=== PATIENT | female | born 1995 ===

== ENCOUNTER 2019-11-29 09:43 | Outpatient (REF) | payer MEDICAID, SELFPAY ==
--- NOTE | 2019-11-29 10:43 | XR_ITS ---
EXAMINATION: XR WRIST, RIGHT XR WRIST, LEFT CLINICAL INFORMATION: M05.9 - Rheumatoid arthritis with rheumatoid factor, unspecified COMPARISON: Bilateral hand wrist 07/16/2019 TECHNIQUE: Each wrist is imaged in 4 views. There are a total of 8 views. FINDINGS: Right wrist: There is subtle narrowing proximal radial carpal compartment and some mild narrowing between the triquetrum and hamate. There are no erosive changes. No visible chondrocalcinosis. There is no acute or healing fracture or dislocation. Mild negative ulnar variance present. Probable mild osteopenia. Left wrist: There is mild narrowing proximal radial carpal compartment. There is no erosive change or chondrocalcinosis. No visible acute or healing fracture or dislocation. Ulnar variance is neutral. Probable mild osteopenia. XR/XR wrist LT w scaphoid IMPRESSION: 1. Right: Mild narrowing proximal radial carpal compartment and mild narrowing between the triquetrum and hamate. No erosive change or chondrocalcinosis. Probable mild osteopenia. 2. Left: Mild narrowing proximal radial carpal compartment. No erosive change or chondrocalcinosis. Probable mild osteopenia.
--- NOTE | 2019-11-29 10:43 | XR_ITS ---
EXAMINATION: XR WRIST, RIGHT XR WRIST, LEFT CLINICAL INFORMATION: M05.9 - Rheumatoid arthritis with rheumatoid factor, unspecified COMPARISON: Bilateral hand wrist 07/16/2019 TECHNIQUE: Each wrist is imaged in 4 views. There are a total of 8 views. FINDINGS: Right wrist: There is subtle narrowing proximal radial carpal compartment and some mild narrowing between the triquetrum and hamate. There are no erosive changes. No visible chondrocalcinosis. There is no acute or healing fracture or dislocation. Mild negative ulnar variance present. Probable mild osteopenia. Left wrist: There is mild narrowing proximal radial carpal compartment. There is no erosive change or chondrocalcinosis. No visible acute or healing fracture or dislocation. Ulnar variance is neutral. Probable mild osteopenia. XR/XR wrist RT w scaphoid IMPRESSION: 1. Right: Mild narrowing proximal radial carpal compartment and mild narrowing between the triquetrum and hamate. No erosive change or chondrocalcinosis. Probable mild osteopenia. 2. Left: Mild narrowing proximal radial carpal compartment. No erosive change or chondrocalcinosis. Probable mild osteopenia.
[2019-11-29 10:56] LABS: MANUAL DIFF FLAG NO
[2019-11-29 11:00] LABS: Basophils Absolute Auto 0.1 X10*3/uL (0.0-0.2); Basophils Percent Auto 0.5 % (0-2); Eosinophils Absolute Auto 0.2 X10*3/uL (0.0-0.4); Eosinophils Percent Auto 1.5 % (0-4); Hematocrit 37.2 % (37-47); Hemoglobin 11.6 g/dl (12.0-16.0); Imm Gran Abs Auto 0.04 X10*3/uL (0.00-0.03); Imm Gran Pct Auto 0.4 % (0.0-0.4); Lymphocytes Absolute Auto 2.6 X10*3/uL (1.2-4.9); Lymphocytes Percent Auto 25.4 % (20-40); Mean Corpuscular HGB Conc 31.2 g/dl (31.0-35.0); Mean Corpuscular Volume 83.4 fL (80-98); Monocytes Absolute Auto 0.6 X10*3/uL (0.1-1.2); Monocytes Percent Auto 6.2 % (2-11); Neutrophils Absolute Auto 6.8 X10*3/uL (2.0-8.3); Platelet Count 504 X10*3/uL (160-400); Red Blood Count 4.46 X10*6/uL (4.20-5.50); Red Cell Distribution Width 14.9 % (11.0-16.0); White Blood Count 10.3 X10*3/uL (4.8-10.8)
[2019-11-29 12:09] LABS: Alanine Aminotransferase 13 U/L (0-31); Alkaline Phosphatase 77 U/L (39-117); Anion Gap 13 (12-20); Aspartate Amino Transferase 13 U/L (5-31); Bilirubin Total 0.4 mg/dL (0.0-1.0); Blood Urea Nitrogen 14 mg/dL (9-16); C Reactive Protein 4.52 mg/dL (< or = 0.50); Calcium 8.6 mg/dL (8.4-10.2); Carbon Dioxide 21 mmol/L (22-29); Chloride 106 mmol/L (96-108); Estimated Glomerular Filt Rate > 60; Glucose Random 84 mg/dL (60-115); Potassium 4.3 mmol/l (3.3-5.1); Sodium 136 mmol/L (135-145); Total Protein 7.6 g/dL (6.5-8.0)
[2019-11-29 13:02] LABS: Erythrocyte Sedimentation Rate 34 MM/HR (0-20)
== END 2019-11-29 09:44 | disposition home or self-care (01) ==
LOC: HO.XRAY 09:43
PROVIDERS: PCP Internal Medicine; Referring Provider Internal Medicine; Visit Provider Student in an Organized Health Care Education/Training Program
DX: M05.9 Rheumatoid arthritis with rheumatoid factor, unspecified (principal); E55.9 Vitamin D deficiency, unspecified
CPT/HCPCS: 36415; 73110; 80053; 85025; 85652; 86140; 99214

== ENCOUNTER → 2019-12-11 07:25 | Outpatient (BNVA) | payer MEDICAID, SELFPAY | PROVIDERS: PCP Internal Medicine; Referring Provider Internal Medicine; Visit Provider Student in an Organized Health Care Education/Training Program | DX: M06.9 Rheumatoid arthritis, unspecified (principal); Z71.89 Other specified counseling | CPT/HCPCS: 99211 ==

== ENCOUNTER 2020-03-11 14:16 | Outpatient (REF) | payer MEDICAID, SELFPAY ==
[2020-03-11 15:47] LABS: MANUAL DIFF FLAG NO
[2020-03-11 15:51] LABS: Basophils Absolute Auto 0.1 X10*3/uL (0.0-0.2); Basophils Percent Auto 0.6 % (0-2); Eosinophils Absolute Auto 0.2 X10*3/uL (0.0-0.4); Eosinophils Percent Auto 1.9 % (0-4); Hematocrit 40.9 % (37-47); Hemoglobin 12.7 g/dl (12.0-16.0); Imm Gran Abs Auto 0.02 X10*3/uL (0.00-0.03); Imm Gran Pct Auto 0.2 % (0.0-0.4); Lymphocytes Absolute Auto 3.3 X10*3/uL (1.2-4.9); Lymphocytes Percent Auto 35.5 % (20-40); Mean Corpuscular HGB Conc 31.1 g/dl (31.0-35.0); Mean Corpuscular Volume 83.8 fL (80-98); Mean Platelet Volume 9.5 fL (9.4-12.3); Monocytes Absolute Auto 0.6 X10*3/uL (0.1-1.2); Monocytes Percent Auto 6.5 % (2-11); Neutrophils Absolute Auto 5.1 X10*3/uL (2.0-8.3); Neutrophils Percent Auto 55.3 % (45-73); Platelet Count 469 X10*3/uL (160-400); Red Blood Count 4.88 X10*6/uL (4.20-5.50); Red Cell Distribution Width 14.6 % (11.0-16.0); White Blood Count 9.3 X10*3/uL (4.8-10.8)
[2020-03-11 16:17] LABS: Alanine Aminotransferase 13 U/L (0-31); Albumin Level 4.2 g/dL (3.5-5.0); Alkaline Phosphatase 82 U/L (39-117); Anion Gap 14 (12-20); Aspartate Amino Transferase 14 U/L (5-31); Bilirubin Total 0.4 mg/dL (0.0-1.0); Blood Urea Nitrogen 14 mg/dL (9-16); C Reactive Protein 3.27 mg/dL (< or = 0.50); Calcium 9.1 mg/dL (8.4-10.2); Carbon Dioxide 24 mmol/L (22-29); Chloride 104 mmol/L (96-108); Estimated Glomerular Filt Rate > 60; Glucose Random 88 mg/dL (60-115); Potassium 4.5 mmol/L (3.3-5.1); Sodium 137 mmol/L (135-145)
[2020-03-11 16:41] LABS: Erythrocyte Sedimentation Rate 28 MM/HR (0-20)
[2020-03-14 22:12] LABS: Vitamin D 25-OH, D2 5 ng/mL; Vitamin D 25-OH, D3 10 ng/mL; Vitamin D 25-OH, Total 15 ng/mL (30-100)
== END 2020-03-11 14:17 | disposition home or self-care (01) ==
LOC: HO.LAB 14:16
PROVIDERS: PCP Internal Medicine; Referring Provider Internal Medicine; Visit Provider Student in an Organized Health Care Education/Training Program
DX: M05.9 Rheumatoid arthritis with rheumatoid factor, unspecified (principal); E55.9 Vitamin D deficiency, unspecified
CPT/HCPCS: 36415; 80053; 82306; 85025; 85652; 86140; 99212

== ENCOUNTER 2020-11-09 17:06 | Outpatient (REF) | payer MEDICAID, SELFPAY ==
[2020-11-09 17:20] LABS: MANUAL DIFF FLAG NO
[2020-11-09 18:06] LABS: Basophils Absolute Auto 0.1 X10*3/uL (0.0-0.2); Basophils Percent Auto 0.7 % (0-2); Eosinophils Absolute Auto 0.2 X10*3/uL (0.0-0.4); Eosinophils Percent Auto 2.2 % (0-4); Hematocrit 38.8 % (37-47); Hemoglobin 12.6 g/dl (12.0-16.0); Imm Gran Abs Auto 0.02 X10*3/uL (0.00-0.03); Imm Gran Pct Auto 0.2 % (0.0-0.4); Lymphocytes Absolute Auto 3.8 X10*3/uL (1.2-4.9); Lymphocytes Percent Auto 42.1 % (20-40); Mean Corpuscular HGB Conc 32.5 g/dl (31.0-35.0); Mean Corpuscular Hemoglobin 27.3 pg (27.0-33.0); Mean Platelet Volume 9.4 fL (9.4-12.3); Monocytes Absolute Auto 0.6 X10*3/uL (0.1-1.2); Monocytes Percent Auto 6.3 % (2-11); Neutrophils Absolute Auto 4.4 X10*3/uL (2.0-8.3); Neutrophils Percent Auto 48.5 % (45-73); Platelet Count 459 X10*3/uL (160-400); Red Blood Count 4.62 X10*6/uL (4.20-5.50); Red Cell Distribution Width 14.3 % (11.0-16.0)
[2020-11-09 18:27] LABS: Alanine Aminotransferase 12 U/L (0-31); Albumin Level 4.3 g/dL (3.5-5.0); Alkaline Phosphatase 91 U/L (39-117); Anion Gap 12 (12-20); Aspartate Amino Transferase 14 U/L (5-31); Bilirubin Total 0.2 mg/dL (0.0-1.0); Blood Urea Nitrogen 13 mg/dL (9-16); C Reactive Protein 1.92 mg/dL (< or = 0.50); Calcium 9.3 mg/dL (8.4-10.2); Carbon Dioxide 24 mmol/L (22-29); Chloride 106 mmol/L (96-108); Estimated Glomerular Filt Rate > 60; Glucose Random 90 mg/dL (60-115); Potassium 4.2 mmol/L (3.3-5.1); Sodium 138 mmol/L (135-145); Total Protein 7.9 g/dL (6.5-8.0)
[2020-11-09 18:51] LABS: Erythrocyte Sedimentation Rate 18 MM/HR (0-20)
== END 2020-11-09 17:07 | disposition home or self-care (01) ==
LOC: HO.LAB 17:06
PROVIDERS: Student in an Organized Health Care Education/Training Program; PCP Internal Medicine; Visit Provider Nurse Practitioner Family
DX: M05.9 Rheumatoid arthritis with rheumatoid factor, unspecified (principal)
CPT/HCPCS: 36415; 80053; 85025; 85652; 86140

== ENCOUNTER → 2020-11-10 09:03 | Outpatient (BNVA) | payer MEDICAID, SELFPAY | PROVIDERS: PCP Internal Medicine; Visit Provider Nurse Practitioner Family | DX: M05.9 Rheumatoid arthritis with rheumatoid factor, unspecified (principal); E55.9 Vitamin D deficiency, unspecified | CPT/HCPCS: 99212 ==

== ENCOUNTER 2021-01-08 11:30 | Outpatient (REF) | payer MEDICAID, SELFPAY ==
[2021-01-08 12:16] LABS: MANUAL DIFF FLAG NO
[2021-01-08 12:49] LABS: Basophils Absolute Auto 0.1 X10*3/uL (0.0-0.2); Basophils Percent Auto 0.7 % (0-2); Eosinophils Absolute Auto 0.1 X10*3/uL (0.0-0.4); Eosinophils Percent Auto 1.5 % (0-4); Hematocrit 40.2 % (37.0-47.0); Hemoglobin 12.9 g/dl (12.0-16.0); Imm Gran Abs Auto 0.02 X10*3/uL (0.00-0.03); Imm Gran Pct Auto 0.2 % (0.0-0.4); Lymphocytes Absolute Auto 3.1 X10*3/uL (1.2-4.9); Lymphocytes Percent Auto 38.1 % (20-40); Mean Corpuscular HGB Conc 32.1 g/dl (31.0-35.0); Mean Corpuscular Hemoglobin 27.3 pg (27.0-33.0); Mean Corpuscular Volume 85.2 fL (80.0-98.0); Mean Platelet Volume 9.4 fL (9.4-12.3); Monocytes Absolute Auto 0.8 X10*3/uL (0.1-1.2); Monocytes Percent Auto 9.9 % (2-11); Neutrophils Absolute Auto 4.1 x10*3/uL (2.0-8.3); Neutrophils Percent Auto 49.6 % (45-73); Platelet Count 453 X10*3/uL (160-400); Red Blood Count 4.72 X10*6/uL (4.20-5.50); Red Cell Distribution Width 13.9 % (11.0-16.0); White Blood Count 8.2 X10*3/uL (4.8-10.8)
[2021-01-08 13:16] LABS: Alanine Aminotransferase 18 U/L (0-31); Albumin Level 4.4 g/dL (3.5-5.0); Alkaline Phosphatase 90 U/L (39-117); Anion Gap 13 (12-20); Aspartate Amino Transferase 16 U/L (5-31); Bilirubin Total 0.4 mg/dL (0.0-1.0); Blood Urea Nitrogen 9 mg/dL (9-16); C Reactive Protein 1.03 mg/dL (< or = 0.50); Calcium 9.7 mg/dL (8.4-10.2); Carbon Dioxide 24 mmol/L (22-29); Chloride 108 mmol/L (96-108); Estimated Glomerular Filt Rate > 60; Glucose Random 68 mg/dL (60-115); Potassium 4.2 mmol/L (3.3-5.1); Sodium 141 mmol/L (135-145)
[2021-01-08 13:38] LABS: Vitamin D 25-OH Total 13.6 ng/mL (>30)
[2021-01-08 13:40] LABS: Erythrocyte Sedimentation Rate 13 MM/HR (0-20)
== END 2021-01-08 11:31 | disposition home or self-care (01) ==
LOC: HO.LAB 11:30
PROVIDERS: PCP Internal Medicine; Visit Provider Nurse Practitioner Family
DX: M05.9 Rheumatoid arthritis with rheumatoid factor, unspecified (principal); E55.9 Vitamin D deficiency, unspecified; Z79.899 Other long term (current) drug therapy
CPT/HCPCS: 36415; 80053; 82306; 85025; 85652; 86140; 99212

== ENCOUNTER 2021-06-15 17:02 | Outpatient (REF) | payer MEDICAID, SELFPAY ==
[2021-06-15 17:12] LABS: MANUAL DIFF FLAG NO
[2021-06-15 17:52] LABS: Basophils Absolute Auto 0.1 X10*3/uL (0.0-0.2); Basophils Percent Auto 0.6 % (0-2); Eosinophils Absolute Auto 0.4 X10*3/uL (0.0-0.4); Eosinophils Percent Auto 4.4 % (0-4); Hemoglobin 12.1 g/dl (12.0-16.0); Imm Gran Abs Auto 0.03 X10*3/uL (0.00-0.03); Imm Gran Pct Auto 0.3 % (0.0-0.4); Lymphocytes Absolute Auto 3.5 X10*3/uL (1.2-4.9); Mean Corpuscular HGB Conc 31.8 g/dl (31.0-35.0); Mean Corpuscular Hemoglobin 26.5 pg (27.0-33.0); Mean Corpuscular Volume 83.3 fL (80.0-98.0); Mean Platelet Volume 9.1 fL (9.4-12.3); Monocytes Absolute Auto 0.6 X10*3/uL (0.1-1.2); Monocytes Percent Auto 6.8 % (2-11); Neutrophils Absolute Auto 4.8 x10*3/uL (2.0-8.3); Neutrophils Percent Auto 50.9 % (45-73); Platelet Count 460 X10*3/uL (160-400); Red Blood Count 4.56 X10*6/uL (4.20-5.50); Red Cell Distribution Width 14.7 % (11.0-16.0); White Blood Count 9.4 X10*3/uL (4.8-10.8)
[2021-06-15 18:17] LABS: Alanine Aminotransferase 9 U/L (0-31); Albumin Level 4.1 g/dL (3.5-5.0); Alkaline Phosphatase 84 U/L (39-117); Anion Gap 12 (12-20); Aspartate Amino Transferase 11 U/L (5-31); Bilirubin Total < 0.2 mg/dL (0.0-1.0); Blood Urea Nitrogen 14 mg/dL (9-16); C Reactive Protein 4.51 mg/dL (< or = 0.50); Calcium 9.7 mg/dL (8.4-10.2); Carbon Dioxide 23 mmol/L (22-29); Chloride 106 mmol/L (96-108); Estimated Glomerular Filt Rate > 60; Glucose Random 90 mg/dL (60-115); Potassium 4.2 mmol/L (3.3-5.1); Sodium 137 mmol/L (135-145); Total Protein 7.8 g/dL (6.5-8.0)
[2021-06-15 18:24] LABS: Erythrocyte Sedimentation Rate 27 MM/HR (0-20)
== END 2021-06-15 17:03 | disposition home or self-care (01) ==
LOC: HO.LAB 17:02
PROVIDERS: PCP Internal Medicine; Visit Provider Nurse Practitioner Family
DX: M05.9 Rheumatoid arthritis with rheumatoid factor, unspecified (principal)
CPT/HCPCS: 36415; 80053; 85025; 85652; 86140

== ENCOUNTER 2021-06-21 16:47 | Outpatient (REF) | payer MEDICAID, SELFPAY ==
[2021-06-21 16:55] LABS: MANUAL DIFF FLAG NO
[2021-06-21 18:25] LABS: Basophils Absolute Auto 0.1 X10*3/uL (0.0-0.2); Basophils Percent Auto 0.5 % (0-2); Eosinophils Absolute Auto 0.4 X10*3/uL (0.0-0.4); Eosinophils Percent Auto 3.6 % (0-4); Hematocrit 39.7 % (37.0-47.0); Hemoglobin 12.7 g/dl (12.0-16.0); Imm Gran Abs Auto 0.03 X10*3/uL (0.00-0.03); Imm Gran Pct Auto 0.3 % (0.0-0.4); Lymphocytes Percent Auto 36.1 % (20-40); Mean Corpuscular Hemoglobin 26.7 pg (27.0-33.0); Mean Corpuscular Volume 83.4 fL (80.0-98.0); Mean Platelet Volume 9.6 fL (9.4-12.3); Monocytes Absolute Auto 0.8 X10*3/uL (0.1-1.2); Monocytes Percent Auto 7.2 % (2-11); Neutrophils Absolute Auto 5.7 x10*3/uL (2.0-8.3); Neutrophils Percent Auto 52.3 % (45-73); Platelet Count 476 X10*3/uL (160-400); Red Blood Count 4.76 X10*6/uL (4.20-5.50); Red Cell Distribution Width 14.4 % (11.0-16.0); White Blood Count 10.9 X10*3/uL (4.8-10.8)
[2021-06-21 18:51] LABS: Alanine Aminotransferase 12 U/L (0-31); Albumin Level 4.1 g/dL (3.5-5.0); Alkaline Phosphatase 82 U/L (39-117); Anion Gap 13 (12-20); Aspartate Amino Transferase 13 U/L (5-31); Bilirubin Total 0.3 mg/dL (0.0-1.0); Blood Urea Nitrogen 13 mg/dL (9-16); C Reactive Protein 1.78 mg/dL (< or = 0.50); Calcium 9.7 mg/dL (8.4-10.2); Carbon Dioxide 25 mmol/L (22-29); Chloride 104 mmol/L (96-108); Estimated Glomerular Filt Rate > 60; Glucose Random 87 mg/dL (60-115); Potassium 4.5 mmol/L (3.3-5.1); Sodium 137 mmol/L (135-145)
[2021-06-21 19:18] LABS: Erythrocyte Sedimentation Rate 17 MM/HR (0-20)
== END 2021-06-21 16:48 | disposition home or self-care (01) ==
LOC: HO.LAB 16:47
PROVIDERS: PCP Internal Medicine; Visit Provider Nurse Practitioner Family
DX: M05.9 Rheumatoid arthritis with rheumatoid factor, unspecified (principal)
CPT/HCPCS: 36415; 80053; 85025; 85652; 86140

== ENCOUNTER → 2021-06-30 08:45 | Outpatient (BNVA) | payer MEDICAID, SELFPAY | PROVIDERS: PCP Internal Medicine; Visit Provider Nurse Practitioner Family | DX: M05.9 Rheumatoid arthritis with rheumatoid factor, unspecified (principal); E55.9 Vitamin D deficiency, unspecified; Z79.899 Other long term (current) drug therapy | CPT/HCPCS: 99212 ==

== ENCOUNTER 2021-07-01 16:59 | Outpatient (REF) | payer MEDICAID, SELFPAY ==
[2021-07-01 17:12] LABS: MANUAL DIFF FLAG NO
[2021-07-01 17:31] LABS: Basophils Absolute Auto 0.1 X10*3/uL (0.0-0.2); Basophils Percent Auto 0.8 % (0-2); Eosinophils Absolute Auto 0.2 X10*3/uL (0.0-0.4); Hematocrit 39.7 % (37.0-47.0); Hemoglobin 12.4 g/dl (12.0-16.0); Imm Gran Abs Auto 0.04 X10*3/uL (0.00-0.03); Imm Gran Pct Auto 0.4 % (0.0-0.4); Lymphocytes Absolute Auto 4.3 X10*3/uL (1.2-4.9); Lymphocytes Percent Auto 41.7 % (20-40); Mean Corpuscular HGB Conc 31.2 g/dl (31.0-35.0); Mean Corpuscular Hemoglobin 26.3 pg (27.0-33.0); Mean Corpuscular Volume 84.3 fL (80.0-98.0); Mean Platelet Volume 9.4 fL (9.4-12.3); Monocytes Absolute Auto 0.6 X10*3/uL (0.1-1.2); Monocytes Percent Auto 5.9 % (2-11); Neutrophils Percent Auto 49.2 % (45-73); Platelet Count 496 X10*3/uL (160-400); Red Blood Count 4.71 X10*6/uL (4.20-5.50); Red Cell Distribution Width 14.6 % (11.0-16.0); White Blood Count 10.2 X10*3/uL (4.8-10.8)
[2021-07-01 18:02] LABS: Erythrocyte Sedimentation Rate 14 MM/HR (0-20)
[2021-07-01 18:21] LABS: Alanine Aminotransferase 12 U/L (0-31); Albumin Level 4.2 g/dL (3.5-5.0); Alkaline Phosphatase 83 U/L (39-117); Anion Gap 13 (12-20); Aspartate Amino Transferase 12 U/L (5-31); Bilirubin Total < 0.2 mg/dL (0.0-1.0); Blood Urea Nitrogen 11 mg/dL (9-16); C Reactive Protein 1.39 mg/dL (< or = 0.50); Calcium 9.6 mg/dL (8.4-10.2); Carbon Dioxide 26 mmol/L (22-29); Chloride 105 mmol/L (96-108); Estimated Glomerular Filt Rate > 60; Glucose Random 98 mg/dL (60-115); Potassium 4.5 mmol/L (3.3-5.1); Sodium 139 mmol/L (135-145)
[2021-07-02 05:02] LABS: HBS Num1 0.89 mIU/mL (0-7.99); HBc Num1 0.05 S/CO (0.00-0.79); Hepatitis A Antibody IgM 0.25 Index (0-0.79); Hepatitis B Core Antibody Nonreactive (Nonreactive); Hepatitis B Surface Antigen Negative (Negative); ~HepC Num1 0.08 S/CO (0.00-0.79); ~Hepatitis A Antibody IgM Nonreactive (Nonreactive); ~Hepatitis B Surface Antibody NONREACTIVE (Nonreactive); ~Hepatitis C Antibody Nonreactive (Nonreactive)
[2021-07-05 12:55] LABS: Vitamin D 25-OH, D2 <4 ng/mL; Vitamin D 25-OH, D3 17 ng/mL; Vitamin D 25-OH, Total 17 ng/mL (30-100)
== END 2021-07-01 17:00 | disposition home or self-care (01) ==
LOC: HO.LAB 16:59
PROVIDERS: PCP Internal Medicine; Visit Provider Nurse Practitioner Family
DX: M05.9 Rheumatoid arthritis with rheumatoid factor, unspecified (principal); R79.89 Other specified abnormal findings of blood chemistry
CPT/HCPCS: 36415; 80053; 82306; 85025; 85652; 86140; 86704; 86706; 86709; 86803; 87340

== ENCOUNTER 2021-07-02 16:46 | Outpatient (REF) | payer MEDICAID, SELFPAY ==
[2021-07-06 05:52] LABS: TS Negative Control Passed; TS Panel A 0; TS Panel B 0; TS Positive Control Passed; TSpotTB Negative (Negative)
== END 2021-07-02 16:47 | disposition home or self-care (01) ==
LOC: HO.LAB 16:46
PROVIDERS: PCP Internal Medicine; Visit Provider Nurse Practitioner Family
DX: M05.9 Rheumatoid arthritis with rheumatoid factor, unspecified (principal); Z11.1 Encounter for screening for respiratory tuberculosis
CPT/HCPCS: 36415; 86481

== ENCOUNTER → 2021-08-05 09:28 | Outpatient (BNVA) | payer MEDICAID, SELFPAY | PROVIDERS: PCP Internal Medicine; Visit Provider Nurse Practitioner Family | DX: M05.9 Rheumatoid arthritis with rheumatoid factor, unspecified (principal); D75.839 Thrombocytosis, unspecified; E55.9 Vitamin D deficiency, unspecified | CPT/HCPCS: 99212 ==

== ENCOUNTER 2021-08-06 16:54 | Outpatient (REF) | payer MEDICAID, SELFPAY ==
[2021-08-06 17:09] LABS: Basophils Absolute Auto 0.1 X10*3/uL (0.0-0.2); Basophils Percent Auto 0.5 % (0-2); Eosinophils Absolute Auto 0.2 X10*3/uL (0.0-0.4); Eosinophils Percent Auto 1.4 % (0-4); Hematocrit 40.6 % (37.0-47.0); Imm Gran Abs Auto 0.03 X10*3/uL (0.00-0.03); Imm Gran Pct Auto 0.3 % (0.0-0.4); Lymphocytes Absolute Auto 5.3 X10*3/uL (1.2-4.9); Lymphocytes Percent Auto 45.9 % (20-40); MANUAL DIFF FLAG SCAN; Mean Corpuscular Hemoglobin 27.1 pg (27.0-33.0); Mean Corpuscular Volume 84.6 fL (80.0-98.0); Mean Platelet Volume 9.1 fL (9.4-12.3); Monocytes Absolute Auto 0.6 X10*3/uL (0.1-1.2); Neutrophils Absolute Auto 5.5 x10*3/uL (2.0-8.3); Neutrophils Percent Auto 46.9 % (45-73); Platelet Count 458 X10*3/uL (160-400); Red Cell Distribution Width 14.7 % (11.0-16.0); SCAN SMEAR FLAG 1; White Blood Count 11.6 X10*3/uL (4.8-10.8)
[2021-08-06 17:32] LABS: SLIDE REVIEW VERIFIED
[2021-08-06 17:34] LABS: Alanine Aminotransferase 12 U/L (0-31); Albumin Level 4.3 g/dL (3.5-5.0); Alkaline Phosphatase 92 U/L (39-117); Anion Gap 13 (12-20); Aspartate Amino Transferase 13 U/L (5-31); Bilirubin Total 0.3 mg/dL (0.0-1.0); Blood Urea Nitrogen 10 mg/dL (9-16); C Reactive Protein 0.73 mg/dL (< or = 0.50); Calcium 9.7 mg/dL (8.4-10.2); Carbon Dioxide 26 mmol/L (22-29); Chloride 104 mmol/L (96-108); Cholesterol 168 mg/dL; Estimated Glomerular Filt Rate > 60; Glucose Random 81 mg/dL (60-115); HDL Cholesterol 36 mg/dL; LDL Cholesterol Calculated 108 mg/dl; Potassium 4.3 mmol/L (3.3-5.1); Sodium 139 mmol/L (135-145); Total Protein 7.7 g/dL (6.5-8.0); Triglycerides 124 mg/dL
[2021-08-06 17:53] LABS: Vitamin D 25-OH Total 20.5 ng/mL (>30)
[2021-08-06 18:01] LABS: Erythrocyte Sedimentation Rate 9 MM/HR (0-20)
== END 2021-08-06 16:55 | disposition home or self-care (01) ==
LOC: HO.XRAY 16:54
PROVIDERS: PCP Internal Medicine; Visit Provider Nurse Practitioner Family
DX: M05.9 Rheumatoid arthritis with rheumatoid factor, unspecified (principal); E55.9 Vitamin D deficiency, unspecified
CPT/HCPCS: 36415; 80053; 80061; 82306; 85025; 85652; 86140

== ENCOUNTER 2021-08-17 16:51 | Outpatient (REF) | payer MEDICAID, SELFPAY ==
--- NOTE | ~2021-08-17 | XR_ITS ---
EXAMINATION: XR WRIST, RIGHT CLINICAL INFORMATION: Pain COMPARISON: Right wrist radiograph from 11/28/2021 TECHNIQUE: 5 views of the right wrist. FINDINGS: No acute visible fracture or dislocation. Interval progression of the radiocarpal joint space narrowing with subchondral cystic changes, sclerosis, and periarticular osteophyte formation. Joint spaces and alignment are otherwise maintained. Soft tissues are unremarkable. XR/XR wrist RT 2V IMPRESSION: 1. No acute visible fracture or dislocation. 2. Interval progression of the radiocarpal joint space narrowing.
== END 2021-08-17 16:52 | disposition home or self-care (01) ==
LOC: HO.XRAY 16:51
PROVIDERS: PCP Internal Medicine; Visit Provider Nurse Practitioner Family
DX: M25.531 Pain in right wrist (principal)
CPT/HCPCS: 73100

== ENCOUNTER 2021-09-28 11:00 | Outpatient (REF) | payer MEDICAID, SELFPAY ==
--- NOTE | ~2021-09-28 | XR_ITS ---
EXAMINATION: XR ANKLE, LEFT CLINICAL INFORMATION: Left ankle pain COMPARISON: Left ankle radiographs 07/16/2019 TECHNIQUE: AP, lateral, and mortise views of the left ankle. FINDINGS: No fracture or dislocation. No ankle joint effusion. Ankle mortise is congruent and intact. Ankle and subtalar joint spaces are maintained. Small calcification/ossicle of the distal Achilles tendon at the calcaneal insertion. Small Elma exostosis noted. No appreciable thickening of the Achilles tendon. XR/XR ankle LT min 3V IMPRESSION: No acute osseous injury or osteoarthritic change.
== END 2021-09-28 11:01 | disposition home or self-care (01) ==
LOC: HO.XRAY 11:00
PROVIDERS: PCP Internal Medicine; Visit Provider Emergency Medicine
DX: M25.572 Pain in left ankle and joints of left foot (principal)
CPT/HCPCS: 73610

== ENCOUNTER → 2021-11-05 07:53 | Outpatient (BNVA) | payer MEDICAID, SELFPAY | PROVIDERS: PCP Internal Medicine; Visit Provider Nurse Practitioner Family | DX: M05.9 Rheumatoid arthritis with rheumatoid factor, unspecified (principal); E55.9 Vitamin D deficiency, unspecified; D75.839 Thrombocytosis, unspecified | CPT/HCPCS: 99212 ==

== ENCOUNTER 2021-11-10 12:19 | Outpatient (REF) | payer MEDICAID, SELFPAY ==
[2021-11-10 12:38] LABS: MANUAL DIFF FLAG NO
[2021-11-10 13:17] LABS: Basophils Absolute Auto 0.1 X10*3/uL (0.0-0.2); Basophils Percent Auto 0.4 % (0-2); Eosinophils Absolute Auto 0.1 X10*3/uL (0.0-0.4); Eosinophils Percent Auto 0.6 % (0-4); Hemoglobin 12.3 g/dl (12.0-16.0); Imm Gran Abs Auto 0.06 X10*3/uL (0.00-0.03); Imm Gran Pct Auto 0.5 % (0.0-0.4); Lymphocytes Absolute Auto 4.2 X10*3/uL (1.2-4.9); Lymphocytes Percent Auto 33.2 % (20-40); Mean Corpuscular HGB Conc 31.5 g/dl (31.0-35.0); Mean Corpuscular Volume 85.5 fL (80.0-98.0); Mean Platelet Volume 9.2 fL (9.4-12.3); Monocytes Absolute Auto 0.7 X10*3/uL (0.1-1.2); Monocytes Percent Auto 5.3 % (2-11); Neutrophils Absolute Auto 7.6 x10*3/uL (2.0-8.3); Platelet Count 576 X10*3/uL (160-400); Red Blood Count 4.56 X10*6/uL (4.20-5.50); Red Cell Distribution Width 13.9 % (11.0-16.0); White Blood Count 12.7 X10*3/uL (4.8-10.8)
[2021-11-10 13:56] LABS: Alanine Aminotransferase 10 U/L (0-31); Albumin Level 4.3 g/dL (3.5-5.0); Alkaline Phosphatase 79 U/L (39-117); Anion Gap 15 (12-20); Aspartate Amino Transferase 12 U/L (5-31); Bilirubin Total 0.3 mg/dL (0.0-1.0); Blood Urea Nitrogen 13 mg/dL (9-16); C Reactive Protein 1.92 mg/dL (< or = 0.50); Calcium 9.8 mg/dL (8.4-10.2); Carbon Dioxide 27 mmol/L (22-29); Chloride 105 mmol/L (96-108); Erythrocyte Sedimentation Rate 25 MM/HR (0-20); Estimated Glomerular Filt Rate > 60; Glucose Random 83 mg/dL (60-115); Sodium 143 mmol/L (135-145); Total Protein 7.8 g/dL (6.5-8.0)
[2021-11-10 14:19] LABS: Vitamin D 25-OH Total 27.2 ng/mL (>30)
== END 2021-11-10 12:20 | disposition home or self-care (01) ==
LOC: HO.LAB 12:19
PROVIDERS: Internal Medicine Medical Oncology; PCP Internal Medicine; Visit Provider Nurse Practitioner Family
DX: D75.839 Thrombocytosis, unspecified (principal); M05.9 Rheumatoid arthritis with rheumatoid factor, unspecified; E55.9 Vitamin D deficiency, unspecified
CPT/HCPCS: 36415; 80053; 82306; 85025; 85652; 86140

== ENCOUNTER 2022-02-08 10:23 | Outpatient (REF) | payer MEDICAID, SELFPAY ==
[2022-02-08 13:45] LABS: MANUAL DIFF FLAG NO
[2022-02-08 13:53] LABS: Basophils Percent Auto 0.4 % (0-2); Eosinophils Absolute Auto 0.1 X10*3/uL (0.0-0.4); Eosinophils Percent Auto 1.1 % (0-4); Hemoglobin 11.7 g/dl (12.0-16.0); Imm Gran Abs Auto 0.05 X10*3/uL (0.00-0.03); Imm Gran Pct Auto 0.5 % (0.0-0.4); Lymphocytes Absolute Auto 1.9 X10*3/uL (1.2-4.9); Lymphocytes Percent Auto 17.9 % (20-40); Mean Corpuscular HGB Conc 30.8 g/dl (31.0-35.0); Mean Corpuscular Hemoglobin 25.5 pg (27.0-33.0); Mean Platelet Volume 9.6 fL (9.4-12.3); Monocytes Absolute Auto 0.6 X10*3/uL (0.1-1.2); Monocytes Percent Auto 5.4 % (2-11); Neutrophils Absolute Auto 8.1 x10*3/uL (2.0-8.3); Neutrophils Percent Auto 74.7 % (45-73); Platelet Count 494 X10*3/uL (160-400); Red Blood Count 4.58 X10*6/uL (4.20-5.50); Red Cell Distribution Width 14.8 % (11.0-16.0); White Blood Count 10.8 X10*3/uL (4.8-10.8)
[2022-02-08 14:05] LABS: Alanine Aminotransferase 11 U/L (0-31); Aspartate Amino Transferase 13 U/L (5-31); C Reactive Protein 2.25 mg/dL (< or = 0.50); Cholesterol 161 mg/dL; Estimated Glomerular Filt Rate > 60; HDL Cholesterol 35 mg/dL; LDL Cholesterol Calculated 109 mg/dl; Triglycerides 85 mg/dL
[2022-02-08 14:45] LABS: Erythrocyte Sedimentation Rate 31 MM/HR (0-20)
[2022-02-08 15:01] LABS: Reflex LDLD? No
== END 2022-02-08 10:24 | disposition home or self-care (01) ==
LOC: HO.10HDL 10:23
PROVIDERS: Visit Provider Nurse Practitioner Family
DX: M05.9 Rheumatoid arthritis with rheumatoid factor, unspecified (principal); Z79.899 Other long term (current) drug therapy
CPT/HCPCS: 36415; 80061; 82565; 84450; 84460; 85025; 85652; 86140

== ENCOUNTER → 2022-03-04 10:19 | Outpatient (BNVA) | payer MEDICAID, SELFPAY | PROVIDERS: PCP Internal Medicine; Visit Provider Nurse Practitioner Family | DX: M05.9 Rheumatoid arthritis with rheumatoid factor, unspecified (principal); M25.522 Pain in left elbow; E55.9 Vitamin D deficiency, unspecified; D75.839 Thrombocytosis, unspecified; Z79.899 Other long term (current) drug therapy; Z97.5 Presence of (intrauterine) contraceptive device | CPT/HCPCS: 99212 ==

== ENCOUNTER 2022-03-08 08:36 | Outpatient (REF) | payer MEDICAID, SELFPAY ==
[2022-03-08 10:37] LABS: MANUAL DIFF FLAG NO
[2022-03-08 10:44] LABS: Baso%MD 0.9 %; Basophils Absolute Auto 0.1 X10*3/uL (0.0-0.2); Basophils Percent Auto 0.9 % (0-2); Eos%MD 1.4 %; Eosinophils Absolute Auto 0.1 X10*3/uL (0.0-0.4); Eosinophils Percent Auto 1.4 % (0-4); Hematocrit 41.1 % (37.0-47.0); Hemoglobin 12.8 g/dl (12.0-16.0); IG%MD 0.2 %; Imm Gran Abs Auto 0.01 X10*3/uL (0.00-0.03); Imm Gran Pct Auto 0.2 % (0.0-0.4); Lymphocytes Absolute Auto 1.8 X10*3/uL (1.2-4.9); Mean Corpuscular HGB Conc 31.1 g/dl (31.0-35.0); Mean Corpuscular Hemoglobin 26.1 pg (27.0-33.0); Mean Corpuscular Volume 83.7 fL (80.0-98.0); Mean Platelet Volume 9.3 fL (9.4-12.3); Mono%MD 4.3 %; Monocytes Absolute Auto 0.3 X10*3/uL (0.1-1.2); Monocytes Percent Auto 4.3 % (2-11); Neut%MD 62.2 %; Neutrophils Absolute Auto 3.6 x10*3/uL (2.0-8.3); Neutrophils Percent Auto 62.2 % (45-73); Platelet Count 449 X10*3/uL (160-400); Red Blood Count 4.91 X10*6/uL (4.20-5.50); Red Cell Distribution Width 15.4 % (11.0-16.0); White Blood Count 5.8 X10*3/uL (4.8-10.8)
[2022-03-08 12:03] LABS: Ferritin 42 ng/mL (10-122)
[2022-03-08 12:05] LABS: Alanine Aminotransferase 13 U/L (0-31); Albumin Level 4.1 g/dL (3.5-5.0); Alkaline Phosphatase 85 U/L (39-117); Anion Gap 12 (12-20); Aspartate Amino Transferase 14 U/L (5-31); Bilirubin Total 0.5 mg/dL (0.0-1.0); Blood Urea Nitrogen 8 mg/dL (9-16); C Reactive Protein 1.54 mg/dL (< or = 0.50); Calcium 9.3 mg/dL (8.4-10.2); Carbon Dioxide 24 mmol/L (22-29); Chloride 107 mmol/L (96-108); Estimated Glomerular Filt Rate > 60; Glucose Random 112 mg/dL (60-115); Iron 117 mcg/dL (30-160); Lactate Dehydrogenase 184 U/L (122-220); Percent Iron Saturation 40 % (15-50); Potassium 4.2 mmol/L (3.3-5.1); Sodium 139 mmol/L (135-145); Total Iron Binding Capacity 295 mcg/dL (228-428); Total Protein 7.4 g/dL (6.5-8.0); Unsaturated Iron Binding 178 ug/dL
[2022-03-08 12:43] LABS: Band Neutrophils Percent 0 % (3-5); Basophils Abs Manual 0.1 X10*3/uL (0.0-0.2); Basophils Percent Manual 1 % (0-2); Eosinophils Absolute Manual 0.1 X10*3/uL (0.0-0.4); Eosinophils Percent Manual 2 % (0-4); Lymphocytes Absolute Manual 1.9 X10*3/uL (1.2-4.9); Lymphocytes Percent Manual 33 % (20-40); Monocytes Absolute Manual 0.1 X10*3/uL (0.1-1.2); Monocytes Percent Manual 2 % (2-11); Neutrophils Absolute Manual 3.6 X10*3/uL (2.0-8.3); Neutrophils Percent Manual 62 % (45-73)
[2022-03-08 12:45] LABS: Burr Cells 2+ (3-5) /OIF; Platelet Estimate NORMAL (NORMAL); Platelet Morphology Comment NORMAL; RBC Morphology NOTED
[2022-03-08 13:20] LABS: Erythrocyte Sedimentation Rate 12 MM/HR (0-20)
== END 2022-03-08 08:37 | disposition home or self-care (01) ==
LOC: HO.10HDL 08:36
PROVIDERS: Absent Provider Nurse Practitioner Family; Visit Provider Internal Medicine Medical Oncology
DX: D75.839 Thrombocytosis, unspecified (principal); R31.9 Hematuria, unspecified; M05.9 Rheumatoid arthritis with rheumatoid factor, unspecified; Z79.899 Other long term (current) drug therapy
CPT/HCPCS: 36415; 80053; 81219; 81270; 81279; 81339; 82728; 83540; 83615; 85007; 85025; 85027; 85652; 86140

== ENCOUNTER → 2022-03-31 12:58 | Outpatient (BNVA) | payer MEDICAID, SELFPAY | PROVIDERS: PCP Family Medicine; Visit Provider Nurse Practitioner Family | DX: M05.9 Rheumatoid arthritis with rheumatoid factor, unspecified (principal); M25.531 Pain in right wrist; D75.839 Thrombocytosis, unspecified; E55.9 Vitamin D deficiency, unspecified; Z79.899 Other long term (current) drug therapy | CPT/HCPCS: 99212 ==

== ENCOUNTER 2022-04-27 08:12 | Outpatient (REF) | payer MEDICAID, SELFPAY ==
[2022-04-27 10:51] LABS: MANUAL DIFF FLAG NO
[2022-04-27 11:08] LABS: Basophils Percent Auto 0.4 % (0-2); Eosinophils Percent Auto 0.1 % (0-4); Hematocrit 41.6 % (37.0-47.0); Hemoglobin 13.4 g/dl (12.0-16.0); Imm Gran Abs Auto 0.05 X10*3/uL (0.00-0.03); Imm Gran Pct Auto 0.5 % (0.0-0.4); Lymphocytes Absolute Auto 2.3 X10*3/uL (1.2-4.9); Lymphocytes Percent Auto 22.1 % (20-40); Mean Corpuscular HGB Conc 32.2 g/dl (31.0-35.0); Mean Corpuscular Hemoglobin 28.3 pg (27.0-33.0); Mean Corpuscular Volume 87.9 fL (80.0-98.0); Monocytes Absolute Auto 0.5 X10*3/uL (0.1-1.2); Monocytes Percent Auto 4.8 % (2-11); Neutrophils Absolute Auto 7.4 x10*3/uL (2.0-8.3); Neutrophils Percent Auto 72.1 % (45-73); Platelet Count 471 X10*3/uL (160-400); Red Blood Count 4.73 X10*6/uL (4.20-5.50); Red Cell Distribution Width 17.3 % (11.0-16.0); White Blood Count 10.3 X10*3/uL (4.8-10.8)
[2022-04-27 11:56] LABS: Alanine Aminotransferase 16 U/L (0-31); Albumin Level 4.1 g/dL (3.5-5.0); Alkaline Phosphatase 70 U/L (39-117); Anion Gap 12 (12-20); Aspartate Amino Transferase 12 U/L (5-31); Bilirubin Total 0.5 mg/dL (0.0-1.0); Blood Urea Nitrogen 10 mg/dL (9-16); C Reactive Protein 0.28 mg/dL (< or = 0.50); Carbon Dioxide 23 mmol/L (22-29); Chloride 109 mmol/L (96-108); Estimated Glomerular Filt Rate > 60; Glucose Random 88 mg/dL (60-115); Potassium 4.4 mmol/L (3.3-5.1); Sodium 140 mmol/L (135-145); Total Protein 6.7 g/dL (6.5-8.0)
[2022-04-27 11:59] LABS: Erythrocyte Sedimentation Rate 5 MM/HR (0-20)
== END 2022-04-27 08:13 | disposition home or self-care (01) ==
LOC: HO.10HDL 08:12
PROVIDERS: Visit Provider Nurse Practitioner Family
DX: M05.9 Rheumatoid arthritis with rheumatoid factor, unspecified (principal)
CPT/HCPCS: 36415; 80053; 85025; 85652; 86140

== ENCOUNTER → 2022-04-29 10:31 | Outpatient (BNVA) | payer MEDICAID, SELFPAY | PROVIDERS: PCP Family Medicine; Visit Provider Nurse Practitioner Family | DX: M05.9 Rheumatoid arthritis with rheumatoid factor, unspecified (principal); D75.839 Thrombocytosis, unspecified; E55.9 Vitamin D deficiency, unspecified | CPT/HCPCS: 99212 ==

== ENCOUNTER 2022-06-16 17:00 | Outpatient (RCR) | payer MEDICAID, SELFPAY | END 2022-07-08 14:51 | disposition home or self-care (01) | LOC: HO.PT 17:00 | PROVIDERS: PCP Family Medicine; Visit Provider Family Medicine | DX: M54.6 Pain in thoracic spine (principal); M54.2 Cervicalgia | CPT/HCPCS: 97110; 97161 ==

== ENCOUNTER → 2022-06-30 13:19 | Outpatient (BNVA) | payer MEDICAID, SELFPAY | PROVIDERS: PCP Family Medicine; Visit Provider Nurse Practitioner Family | DX: M05.9 Rheumatoid arthritis with rheumatoid factor, unspecified (principal) | CPT/HCPCS: 99212 ==

== ENCOUNTER 2022-08-24 08:10 | Outpatient (REF) | payer MEDICAID, SELFPAY ==
[2022-08-24 09:37] LABS: MANUAL DIFF FLAG NO
[2022-08-24 09:46] LABS: Basophils Percent Auto 0.5 % (0-2); Eosinophils Absolute Auto 0.1 X10*3/uL (0.0-0.4); Eosinophils Percent Auto 0.9 % (0-4); Hematocrit 40.9 % (37.0-47.0); Hemoglobin 12.9 g/dl (12.0-16.0); Imm Gran Abs Auto 0.01 X10*3/uL (0.00-0.03); Imm Gran Pct Auto 0.2 % (0.0-0.4); Lymphocytes Absolute Auto 3.1 X10*3/uL (1.2-4.9); Lymphocytes Percent Auto 53.9 % (20-40); Mean Corpuscular HGB Conc 31.5 g/dl (31.0-35.0); Mean Corpuscular Hemoglobin 27.4 pg (27.0-33.0); Mean Platelet Volume 9.9 fL (9.4-12.3); Monocytes Absolute Auto 0.3 X10*3/uL (0.1-1.2); Neutrophils Absolute Auto 2.3 x10*3/uL (2.0-8.3); Neutrophils Percent Auto 39.5 % (45-73); Platelet Count 403 X10*3/uL (160-400); Red Cell Distribution Width 13.6 % (11.0-16.0); White Blood Count 5.8 X10*3/uL (4.8-10.8)
[2022-08-24 09:56] LABS: Alanine Aminotransferase 12 U/L (0-31); Albumin Level 4.1 g/dL (3.5-5.0); Alkaline Phosphatase 70 U/L (39-117); Anion Gap 10 (12-20); Aspartate Amino Transferase 14 U/L (5-31); Bilirubin Total 0.4 mg/dL (0.0-1.0); Blood Urea Nitrogen 6 mg/dL (9-16); C Reactive Protein 0.25 mg/dL (< or = 0.50); Calcium 9.1 mg/dL (8.4-10.2); Carbon Dioxide 23 mmol/L (22-29); Chloride 109 mmol/L (96-108); Estimated Glomerular Filt Rate > 60; Glucose Random 96 mg/dL (60-115); Potassium 3.9 mmol/L (3.3-5.1); Sodium 138 mmol/L (135-145); Total Protein 6.9 g/dL (6.5-8.0)
[2022-08-24 10:31] LABS: Erythrocyte Sedimentation Rate 3 MM/HR (0-20)
== END 2022-08-24 08:11 | disposition home or self-care (01) ==
LOC: HO.10HDL 08:10
PROVIDERS: Visit Provider Nurse Practitioner Family
DX: M06.9 Rheumatoid arthritis, unspecified (principal); M25.531 Pain in right wrist; Z79.899 Other long term (current) drug therapy
CPT/HCPCS: 20605; 36415; 80053; 85025; 85652; 86140; 99212

== ENCOUNTER 2022-08-24 10:16 | Outpatient (AMB) | payer MEDICAID, SELFPAY ==
--- NOTE | 2022-08-24 10:22 | A.OFFVIS_ITS ---
Intake Vital Signs 08/24/22 10:22 08/24/22 10:27 Height 5 ft 5 ft 1 in Weight 173 lb 1.006 oz BMI 32.7 BP 122/72 Blood Pressure Location Lt brachial Position Sitting Respiration 16 Pulse 85 Pulse Source Pulse Oximeter Temp 98.4 F Temp Source Skin Pulse Oximetry (%) 98 Oxygen Delivery Method Room Air Intake Visit Reasons: rheumatoid arthritis Internet Programmer Required: No Accompanied by: Self / Same As Patient Allergies etanercept [From Enbrel] Allergy (Intermediate, Verified 08/24/22 10:32) rash Medication List - Last Reconciled 08/24/22 by Quintin Thomas MD ibuprofen 800 mg PO Q8H PRN upadacitinib ER (Rinvoq) 15 mg PO DAILY HPI HPI Comments History of Present Illness Details 26yoF presents for follow-up of seropositive rheumatoid arthritis (RF++ CCP+++). Last seen by Tata collins 06/2022. Patient has started Rinvoq 15 mg once daily about a month ago. She feels improvement in her overall joint pain. Continues however to have right wrist pain and limited range of motion. She admits to chronic pain in the right wrist, no other joint pain or swelling. [facility] Medical History Denial Seropositive rheumatoid arthritis Surgical History No history of previous surgery Family History Paternal Grandmother Skin cancer of nose Paternal Aunt Skin cancer of nose Breast CA Paternal Aunt Rheumatoid arthritis Social History Household Members: Children Household Members Other:: son Housing: Apartment Are you a primary caregivers non medical to a significant other at home: No Do you presently have visiting nurse or other home services: No Alcohol intake: current Patient Tobacco Use Status: Never used Tobacco e-Cigarette/Vaping Use: Currently Using service: No Current occupational status: employed Review of Systems [facility] [place] Reports arthralgias, Reports limited range of motion and Reports stiffness Physical Exam Vital Signs: Last Vital Signs Temp 98.4 F 08/24/22 10:27 Pulse 85 08/24/22 10:27 Resp 16 08/24/22 10:27 BP 122/72 08/24/22 10:27 Pulse Ox 98 08/24/22 10:27 Oxygen Delivery Method Room Air 08/24/22 10:27 BMI result Body Mass Index 32.7 Const General: cooperative, healthy appearing and comfortable Nutritional Appearance: obese Orientation/consciousness: patient oriented x3 Limitations: no limitations HEENT Head: Yes normocephalic and Yes atraumatic Mouth: moist mucous membranes Resp Effort & Inspection: normal respiratory effort and able to speak in complete sentences Auscultation: clear to auscultation bilaterally Cardio Rate: regular rate Rhythm: regular rhythm GI Inspection: No distended Palpation (GI): Soft to palpation and nontender Neuro General: patient oriented x3 Extrem Other: Right wrist tenderness and significantly limited flexion. No significant swelling. No active synovitis otherwise Office Procedures Joint Injection/Drain Joint Injection/Drain Details: Right wrist Prep: site was prepped using sterile technique and ethochloride spray was applied Injected: 20 mg of, Kenalog and other (0.2 mL of 1% lidocaine) Procedure: The patient tolerated the procedure well Coding Details: With the patient's consent the dorsum of right wrist was prepped with ChloraPrep and alcohol. Ethyl chloride spray was applied. The wrist joint space was injected with 20 mg of triamcinolone mixed with 0.2 mL of 1% lidocaine The patient tolerated the procedure with no immediate adverse effects. - Medium joint Procedure code (CPT) selection complete Assessment & Plan Assessment & Plan (1) Seropositive rheumatoid arthritis: Comment: ++RF+++CCP dx 02/2018 Cimzia: July 2019-November 2019- Ineffective Enbrel:December 2019- March 2020-injection site reaction small areas of erythema at the injection site (mild per patient report) Humira: April 2020- November 2020-ineffective active disease on exam. Orenica: November 2020- June 2021 -active disease on exam. Xeljanz: June 2021- November 2021- ineffective/active disease on exam. Methotrexate: 01/2022- self-stopped by patient June 2022 due to hair loss Rinvoq started 07/29 effective Code(s): M05.9 - Rheumatoid arthritis with rheumatoid factor, unspecified Plan: Seropositive rheumatoid arthritis (RF++ CCP+++). . Ultrasound of patient's right wrist from March 2020 showed synovitis, no bone erosion or tenosynovitis. Right wrist x-ray from 2019 showed some narrowing of the joint spaces. Repeat right wrist x-ray showed interval progression of the radiocarpal joint space narrowing. Left ankle x-ray from September 2021 was essentially unremarkable. Rinvoq started about a month ago and is effective. Patient however continues to have right wrist tenderness and limited range of motion. With patient's consent the right wrist was injected. I explained that the damage to the wrist is likely irreversible, and would likely be a long-term issue. Continue Rinvoq 15 mg daily Labs before next visit in 3 minutes Orders: Orders Comprehensive Met. Panel 3 Months M05.9 - Rheumatoid arthritis with rheumatoid factor, unspecified C Reactive Protein 3 Months M05.9 - Rheumatoid arthritis with rheumatoid factor, unspecified Complete Blood Count Auto Diff 3 Months M05.9 - Rheumatoid arthritis with rheumatoid factor, unspecified Erythrocyte Sedimentation Rate 3 Months M05.9 - Rheumatoid arthritis with rheumatoid factor, unspecified AMB Joint Injection/Aspiration Today M05.9 - Rheumatoid arthritis with rheumatoid factor, unspecified Coding Level of Care Code Est Pt Level 3 (54298) Diagnoses Seropositive rheumatoid arthritis M05.9 CPT Codes Coding - 10845 Medium joint: 69621 - Medium joint ([id number])
[2022-08-24 10:27] VITALS: BP 122/72; PULSE 85; RESP 16; TEMP 36.9; O2SAT 98; BMI 32.7
== END 2022-08-24 11:09 | disposition home or self-care (01) ==
PROVIDERS: PCP Family Medicine; Visit Provider Student in an Organized Health Care Education/Training Program
DX: M05.79 Rheumatoid arthritis with rheumatoid factor of multiple sites without organ or systems involvement (principal); M25.531 Pain in right wrist
CPT/HCPCS: 20605; 99213

== ENCOUNTER 2022-10-04 14:54 | Outpatient (REF) | payer MEDICAID, SELFPAY ==
[2022-10-07 21:59] LABS: HPV mRNA E6/E7 Not Detected (Not Detected)
== END 2022-10-04 14:55 | disposition home or self-care (01) ==
LOC: HO.HHCLNP 14:54
PROVIDERS: Visit Provider Advanced Practice Midwife
DX: Z01.419 Encounter for gynecological examination (general) (routine) without abnormal findings (principal)
CPT/HCPCS: 87624; 88142

== ENCOUNTER 2022-11-23 08:08 | Outpatient (REF) | payer MEDICAID, SELFPAY ==
[2022-11-23 10:50] LABS: MANUAL DIFF FLAG NO
[2022-11-23 10:57] LABS: Basophils Absolute Auto 0.1 X10*3/uL (0.0-0.2); Basophils Percent Auto 0.6 % (0-2); Eosinophils Absolute Auto 0.1 X10*3/uL (0.0-0.4); Eosinophils Percent Auto 1.4 % (0-4); Hematocrit 42.1 % (37.0-47.0); Imm Gran Abs Auto 0.02 X10*3/uL (0.00-0.03); Imm Gran Pct Auto 0.2 % (0.0-0.4); Lymphocytes Absolute Auto 2.6 X10*3/uL (1.2-4.9); Lymphocytes Percent Auto 32.2 % (20-40); Mean Corpuscular HGB Conc 33.3 g/dl (31.0-35.0); Mean Corpuscular Hemoglobin 28.3 pg (27.0-33.0); Mean Corpuscular Volume 85.1 fL (80.0-98.0); Mean Platelet Volume 9.3 fL (9.4-12.3); Monocytes Absolute Auto 0.5 X10*3/uL (0.1-1.2); Monocytes Percent Auto 6.5 % (2-11); Neutrophils Absolute Auto 4.7 x10*3/uL (2.0-8.3); Neutrophils Percent Auto 59.1 % (45-73); Platelet Count 395 X10*3/uL (160-400); Red Blood Count 4.95 X10*6/uL (4.20-5.50); Red Cell Distribution Width 12.9 % (11.0-16.0)
[2022-11-23 11:06] LABS: Alanine Aminotransferase 15 U/L (0-31); Alkaline Phosphatase 77 U/L (39-117); Anion Gap 13 (12-20); Aspartate Amino Transferase 14 U/L (5-31); Bilirubin Total 0.4 mg/dL (0.0-1.0); Blood Urea Nitrogen 11 mg/dL (9-16); C Reactive Protein 0.39 mg/dL (< or = 0.50); Calcium 9.5 mg/dL (8.4-10.2); Carbon Dioxide 23 mmol/L (22-29); Chloride 106 mmol/L (96-108); Estimated Glomerular Filt Rate > 60; Glucose Random 95 mg/dL (60-115); Potassium 3.7 mmol/L (3.3-5.1); Sodium 138 mmol/L (135-145); Total Protein 7.3 g/dL (6.5-8.0)
[2022-11-23 11:52] LABS: Erythrocyte Sedimentation Rate 7 MM/HR (0-20)
== END 2022-11-23 08:09 | disposition home or self-care (01) ==
LOC: HO.10HDL 08:08
PROVIDERS: Visit Provider Student in an Organized Health Care Education/Training Program
DX: M05.9 Rheumatoid arthritis with rheumatoid factor, unspecified (principal); Z71.85 Encounter for immunization safety counseling; Z79.899 Other long term (current) drug therapy
CPT/HCPCS: 36415; 80053; 85025; 85652; 86140; 99212

== ENCOUNTER 2022-11-23 09:55 | Outpatient (AMB) | payer MEDICAID, SELFPAY ==
[2022-11-23 10:04] VITALS: BP 116/72; PULSE 76; TEMP 36.5; O2SAT 96; BMI 32.4
--- NOTE | 2022-11-23 10:04 | A.OFFVIS_ITS ---
Intake Vital Signs 11/23/22 10:04 Height 5 ft 1 in Weight 171 lb 8.314 oz BMI 32.4 BP 116/72 Blood Pressure Location Rt brachial Position Sitting Pulse 76 Pulse Source Pulse Oximeter Temp 97.7 F Temp Source Skin Pulse Oximetry (%) 96 Intake Visit Reasons: RA Intake Note: Patient presents today to follow up on RA. 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 Doing well overall on Rinvoq 15 mg daily. States that right wrist injection the last visit provided some relief. She has no complaints today PFSH Medical History Denial Seropositive rheumatoid arthritis Surgical History No history of previous surgery Family History Paternal Grandmother Skin cancer of nose Paternal Aunt Skin cancer of nose Breast CA Paternal Aunt Rheumatoid arthritis Social History Household Members: Children Household Members Other:: son Housing: Apartment Are you a primary campground caretaker to a significant other at home: No Do you presently have visiting nurse or other home services: No Alcohol intake: current Patient Tobacco Use Status: Never used Tobacco e-Cigarette/Vaping Use: Currently Using service: No Current occupational status: employed Review of Systems [facility] [place] Denies arthralgias and Reports limited range of motion Physical Exam Vital Signs: Last Vital Signs Temp 97.7 F 11/23/22 10:04 Pulse 76 11/23/22 10:04 BP 116/72 11/23/22 10:04 Pulse Ox 96 11/23/22 10:04 BMI result Body Mass Index 32.4 Const General: cooperative, healthy appearing and comfortable Nutritional Appearance: obese Orientation/consciousness: patient oriented x3 Limitations: no limitations HEENT Head: Yes normocephalic and Yes atraumatic Mouth: moist mucous membranes Resp Effort & Inspection: normal respiratory effort and able to speak in complete sentences Auscultation: clear to auscultation bilaterally Cardio Rate: regular rate Rhythm: regular rhythm GI Inspection: No distended Palpation (GI): Soft to palpation and nontender Neuro General: patient oriented x3 Extrem Other: No right wrist tenderness or swelling today. Significantly limited right wrist flexion, and some pain with flexion and extension No active synovitis otherwise Assessment & Plan Assessment & Plan (1) Seropositive rheumatoid arthritis: Comment: ++RF+++CCP dx 02/2018 Cimzia: July 2019-November 2019- Ineffective Enbrel:December 2019- March 2020-injection site reaction small areas of erythema at the injection site (mild per patient report) Humira: April 2020- November 2020-ineffective active disease on exam. Orenica: November 2020- June 2021 -active disease on exam. Xeljanz: June 2021- November 2021- ineffective/active disease on exam. Methotrexate: 01/2022- self-stopped by patient June 2022 due to hair loss Rinvoq started 07/29 effective Code(s): M05.9 - Rheumatoid arthritis with rheumatoid factor, unspecified Plan: Seropositive rheumatoid arthritis (RF++ CCP+++). . Ultrasound of patient's right wrist from March 2020 showed synovitis, no bone erosion or tenosynovitis. Right wrist x-ray from 2019 showed some narrowing of the joint spaces. Repeat right wrist x-ray showed interval progression of the radiocarpal joint space narrowing. Left ankle x-ray from September 2021 was essentially unremarkable. Patient is in remission on Rinvoq 15 mg daily. Right wrist injection done 3 months ago was helpful Labs before next visit in 4 months (2) Immunization counseling: Code(s): Z71.85 - Encounter for immunization safety counseling Plan: Discussed ACR vaccination guidelines for adults with autoimmune rheumatic disease on immune suppression. Advised patient to get flu vaccine for this season and new COVID booster. I also explained that since she is on Rinvoq, she should get the Shingrix vaccines. Patient stated that she will think about it Plan I spent 26 minutes reviewing patient's chart, evaluating patient, ordering diagnostic workup, counseling patient and documenting in the chart Coding Level of Care Code Est Pt Level 4 (78973) Diagnoses Seropositive rheumatoid arthritis M05.9 Immunization counseling Z71.85
== END 2022-11-23 10:30 | disposition home or self-care (01) ==
PROVIDERS: PCP Family Medicine; Visit Provider Student in an Organized Health Care Education/Training Program
DX: M05.79 Rheumatoid arthritis with rheumatoid factor of multiple sites without organ or systems involvement (principal); Z71.85 Encounter for immunization safety counseling
CPT/HCPCS: 99213

== ENCOUNTER 2023-01-13 14:15 | Outpatient (AMB) | payer MEDICAID, SELFPAY ==
[2023-01-13 14:14] VITALS: BP 118/68; PULSE 88; RESP 15; TEMP 36.8; O2SAT 99; BMI 32.7
--- NOTE | 2023-01-13 14:14 | MHC.OFFVIS ---
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 Presents for evaluation of a cough. About a week ago 1 of her coworkers had COVID, she developed an upper respiratory tract illness with nasal congestion and cough for 3-4 days, no fever. Since then patient has had a dry cough that is occasionally productive of clear sputum, wheezing when she breathes in and intermittent shortness of breath. She has no known close family history of asthma. She does not recall ever having a similar episode Her RA symptoms are stable on Rinvoq PFS Medical History Denial Seropositive rheumatoid arthritis Surgical History No history of previous surgery Family History Paternal Grandmother Skin cancer of nose Paternal Aunt Skin cancer of nose Breast CA Paternal Aunt Rheumatoid arthritis Social History Household Members: Children Household Members Other:: son Housing: Apartment Are you a primary transitional care nurse to a significant other at home: No Do you presently have visiting nurse or other home services: No Alcohol intake: current Patient Tobacco Use Status: Never used Tobacco e-Cigarette/Vaping Use: Currently Using service: No Current occupational status: employed Review of Systems Const Denies fever(s) Card Reports dyspnea Resp Reports cough, Reports dyspnea and Reports wheezing Musc Denies arthralgias Aller/Immun Reports wheezing Physical Exam Vital Signs: Last Vital Signs Temp 98.2 F 01/13/23 14:14 Pulse 88 01/13/23 14:14 Resp 15 01/13/23 14:14 BP 118/68 01/13/23 14:14 Pulse Ox 99 01/13/23 14:14 Oxygen Delivery Method Room Air 01/13/23 14:14 BMI result Body Mass Index 32.7 Const General: cooperative, healthy appearing and comfortable Nutritional Appearance: obese Orientation/consciousness: patient oriented x3 Limitations: no limitations HEENT Head: Yes normocephalic and Yes atraumatic Mouth: moist mucous membranes Resp Effort & Inspection: normal respiratory effort and able to speak in complete sentences Auscultation: wheezes inspiratory wheezes and right upper Cardio Rate: regular rate Rhythm: regular rhythm Neuro General: patient oriented x3 Extrem Other: No right wrist tenderness or swelling today. Significantly limited right wrist flexion. No pain with flexion and extension today No active synovitis otherwise Assessment & Plan Assessment & Plan (1) Cough: Code(s): R05.9 - Cough, unspecified Qualifiers: Cough type: subacute Qualified Code(s): R05.2 - Subacute cough Plan: 27-year-old female with seropositive RA well controlled on Rinvoq presents for evaluation of a month long cough that developed after 1 of her coworkers had COVID infection. She had 3 days of nasal congestion, with no fever. Patient is wheezing on exam. Given her immunosuppressed state, I will like to check a chest x-ray to evaluate for pneumonia. Hold removed for 1 week, Start prednisone 40 mg daily and a Z-Gibran. If there is evidence of pneumonia on chest x-ray, will add cefpodoxime (2) Seropositive rheumatoid arthritis: Comment: ++RF+++CCP dx 02/2018 Cimzia: July 2019-November 2019- Ineffective Enbrel:December 2019- March 2020-injection site reaction small areas of erythema at the injection site (mild per patient report) Humira: April 2020- November 2020-ineffective active disease on exam. Orenica: November 2020- June 2021 -active disease on exam. Xeljanz: June 2021- November 2021- ineffective/active disease on exam. Methotrexate: 01/2022- self-stopped by patient June 2022 due to hair loss Rinvoq started 07/29 effective Code(s): M05.9 - Rheumatoid arthritis with rheumatoid factor, unspecified Plan: Seropositive rheumatoid arthritis (RF++ CCP+++). . Ultrasound of patient's right wrist from March 2020 showed synovitis, no bone erosion or tenosynovitis. Right wrist x-ray from 2019 showed some narrowing of the joint spaces. Repeat right wrist x-ray showed interval progression of the radiocarpal joint space narrowing. Left ankle x-ray from September 2021 was essentially unremarkable. Patient is in remission on Rinvoq 15 mg daily. As mentioned above. Rinvoq will be held for 1 week Plan I spent 26 minutes reviewing patient's chart, evaluating patient, ordering diagnostic workup, counseling patient and documenting in the chart Orders: Orders XR chest 2V Today R05.9 - Cough, unspecified Medications: New azithromycin For 250 mg dose pack: take 500 mg today (day 1), then 250 mg for 4 days (days 2-5) PO 6 tabs 0RF prednisone 20 mg PO BID 10 tabs 0RF Coding Level of Care Code Est Pt Level 4 (42145) Diagnoses Subacute cough R05.2 Cough type: subacute Seropositive rheumatoid arthritis M05.9
== END 2023-01-13 15:54 | disposition home or self-care (01) ==
PROVIDERS: PCP Family Medicine; Visit Provider Student in an Organized Health Care Education/Training Program
DX: M05.79 Rheumatoid arthritis with rheumatoid factor of multiple sites without organ or systems involvement (principal); R05.2 Subacute cough
CPT/HCPCS: 99214

== ENCOUNTER 2023-01-13 14:15 | Outpatient (REF) | payer MEDICAID, SELFPAY ==
--- NOTE | ~2023-01-13 | XR_ITS ---
EXAMINATION: XR CHEST CLINICAL INFORMATION: Cough. COMPARISON: None available. TECHNIQUE: 2 views of the chest were obtained. FINDINGS: No significant abnormality is noted involving the heart, lungs, mediastinum, bony thorax or soft tissues. XR/XR chest 2V IMPRESSION: Unremarkable chest examination.
== END 2023-01-13 14:16 | disposition home or self-care (01) ==
LOC: HO.XRAY 14:15
PROVIDERS: PCP Family Medicine; Visit Provider Student in an Organized Health Care Education/Training Program
DX: R05.2 Subacute cough (principal); M05.9 Rheumatoid arthritis with rheumatoid factor, unspecified
CPT/HCPCS: 71046; 99212

== ENCOUNTER 2023-03-07 09:12 | Outpatient (REF) | payer MEDICAID, SELFPAY ==
--- NOTE | ~2023-03-07 | FL_ITS ---
EXAMINATION: FL BARIUM SWALLOW CLINICAL INFORMATION: Globus sensation COMPARISON: None TECHNIQUE: Fluoroscopic air contrast upper GI examination was performed utilizing standard techniques with thin and thick barium and effervescent granules. Numerous spot images were obtained. FINDINGS: Lateral cine images of the oropharynx and hypopharynx demonstrate normal swallow mechanism with normal epiglottic inversion and soft palate elevation. No tracheal penetration, glottic or subglottic aspiration identified. No nasopharyngeal reflux present. Hypopharyngeal structures appear normal without evidence of mass or diverticulum. There was no significant cricopharyngeal achalasia. Dual and single contrast images of the esophagus demonstrate normal caliber, contour, and mucosal pattern. No evidence of stricture, mass, or ulcerations identified. Esophageal peristalsis was normal. Normal appearing GE junction. No evidence of hiatus hernia identified. No significant gastroesophageal reflux was seen during the course of the examination and on reflux views. FLUOROSCOPY TIME: 2 minutes 36 seconds Number of Spot Images: 4 Number of Cine: 6 DOSE AREA PRODUCT: 1453 uGy-m2 (microgray-meter squared) FL/FL barium swallow IMPRESSION: 1. Normal examination. This procedure was performed by Daryl Acosta PA-C, and supervised by Dr. Saunders
== END 2023-03-07 09:13 | disposition home or self-care (01) ==
LOC: HO.XRAY 09:12
PROVIDERS: PCP Family Medicine; Visit Provider Nurse Practitioner Primary Care
DX: R09.A2 Foreign body sensation, throat (principal)
CPT/HCPCS: 74220

== ENCOUNTER → 2023-03-07 09:37 | Outpatient (BNV) | payer MEDICAID, SELFPAY | PROVIDERS: PCP Family Medicine; Visit Provider Radiology Diagnostic Radiology | DX: R09.A2 Foreign body sensation, throat (principal) | CPT/HCPCS: 74221 ==

== ENCOUNTER 2023-03-29 13:40 | Outpatient (AMB) | payer MEDICAID, SELFPAY ==
[2023-03-29 13:57] VITALS: BP 108/70; TEMP 36.3; BMI 32.6
--- NOTE | 2023-03-29 13:57 | MHC.OFFVIS ---
Intake Vital Signs 03/29/23 13:57 Height 5 ft 1 in Weight 172 lb 6.424 oz BMI 32.6 BP 108/70 Blood Pressure Location Lt brachial Position Sitting Temp 97.3 F Temp Source Skin Intake Visit Reasons: RA Intake Note: Patient last seen 01/13/23 presents today for follow up and test results. C/o left elbow pain, that has gotten worse. 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 Her asthma episode 2 months ago self-resolved with prednisone and azithromycin. Patient stated that she has been holding the Rinvoq since last visit, worried about side effects. She stated that 4 weeks ago she started having left elbow pain. The pain became more severe over the last week. She called the rheumatology office and was prescribed prednisone taper by Elizabeth Yun. She also restarted the Rinvoq. He stated that the left elbow pain is persistent. She denies any other joint pain or swelling. [facility] Medical History Denial Seropositive rheumatoid arthritis Surgical History No history of previous surgery Family History Paternal Grandmother Skin cancer of nose Paternal Aunt Skin cancer of nose Breast CA Paternal Aunt Rheumatoid arthritis Mother No problems noted. Father No problems noted. Social History Household Members: Children Household Members Other:: son Housing: Apartment Are you a primary patient care to a significant other at home: No Do you presently have visiting nurse or other home services: No Alcohol intake: current Patient Tobacco Use Status: Current someday Tobacco user e-Cigarette/Vaping Use: Currently Using service: No Current occupational status: employed Review of Systems Card Denies dyspnea Resp Denies cough, Denies dyspnea and Denies wheezing Musc Reports arthralgias, Reports joint swelling and Reports stiffness Aller/Immun Denies wheezing Physical Exam Vital Signs: Last Vital Signs Temp 97.3 F 03/29/23 13:57 BP 108/70 03/29/23 13:57 BMI result Body Mass Index 32.6 Const General: cooperative, healthy appearing and comfortable Nutritional Appearance: obese Orientation/consciousness: patient oriented x3 Limitations: no limitations HEENT Head: Yes normocephalic and Yes atraumatic Mouth: moist mucous membranes Resp Effort & Inspection: normal respiratory effort and able to speak in complete sentences Cardio Rate: regular rate Rhythm: regular rhythm Neuro General: patient oriented x3 Extrem Other: No right wrist tenderness or swelling today. Significantly limited right wrist flexion. Right wrist pain with flexion Left elbow held in semi-flexed position Left elbow swelling, tenderness and warmth No active synovitis otherwise Office Procedures Joint Injection/Drain Joint Injection/Drain Details: Left elbow Prep: site was prepped using sterile technique and ethochloride spray was applied Injected: 40 mg of, Kenalog and other (0.5 mL of 1% lidocaine) Approach Used: other Procedure: The patient tolerated the procedure well Coding Details: With patient's consent, The area over the lateral aspect of left elbow was prepped with ChloraPrep. The skin was anesthetized with 2 cc of 1% lidocaine then 40 mg mixed with 0.5 cc of 1% lidocaine was injected into the elbow joint space. the patient tolerated the procedure well with no acute adverse events - Medium joint Procedure code (CPT) selection complete Assessment & Plan Assessment & Plan (1) Seropositive rheumatoid arthritis: Comment: ++RF+++CCP dx 02/2018 Cimzia: July 2019-November 2019- Ineffective Enbrel:December 2019- March 2020-injection site reaction small areas of erythema at the injection site (mild per patient report) Humira: April 2020- November 2020-ineffective active disease on exam. Orenica: November 2020- June 2021 -active disease on exam. Xeljanz: June 2021- November 2021- ineffective/active disease on exam. Methotrexate: 01/2022- self-stopped by patient June 2022 due to hair loss Rinvoq started 07/29 effective, self DC 01/28-04/01 due worry about side effects flare 04/01 restarted Code(s): M05.9 - Rheumatoid arthritis with rheumatoid factor, unspecified Plan: Seropositive rheumatoid arthritis (RF++ CCP+++). . Ultrasound of patient's right wrist from March 2020 showed synovitis, no bone erosion or tenosynovitis. Right wrist x-ray from 2019 showed some narrowing of the joint spaces. Repeat right wrist x-ray showed interval progression of the radiocarpal joint space narrowing. Left ankle x-ray from September 2021 was essentially unremarkable. Patient has self discontinued Rinvoq for the last 2 months worrying about side effects, now she has having a flare up mostly affecting the left elbow. With patient's consent, left elbow was injected with Kenalog today. Today we had a long discussion about patient's rheumatoid arthritis, the nature of the disease, its complications including musculoskeletal pain, stiffness, deformities, tendon ruptures, progressive arthritis in addition to other side effects such as increased cardiovascular risk. Restart Rinvoq 15 mg daily. Continue prednisone taper as prescribed by Elizabeth Follow-up in 1 week Plan I spent 26 minutes reviewing patient's chart, evaluating patient, counseling patient and documenting in the chart Orders: Orders AMB Joint Injection/Aspiration Today M05.9 - Rheumatoid arthritis with rheumatoid factor, unspecified Coding Level of Care Code Est Pt Level 4 (76013) Diagnoses Seropositive rheumatoid arthritis M05.9 CPT Codes Coding - 95237 Medium joint: 72674 - Medium joint ([id number])
== END 2023-03-29 14:56 | disposition home or self-care (01) ==
PROVIDERS: PCP Family Medicine; Visit Provider Student in an Organized Health Care Education/Training Program
DX: M05.79 Rheumatoid arthritis with rheumatoid factor of multiple sites without organ or systems involvement (principal); M25.522 Pain in left elbow
CPT/HCPCS: 20605; 99214

== ENCOUNTER → 2023-03-29 13:40 | Outpatient (BNVA) | payer MEDICAID, SELFPAY | PROVIDERS: PCP Family Medicine; Visit Provider Student in an Organized Health Care Education/Training Program | DX: M05.9 Rheumatoid arthritis with rheumatoid factor, unspecified (principal) | CPT/HCPCS: 20605; 99212 ==

== ENCOUNTER 2023-05-04 11:50 | Outpatient (AMB) | payer MEDICAID, SELFPAY ==
[2023-05-04 11:51] VITALS: BP 126/62; PULSE 109; O2SAT 96; BMI 31.5
--- NOTE | 2023-05-04 11:51 | MHC.OFFVIS ---
Intake Vital Signs 05/04/23 11:51 Height 5 ft 1 in Weight 166 lb 14.239 oz BMI 31.5 BP 126/62 Blood Pressure Location Rt brachial Position Sitting Pulse 109 H Pulse Source Pulse Oximeter Pulse Oximetry (%) 96 Oxygen Delivery Method Room Air Intake Visit Reasons: RA/LVM Intake Note: Patient last seen 03/29/23 presents today for follow up. Allergies etanercept [From Enbrel] Allergy (Intermediate, Verified 03/29/23 13:59) rash Medication List - Last Reconciled 05/04/23 by Quintin Thomas MD ibuprofen 800 mg PO Q8H PRN methylprednisolone (Medrol) 3 tabs daily for 1 week, 2 tabs daily for 2 weeks, 1 tab daily for 2 weeks Rinvoq ER (upadacitinib) 15 mg PO DAILY NS HPI HPI Comments History of Present Illness Details 27yoF with seropositive rheumatoid arthritis (RF++ CCP+++) returns for follow-up. She is s/p bilateral breast reduction procedure 2 weeks ago. She is happy with the result. She states that she ran out of her Rinvoq 2 weeks ago but never reached out to our office. Last visit she was having an RA flare and Medrol pack was prescribed which helped. Today she is having recurrent left elbow pain and swelling. Difficulty moving it. No other joint pain or swelling. No recent infections [facility] Medical History Denial Seropositive rheumatoid arthritis Surgical History No history of previous surgery Family History Paternal Grandmother Skin cancer of nose Paternal Aunt Skin cancer of nose Breast CA Paternal Aunt Rheumatoid arthritis Mother No problems noted. Father No problems noted. Social History Household Members: Children Household Members Other:: son Housing: Apartment Are you a primary home care associate to a significant other at home: No Do you presently have visiting nurse or other home services: No Alcohol intake: current Patient Tobacco Use Status: Current someday Tobacco user e-Cigarette/Vaping Use: Currently Using service: No Current occupational status: employed Review of Systems Card Denies dyspnea Resp Denies cough, Denies dyspnea and Denies wheezing Musc Reports arthralgias, Reports joint swelling, Reports limited range of motion and Reports stiffness Aller/Immun Denies wheezing Physical Exam Vital Signs: Last Vital Signs Pulse 109 H 05/04/23 11:51 BP 126/62 05/04/23 11:51 Pulse Ox 96 05/04/23 11:51 Oxygen Delivery Method Room Air 05/04/23 11:51 BMI result Body Mass Index 31.5 Const General: cooperative, healthy appearing and comfortable Nutritional Appearance: obese Orientation/consciousness: patient oriented x3 Limitations: no limitations HEENT Head: Yes normocephalic and Yes atraumatic Mouth: moist mucous membranes Resp Effort & Inspection: normal respiratory effort and able to speak in complete sentences Cardio Rate: regular rate Rhythm: regular rhythm Skin Other: Breast inspection was performed with ONDINA Fair present in the room Wound seems to be healing well with no signs of infection Neuro General: patient oriented x3 Extrem Other: No right wrist tenderness or swelling today. Significantly limited right wrist flexion. Right wrist pain with flexion Left elbow held in semi-flexed position Left elbow swelling, tenderness and warmth No active synovitis otherwise Assessment & Plan Assessment & Plan (1) Seropositive rheumatoid arthritis: Comment: ++RF+++CCP dx 02/2018 Cimzia: July 2019-November 2019- Ineffective Enbrel:December 2019- March 2020-injection site reaction small areas of erythema at the injection site (mild per patient report) Humira: April 2020- November 2020-ineffective active disease on exam. Orenica: November 2020- June 2021 -active disease on exam. Xeljanz: June 2021- November 2021- ineffective/active disease on exam. Methotrexate: 01/2022- self-stopped by patient June 2022 due to hair loss Rinvoq started 07/29 effective, self DC 01/28-04/01 due worry about side effects flare 04/01 restarted Code(s): M05.9 - Rheumatoid arthritis with rheumatoid factor, unspecified Plan: Seropositive rheumatoid arthritis (RF++ CCP+++). . Ultrasound of patient's right wrist from March 2020 showed synovitis, no bone erosion or tenosynovitis. Right wrist x-ray from 2019 showed some narrowing of the joint spaces. Repeat right wrist x-ray showed interval progression of the radiocarpal joint space narrowing. Left ankle x-ray from September 2021 was essentially unremarkable. Patient ran out of her Rinvoq 2 weeks ago and never reach out to our clinic for a refill. She continues to have synovitis affecting that left elbow. Again we had a long conversation rheumatoid arthritis and the importance of disease control and medication compliance. Advised patient to restart Rinvoq. Prescribed. Will prescribe Medrol taper. Labs before next visit in 2 months Plan I spent 26 minutes reviewing patient's chart, evaluating patient, counseling patient and documenting in the chart Orders: Orders C Reactive Protein 2 Months M05.9 - Rheumatoid arthritis with rheumatoid factor, unspecified Complete Blood Count Auto Diff 2 Months M05.9 - Rheumatoid arthritis with rheumatoid factor, unspecified Comprehensive Met. Panel 2 Months M05.9 - Rheumatoid arthritis with rheumatoid factor, unspecified Erythrocyte Sedimentation Rate 2 Months M05.9 - Rheumatoid arthritis with rheumatoid factor, unspecified Medications: New methylprednisolone (Medrol) 3 tabs daily for 1 week, 2 tabs daily for 2 weeks, 1 tab daily for 2 weeks 63 tabs 0RF Refilled Rinvoq ER (upadacitinib) 15 mg PO DAILY 30 tabs 3RF NS M05.9 - Rheumatoid arthritis with rheumatoid factor, unspecified Discontinued methylprednisolone (Medrol (Gibran)) Discontinued Reason: Doctor's Order PO PER PKG DIR for 6 days 21 ea 0RF Coding Level of Care Code Est Pt Level 4 (79324) Diagnoses Seropositive rheumatoid arthritis M05.9
== END 2023-05-04 12:09 | disposition home or self-care (01) ==
PROVIDERS: PCP Family Medicine; Referring Provider Family Medicine; Visit Provider Student in an Organized Health Care Education/Training Program
DX: M05.79 Rheumatoid arthritis with rheumatoid factor of multiple sites without organ or systems involvement (principal)
CPT/HCPCS: 99214

== ENCOUNTER → 2023-05-04 11:50 | Outpatient (BNVA) | payer MEDICAID, SELFPAY | PROVIDERS: PCP Family Medicine; Visit Provider Student in an Organized Health Care Education/Training Program | DX: M05.9 Rheumatoid arthritis with rheumatoid factor, unspecified (principal) | CPT/HCPCS: 99212 ==

== ENCOUNTER 2023-06-27 09:57 | Outpatient (AMB) | payer MEDICAID, SELFPAY ==
--- NOTE | 2023-06-27 10:03 | MHC.OFFVIS ---
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 Patient reports having ongoing pain for about a month. No history of injury. She expresses that she has a history of rheumatoid arthritis. She had a cortisone injection in her elbow in rheumatology and it didn't give her relief. No hx of O.T/PT. 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 Patient was last seen by Rheumatology on 05/04/2023 with a complaint of recurrent left elbow pain and edema. While in the office today the patient reports she has had ongoing pain for about a month, since 05/2023. She denies any known injury. She denies any treatment with occupational therapy. Patient had a cortisone injection in the left elbow on 03/29/2023. She reports this did not give her relief. Patient is currently followed by Rheumatology and is currently being treated for seropositive rheumatoid arthritis. [facility] Medical History Denial Seropositive rheumatoid arthritis Surgical History No history of previous surgery Family History Paternal Grandmother Skin cancer of nose Paternal Aunt Skin cancer of nose Breast CA Paternal Aunt Rheumatoid arthritis Mother No problems noted. Father No problems noted. Social History Household Members: Children Household Members Other:: son Housing: Apartment Are you a primary pet care technician to a significant other at home: No Do you presently have visiting nurse or other home services: No Alcohol intake: current Patient Tobacco Use Status: Current someday Tobacco user e-Cigarette/Vaping Use: Currently Using service: No Current occupational status: employed Review of Systems Const All systems reviewed & are unremarkable except as noted in HPI and below Physical Exam Vital Signs: BMI result Body Mass Index 31.4 Const General: cooperative and no acute distress Orientation/consciousness: patient oriented x3 Resp Effort & Inspection: normal respiratory effort and able to speak in complete sentences Cardio Peripheral pulses: Peripheral pulses 2+ throughout Skin General skin exam: no rashes or lesions noted Neuro General: patient oriented x3 Extrem Other: Left elbow: Normal to inspection. No ecchymosis, erythema, or edema. Slight limitation in ROM due to pain with flexion and extension. Able to pronate and supinate to end range with pain. No varus or valgus laxity. NVI. Assessment & Plan Assessment & Plan (1) Rheumatoid arthritis involving left elbow: Code(s): M06.9 - Rheumatoid arthritis, unspecified Category: Medical Plan Ms. Frazier is a 27-year-old right hand dominant female who presents in the office today, as a new patient, for an evaluation of left elbow pain and edema. Patient was last seen by Rheumatology on 05/04/2023 with a complaint of recurrent left elbow pain and edema. While in the office today the patient reports she has had ongoing pain for about a month, since 05/2023. She denies any known injury. She denies any treatment with occupational therapy. Patient had a cortisone injection in the left elbow on 03/29/2023. She reports this did not give her relief. Patient is currently followed by Rheumatology and is currently being treated for seropositive rheumatoid arthritis. A prescription for Diclofenac 75 mg PO BID was sent to the pharmacy, as well as a prescription for a topical pain cream. Follow up will be PRN, or sooner if needed. X-rays of the left elbow which were obtained while in the office today and were reviewed by me, Lesli Middleton PA-C, revealed rheumatoid arthritic joint destruction noted. Orders: Orders XR elbow LT min 3V Today M25.529 - Pain in unspecified elbow Medications: New diclofenac sodium 75 mg PO BID PRN 60 tabs 0RF pain 30 days Patient Instructions: Scribed by Mercedes Peñaloza medical office technologist, for Lesli Middleton PA-C on 06/27/2023 at 9:59 am, EST. Coding Level of Care Code Est Pt Level 3 (45157) Diagnoses Rheumatoid arthritis involving left elbow M06.9
[2023-06-27 10:08] VITALS: BMI 31.4
== END 2023-06-27 13:38 | disposition home or self-care (01) ==
PROVIDERS: PCP Family Medicine; Visit Provider Physician Assistant
DX: M06.9 Rheumatoid arthritis, unspecified (principal)
CPT/HCPCS: 99204

== ENCOUNTER 2023-06-27 09:57 | Outpatient (REF) | payer MEDICAID, SELFPAY ==
--- NOTE | ~2023-06-27 | XR_ITS ---
EXAMINATION: XR ELBOW, LEFT CLINICAL INFORMATION: Pain in unspecified elbow. COMPARISON: None available. TECHNIQUE: AP, lateral, and oblique views of the left elbow. FINDINGS: Alignment maintained. Moderate degenerative changes with hypertrophic change involving the left elbow. Elbow joint effusion. Possible cortical step-off along the radial aspect of the radial head could be related to hypertrophic/degenerative process versus prior trauma. XR/XR elbow LT min 3V IMPRESSION: Moderate degenerative changes with hypertrophic change involving the left elbow. Elbow joint effusion. Possible cortical step-off along the radial aspect of the radial head could be related to hypertrophic/degenerative process versus prior trauma. Additional imaging with CT scan or MRI recommended for further evaluation. This study was presented Monday, July 10, 2023 for interpretation. PSA staff will provide results to referring provider at this time.
== END 2023-06-27 09:58 | disposition home or self-care (01) ==
LOC: HO.HOSX 09:57
PROVIDERS: PCP Family Medicine; Visit Provider Physician Assistant
DX: M25.522 Pain in left elbow (principal); M06.9 Rheumatoid arthritis, unspecified
CPT/HCPCS: 73080; 99212

== ENCOUNTER → 2023-07-04 13:44 | Outpatient (RCR) | payer MEDICAID, SELFPAY ==
--- NOTE | 2022-05-04 12:10 | MHC.OT.EP ---
[address] [phone] Occupational Therapy Plan of Care Patient Name: Brianna Frazier Date of Evaluation: 05/04/22 Diagnosis: Rheumatoid Arthritis Pain in right wrist Pain Location: 8 right wrist Pain Score: 8 Pain Scale Used: Numeric (0 - 10) Aggravating Factors: Wrist flexion and extension Alleviating Factors: Heat Assessment: Pt is a 26 yo female with a diagnosis of RA with symptoms beginning ~ 4 years ago. She report right wrist pain worsening over the past several months. 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 Today she presents with right wrist pain, wrist contracture and low hand strength due to pain. She has limited knowledge of this diagnosis and self management skills. Pt with benefit from OT to improve right wrist pain ,ROM, strength and function. Frequency and Duration: The patient will be seen 2x wk x 5 wks Short Term Goals: Pt with demo awareness of activity modifications and adapted devices for joint protection with daily activities Pt with demo indep with upper body AROM of non inflamed joints Pt will begin aerobic conditioning program Right wrist flexion to > 15 deg Tolerate isometric wrist and hand strengthening at 20% maximum tension Customer Service Coordinator Goals: Demonstrate awareness of RA self management components Right wrist flexion increase to > 30 deg Right mechanical operator to > 40 lb Quick DASH score to < 30 pts with activity modifications as needed Treatment Plan: Therapeutic Exercise Therapeutic Activity Home Exercise Program Splinting Patient Education ADL Training MHP Electronically Signed By: Luana Dow OT CHT CLT Please Sign and return to therapist. Thank you once again for your referral.
== END | disposition home or self-care (01) ==
LOC: HO.OT 05-04 08:49
PROVIDERS: PCP Family Medicine; Visit Provider Nurse Practitioner Family
DX: M05.9 Rheumatoid arthritis with rheumatoid factor, unspecified (principal); M25.531 Pain in right wrist
CPT/HCPCS: 29125; 97166; 97760

== ENCOUNTER 2023-07-10 10:36 | Outpatient (AMB) | payer MEDICAID, SELFPAY ==
[2023-07-10 11:00] VITALS: BP 112/68; PULSE 64; BMI 31.4
--- NOTE | 2023-07-10 11:00 | A.OFFVIS_ITS ---
Vital Signs 07/10/23 11:00 Height 5 ft 1 in Weight 166 lb BMI 31.4 BP 112/68 Blood Pressure Location Rt brachial Position Sitting Pulse 64 Pulse Source Palpation Intake Visit Reasons: RA Intake Note: Patient last seen 05/04/23 presents today for follow up and test results. Patient did not get labs done. Allergies etanercept [From Enbrel] Allergy (Intermediate, Verified 07/10/23 11:00) rash Medication List - Last Reconciled 07/10/23 by Quintin Thomas MD diclofenac sodium 75 mg PO BID PRN 30 days Rinvoq ER (upadacitinib) 15 mg PO DAILY NS sulfasalazine give with food (meal/snack) Take 1 tab twice daily for 1 week, 2 tabs with breakfast, 1 tab with dinner for 1 week then 2 tabs Twice daily HPI Comments Details: 27yoF with seropositive rheumatoid arthritis (RF++ CCP+++) returns for follow- up. She remains on Rinvoq 15 mg p.o. daily. Sulfasalazine started approximately 2 weeks ago. She is currently taking 2 tabs with breakfast and 1 tab with dinner. No side effects reported. Also taking diclofenac 75 mg Twice daily. She was evaluated by Orthopedics and prescribed diclofenac. He continues to feel about the same with some mild improvement in the pain of her left elbow. [facility] Medical History Denial Seropositive rheumatoid arthritis Surgical History Hx of breast reduction, elective Family History Paternal Grandmother Skin cancer of nose Paternal Aunt Skin cancer of nose Breast CA Paternal Aunt Rheumatoid arthritis Mother No problems noted. Father No problems noted. Social History Household Members: Children Household Members Other:: son Housing: Apartment Are you a primary hearing care practitioner to a significant other at home: No Do you presently have visiting nurse or other home services: No Alcohol intake: current Patient Tobacco Use Status: Current someday Tobacco user e-Cigarette/Vaping Use: Currently Using service: No Current occupational status: employed Review of Systems [facility] Reports arthralgias, Reports joint swelling, Reports limited range of motion and Reports stiffness Physical Exam Vital Signs: Last Vital Signs Pulse 64 07/10/23 11:00 BP 112/68 07/10/23 11:00 BMI result Body Mass Index 31.4 Const General: cooperative, healthy appearing and comfortable Nutritional Appearance: obese Orientation/consciousness: patient oriented x3 Limitations: no limitations HEENT Head: Yes normocephalic and Yes atraumatic Mouth: moist mucous membranes Resp Effort & Inspection: normal respiratory effort and able to speak in complete sentences Cardio Rate: regular rate Rhythm: regular rhythm Neuro General: patient oriented x3 Extrem Other: No right wrist tenderness or swelling today. Significantly limited right wrist flexion. Right wrist pain with flexion Left elbow swelling, tenderness and pain with range of motion Limited range of motion of left elbow but patient can almost fully extend her left elbow today No active synovitis otherwise Assessment & Plan Assessment & Plan (1) Seropositive rheumatoid arthritis: Comment: ++RF+++CCP dx 02/2018 Cimzia: July 2019-November 2019- Ineffective Enbrel:December 2019- March 2020-injection site reaction small areas of erythema at the injection site (mild per patient report) Humira: April 2020- November 2020-ineffective active disease on exam. Orenica: November 2020- June 2021 -active disease on exam. Xeljanz: June 2021- November 2021- ineffective/active disease on exam. Methotrexate: 01/2022- self-stopped by patient June 2022 due to hair loss Rinvoq started 07/29 effective, self DC 01/28-04/01 due worry about side effects flare 04/01 restarted SSZ added 06/2023 Code(s): M05.9 - Rheumatoid arthritis with rheumatoid factor, unspecified Category: Medical Plan: Seropositive rheumatoid arthritis (RF++ CCP+++). . Ultrasound of patient's right wrist from March 2020 showed synovitis, no bone erosion or tenosynovitis. Right wrist x-ray from 2019 showed some narrowing of the joint spaces. Repeat right wrist x-ray showed interval progression of the radiocarpal joint space narrowing. Patient is on Rinvoq 15 mg p.o. daily and sulfasalazine 1000 mg in the morning and 500 mg at night started approximately 2 weeks ago. No side effects report ed. Left elbow synovitis slowly improving. Advised patient to increase her sulfasalazine to 1000 mg Twice daily starting next week. Continue with Rinvoq. Continue with diclofenac 75 mg Twice daily. Patient gained significant weight with steroids. Labs today and before next visit in 2 months (2) High risk medication use: Code(s): Z79.899 - Other prison (current) drug therapy Category: Medical Plan: Patient on Rinvoq and sulfasalazine. Monitor safety labs Plan I spent 26 minutes reviewing patient's chart, evaluating patient, ordering diagnostic workup, counseling patient and documenting in the chart Orders: Orders Comprehensive Met. Panel 2 Months M05.9 - Rheumatoid arthritis with rheumatoid factor, unspecified, Z79.899 - Other prison (current) drug therapy Complete Blood Count Auto Diff 2 Months M05.9 - Rheumatoid arthritis with rheumatoid factor, unspecified, Z79.899 - Other intermediate frame tender (current) drug therapy C Reactive Protein 2 Months M05.9 - Rheumatoid arthritis with rheumatoid factor, unspecified, Z79.899 - Other prison (current) drug therapy Erythrocyte Sedimentation Rate 2 Months M05.9 - Rheumatoid arthritis with rheumatoid factor, unspecified, Z79.899 - Other prison (current) drug therapy Coding Level of Care Code Est Pt Level 4 (38314) Diagnoses Seropositive rheumatoid arthritis M05.9 High risk medication use Z79.899
== END 2023-07-10 11:50 | disposition home or self-care (01) ==
LOC: HO.RHE 10:36
PROVIDERS: PCP Family Medicine; Referring Provider Family Medicine; Visit Provider Student in an Organized Health Care Education/Training Program
DX: M05.79 Rheumatoid arthritis with rheumatoid factor of multiple sites without organ or systems involvement (principal); Z79.899 Other long term (current) drug therapy
CPT/HCPCS: 99214

== ENCOUNTER → 2023-07-10 10:36 | Outpatient (BNVA) | payer MEDICAID, SELFPAY | PROVIDERS: PCP Family Medicine; Visit Provider Student in an Organized Health Care Education/Training Program | DX: M05.9 Rheumatoid arthritis with rheumatoid factor, unspecified (principal); Z79.899 Other long term (current) drug therapy | CPT/HCPCS: 99212 ==

== ENCOUNTER 2023-08-25 11:27 | Outpatient (REF) | payer MEDICAID, SELFPAY ==
[2023-08-27 21:43] LABS: TS Negative Control Passed; TS Panel A 0; TS Panel B 0; TS Positive Control Passed; TSpotTB Negative (Negative)
== END 2023-08-25 11:28 | disposition home or self-care (01) ==
LOC: HO.HHCL 11:27
PROVIDERS: Visit Provider Family Medicine
DX: Z11.1 Encounter for screening for respiratory tuberculosis (principal)
CPT/HCPCS: 36415; 86481

== ENCOUNTER 2023-09-20 16:50 | Outpatient (REF) | payer MEDICAID, SELFPAY ==
[2023-09-20 17:03] LABS: MANUAL DIFF FLAG NO
[2023-09-20 17:12] LABS: Basophils Percent Auto 0.3 % (0-2); Eosinophils Percent Auto 0.4 % (0-4); Hematocrit 40.5 % (37.0-47.0); Hemoglobin 13.4 g/dl (12.0-16.0); Imm Gran Abs Auto 0.05 X10*3/uL (0.00-0.03); Imm Gran Pct Auto 0.5 % (0.0-0.4); Lymphocytes Absolute Auto 3.7 X10*3/uL (1.2-4.9); Lymphocytes Percent Auto 36.6 % (20-40); Mean Corpuscular HGB Conc 33.1 g/dl (31.0-35.0); Mean Corpuscular Hemoglobin 29.7 pg (27.0-33.0); Mean Corpuscular Volume 89.8 fL (80.0-98.0); Monocytes Absolute Auto 0.7 X10*3/uL (0.1-1.2); Monocytes Percent Auto 6.9 % (2-11); Neutrophils Absolute Auto 5.5 x10*3/uL (2.0-8.3); Neutrophils Percent Auto 55.3 % (45-73); Platelet Count 429 X10*3/uL (160-400); Red Blood Count 4.51 X10*6/uL (4.20-5.50); Red Cell Distribution Width 13.3 % (11.0-16.0)
[2023-09-20 17:40] LABS: Alanine Aminotransferase 19 U/L (0-31); Albumin Level 4.6 g/dL (3.5-5.0); Alkaline Phosphatase 73 U/L (39-117); Anion Gap 10 (12-20); Aspartate Amino Transferase 21 U/L (5-31); Bilirubin Total 0.3 mg/dL (0.0-1.0); Blood Urea Nitrogen 7 mg/dL (9-16); C Reactive Protein 0.28 mg/dL (< or = 0.50); Calcium 9.6 mg/dL (8.4-10.2); Carbon Dioxide 26 mmol/L (22-29); Chloride 106 mmol/L (96-108); Estimated Glomerular Filt Rate > 60; Glucose Random 99 mg/dL (60-115); Potassium 4.4 mmol/L (3.3-5.1); Sodium 138 mmol/L (135-145)
[2023-09-20 18:07] LABS: Erythrocyte Sedimentation Rate 12 MM/HR (0-20)
== END 2023-09-20 16:51 | disposition home or self-care (01) ==
LOC: HO.LAB 16:50
PROVIDERS: PCP Family Medicine; Visit Provider Student in an Organized Health Care Education/Training Program
DX: M05.9 Rheumatoid arthritis with rheumatoid factor, unspecified (principal); Z79.899 Other long term (current) drug therapy
CPT/HCPCS: 36415; 80053; 85025; 85652; 86140

== ENCOUNTER 2023-10-16 17:55 | Outpatient (REF) | payer MEDICAID, SELFPAY | END 2023-10-16 17:56 | disposition home or self-care (01) | LOC: HO.HHCLNP 17:55 | PROVIDERS: Visit Provider Advanced Practice Midwife | DX: Z12.4 Encounter for screening for malignant neoplasm of cervix (principal) | CPT/HCPCS: 36415; 88175 ==

== ENCOUNTER 2023-11-02 15:03 | Outpatient (AMB) | payer MEDICAID, SELFPAY ==
--- NOTE | 2023-11-02 15:07 | A.OFFVIS_ITS ---
Vital Signs 11/02/23 15:09 Height 5 ft 1 in Weight 162 lb 14.746 oz BMI 30.8 BP 120/80 Blood Pressure Location Rt brachial Position Sitting Pulse 64 Pulse Source Pulse Oximeter Pulse Oximetry (%) 96 Oxygen Delivery Method Room Air Intake Visit Reasons: RA Intake Note: Patient presents for RA. Allergies etanercept [From Enbrel] Allergy (Intermediate, Verified 11/02/23 15:10) rash Medication List - Last Reconciled 11/02/23 by Quintin Thomas MD diclofenac sodium 75 mg PO BID PRN 30 days Rinvoq ER (upadacitinib) 15 mg PO DAILY NS sulfasalazine 1 g (2 x 500 mg) PO BID HPI Comments Details: 27yoF with seropositive rheumatoid arthritis (RF++ CCP+++) returns for follow- up. She is on Rinvoq 15 mg p.o. daily and sulfasalazine 1000 mg Twice daily. She states that she is doing much better overall. Does not take any NSAIDs. [facility] Medical History Denial Seropositive rheumatoid arthritis Surgical History Hx of breast reduction, elective Family History Paternal Grandmother Skin cancer of nose Paternal Aunt Skin cancer of nose Breast CA Paternal Aunt Rheumatoid arthritis Mother No problems noted. Father No problems noted. Social History Household Members: Children Household Members Other:: son Housing: Apartment Are you a primary director career to a significant other at home: No Do you presently have visiting nurse or other home services: No Alcohol intake: current Patient Tobacco Use Status: Current someday Tobacco user e-Cigarette/Vaping Use: Currently Using service: No Current occupational status: employed Female Reproductive History Menstrual Total pregnancies: 1 Review of Systems Musc Denies arthralgias, Denies joint swelling and Denies stiffness Physical Exam Vital Signs: Last Vital Signs Pulse 64 11/02/23 15:09 BP 120/80 11/02/23 15:09 Pulse Ox 96 11/02/23 15:09 Oxygen Delivery Method Room Air 11/02/23 15:09 BMI result Body Mass Index 30.8 Const General: cooperative, healthy appearing and comfortable Nutritional Appearance: obese Orientation/consciousness: patient oriented x3 Limitations: no limitations HEENT Head: Yes normocephalic and Yes atraumatic Mouth: moist mucous membranes Resp Effort & Inspection: normal respiratory effort and able to speak in complete sentences Cardio Rate: regular rate Rhythm: regular rhythm Neuro General: patient oriented x3 Extrem Other: No right wrist tenderness or swelling today. Significantly limited right wrist flexion. Right wrist pain with flexion ( chronic) Mild left elbow pain with full extension Very subtle contracture of left elbow No active synovitis otherwise Assessment & Plan Assessment & Plan (1) Seropositive rheumatoid arthritis: Comment: ++RF+++CCP dx 02/2018 Cimzia: July 2019-November 2019- Ineffective Enbrel:December 2019- March 2020-injection site reaction small areas of erythema at the injection site (mild per patient report) Humira: April 2020- November 2020-ineffective active disease on exam. Orenica: November 2020- June 2021 -active disease on exam. Xeljanz: June 2021- November 2021- ineffective/active disease on exam. Methotrexate: 01/2022- self-stopped by patient June 2022 due to hair loss Rinvoq started 07/29 effective, self DC 01/28-04/01 due worry about side effects flare 04/01 restarted SSZ added 06/2023 Code(s): M05.9 - Rheumatoid arthritis with rheumatoid factor, unspecified Category: Medical Plan: This is a 27-year-old female with seropositive RA who presents for follow-up. She is on Rinvoq 15 mg p.o. daily and sulfasalazine 1000 mg Twice daily. Doing much better with no active synovitis. She has developed a subtle: Traction of her left elbow from her most recent flare-up a few months ago when she took herself off of Rinvoq. I had a long conversation today regarding her rheumatoid arthritis and the importance of compliance with medication Continue with Rinvoq 15 mg p.o. daily Continue sulfasalazine 1000 mg in the morning and reduce to 500 mg at night Patient is of childbearing age, she is sexually active without contraception. Advised patient that she should have a reliable method of contraception as she can get and we do not have adequate safety data for Rinvoq with Follow-up with OBGYN Labs before next visit in 3 months (2) High risk medication use: Code(s): Z79.899 - Other terminologist (current) drug therapy Category: Medical Plan: Patient on Rinvoq and sulfasalazine. Monitor safety labs Plan I spent 26 minutes reviewing patient's chart, evaluating patient, ordering diagnostic workup, counseling patient and documenting in the chart Orders: Orders Complete Blood Count Auto Diff 3 Months M05.9 - Rheumatoid arthritis with rheumatoid factor, unspecified, Z79.899 - Other half-way (current) drug therapy Comprehensive Met. Panel 3 Months M05.9 - Rheumatoid arthritis with rheumatoid factor, unspecified, Z79.899 - Other terminologist (current) drug therapy C Reactive Protein 3 Months M05.9 - Rheumatoid arthritis with rheumatoid factor, unspecified, Z79.899 - Other terminologist (current) drug therapy Erythrocyte Sedimentation Rate 3 Months M05.9 - Rheumatoid arthritis with rheumatoid factor, unspecified, Z79.899 - Other half-way (current) drug therapy Coding Level of Care Code Est Pt Level 4 (12790) Complex EM visit Add On G2211 Diagnoses Seropositive rheumatoid arthritis M05.9 High risk medication use Z79.899
[2023-11-02 15:09] VITALS: BP 120/80; PULSE 64; O2SAT 96; BMI 30.8
== END 2023-11-02 15:39 | disposition home or self-care (01) ==
PROVIDERS: PCP Family Medicine; Referring Provider Family Medicine; Visit Provider Student in an Organized Health Care Education/Training Program
DX: M05.79 Rheumatoid arthritis with rheumatoid factor of multiple sites without organ or systems involvement (principal); Z79.899 Other long term (current) drug therapy
CPT/HCPCS: 99214

== ENCOUNTER → 2023-11-02 15:03 | Outpatient (BNVA) | payer MEDICAID, SELFPAY | PROVIDERS: PCP Family Medicine; Visit Provider Student in an Organized Health Care Education/Training Program | DX: M05.9 Rheumatoid arthritis with rheumatoid factor, unspecified (principal); Z79.899 Other long term (current) drug therapy | CPT/HCPCS: 99212 ==

== ENCOUNTER 2024-02-14 15:18 | Outpatient (REF) | payer MEDICAID, SELFPAY ==
[2024-02-14 15:31] LABS: MANUAL DIFF FLAG NO
[2024-02-14 15:41] LABS: Basophils Percent Auto 0.5 % (0-2); Eosinophils Absolute Auto 0.1 X10*3/uL (0.0-0.4); Eosinophils Percent Auto 0.7 % (0-4); Hematocrit 38.7 % (37.0-47.0); Imm Gran Abs Auto 0.04 X10*3/uL (0.00-0.03); Imm Gran Pct Auto 0.5 % (0.0-0.4); Lymphocytes Absolute Auto 2.8 X10*3/uL (1.2-4.9); Lymphocytes Percent Auto 32.9 % (20-40); Mean Corpuscular HGB Conc 33.6 g/dl (31.0-35.0); Mean Corpuscular Volume 92.4 fL (80.0-98.0); Mean Platelet Volume 9.1 fL (9.4-12.3); Monocytes Absolute Auto 0.5 X10*3/uL (0.1-1.2); Monocytes Percent Auto 5.8 % (2-11); Neutrophils Absolute Auto 5.1 x10*3/uL (2.0-8.3); Neutrophils Percent Auto 59.6 % (45-73); Platelet Count 409 X10*3/uL (160-400); Red Blood Count 4.19 X10*6/uL (4.20-5.50); Red Cell Distribution Width 12.4 % (11.0-16.0); White Blood Count 8.5 X10*3/uL (4.8-10.8)
[2024-02-14 16:09] LABS: Alanine Aminotransferase 13 U/L (0-31); Albumin Level 4.5 g/dL (3.5-5.0); Anion Gap 10 (12-20); Aspartate Amino Transferase 18 U/L (5-31); Bilirubin Total 0.3 mg/dL (0.0-1.0); Blood Urea Nitrogen 10 mg/dL (9-16); C Reactive Protein < 0.10 mg/dL (< or = 0.50); Calcium 9.2 mg/dL (8.4-10.2); Carbon Dioxide 25 mmol/L (22-29); Chloride 107 mmol/L (96-108); Estimated Glomerular Filt Rate > 60; Glucose Random 112 mg/dL (60-115); Potassium 3.9 mmol/L (3.3-5.1); Sodium 138 mmol/L (135-145); Total Protein 7.3 g/dL (6.5-8.0)
[2024-02-14 16:27] LABS: Erythrocyte Sedimentation Rate 4 MM/HR (0-20)
[2024-02-14 16:29] LABS: Alkaline Phosphatase 60 U/L (39-117)
== END 2024-02-14 15:19 | disposition home or self-care (01) ==
LOC: HO.LAB 15:18
PROVIDERS: PCP Family Medicine; Visit Provider Student in an Organized Health Care Education/Training Program
DX: M05.9 Rheumatoid arthritis with rheumatoid factor, unspecified (principal); Z79.899 Other long term (current) drug therapy; Z11.59 Encounter for screening for other viral diseases
CPT/HCPCS: 36415; 80053; 85025; 85652; 86140; 99212

== ENCOUNTER 2024-02-14 15:33 | Outpatient (AMB) | payer MEDICAID, SELFPAY ==
--- NOTE | 2024-02-14 15:37 | MHC.OFFVIS ---
Vital Signs 02/14/24 15:41 Height 5 ft 1 in Weight 158 lb 15.253 oz BMI 30.0 BP 120/82 Blood Pressure Location Rt brachial Position Sitting Pulse 77 Pulse Source Pulse Oximeter Pulse Oximetry (%) 97 Oxygen Delivery Method Room Air Intake Visit Reasons: RA Intake Note: Patient presents for RA. Allergies etanercept [From Enbrel] Allergy (Intermediate, Verified 02/14/24 15:41) rash Medication List - Last Reconciled 02/14/24 by Quintin Thomas MD diclofenac sodium 75 mg PO BID PRN 30 days sulfasalazine 0.5 grams PO TID upadacitinib ER (Rinvoq) 15 mg PO DAILY HPI Comments Details: 28yoF with seropositive rheumatoid arthritis (RF++ CCP+++) returns for follow-up. She is on Rinvoq 15 mg p.o. daily and sulfasalazine 1000 mg in the morning and 500 mg at night. She states that she is doing very well overall. She has noticed some burning in her right wrist, she notices yesterday. She denies any change in color of her fingertips in the cold. She denies any radiating pain down her fingers. Denies any tingling or numbness of her hands at night. Does not take any NSAIDs. [facility] Medical History Denial Seropositive rheumatoid arthritis Surgical History Hx of breast reduction, elective Family History Paternal Grandmother Skin cancer of nose Paternal Aunt Skin cancer of nose Breast CA Paternal Aunt Rheumatoid arthritis Mother No problems noted. Father No problems noted. Social History Household Members: Children Household Members Other:: son Housing: Apartment Are you a primary family day care provider to a significant other at home: No Do you presently have visiting nurse or other home services: No Alcohol intake: current Patient Tobacco Use Status: Current someday Tobacco user e-Cigarette/Vaping Use: Currently Using service: No Current occupational status: employed Female Reproductive History Menstrual Total pregnancies: 1 Review of Systems Musc Denies arthralgias, Denies joint swelling and Denies stiffness Physical Exam Vital Signs: Last Vital Signs Pulse 77 02/14/24 15:41 BP 120/82 02/14/24 15:41 Pulse Ox 97 02/14/24 15:41 Oxygen Delivery Method Room Air 02/14/24 15:41 BMI result Body Mass Index 30.0 Const General: cooperative, healthy appearing and comfortable Nutritional Appearance: obese Orientation/consciousness: patient oriented x3 Limitations: no limitations HEENT Head: Yes normocephalic and Yes atraumatic Mouth: moist mucous membranes Resp Effort & Inspection: normal respiratory effort and able to speak in complete sentences Auscultation: clear to auscultation bilaterally Cardio Rate: regular rate Rhythm: regular rhythm Neuro General: patient oriented x3 Extrem Other: No right wrist tenderness or swelling today. Significantly limited right wrist flexion. limited right wrist extension Mild left elbow pain with full extension Very subtle contracture of left elbow No active synovitis otherwise Negative Tinel sign bilaterally Negative Durkan's test bilaterally Assessment & Plan Assessment & Plan (1) Seropositive rheumatoid arthritis: Comment: ++RF+++CCP dx 02/2018 seropositive erosive Cimzia: July 2019-November 2019- Ineffective Enbrel:December 2019- March 2020-injection site reaction small areas of erythema at the injection site (mild per patient report) Humira: April 2020- November 2020-ineffective active disease on exam. Orenica: November 2020- June 2021 -active disease on exam. Xeljanz: June 2021- November 2021- ineffective/active disease on exam. Methotrexate: 01/2022- self-stopped by patient June 2022 due to hair loss Rinvoq started 07/29 effective, self DC 01/28-04/01 due worry about side effects flare 04/01 restarted SSZ added 06/2023 Code(s): M05.9 - Rheumatoid arthritis with rheumatoid factor, unspecified Category: Medical Plan: This is a 28-year-old female with seropositive RA who presents for follow-up. She is on Rinvoq 15 mg p.o. daily and sulfasalazine 1000 mg in the morning and 500 mg at night. Doing very well overall with no active synovitis on exam. Patient has history of noncompliance, which would results in episodes of flare-ups and possible damage and deformity. She has significant right wrist damage and limited range of motion, she also developed very subtle contracture of her left elbow She has been quite compliant recently. Continue with Rinvoq 15 mg p.o. daily Continue sulfasalazine 1000 mg in the morning and 500 mg at night Patient is of childbearing age, she is sexually active without contraception. Advised patient that she should have a reliable method of contraception as she can get and we do not have adequate safety data for Rinvoq with . This was reinforced today Follow-up with OBGYN Labs before next visit in 4 months (2) High risk medication use: Code(s): Z79.899 - Other long lines operator (current) drug therapy Category: Medical Plan: Patient on Rinvoq and sulfasalazine. Monitor safety labs Plan I spent 26 minutes reviewing patient's chart, evaluating patient, ordering diagnostic workup, counseling patient and documenting in the chart Orders: Orders Comprehensive Met. Panel 4 Months M05.9 - Rheumatoid arthritis with rheumatoid factor, unspecified C Reactive Protein 4 Months M05.9 - Rheumatoid arthritis with rheumatoid factor, unspecified Erythrocyte Sedimentation Rate 4 Months M05.9 - Rheumatoid arthritis with rheumatoid factor, unspecified Hepatitis A,B,C Profile 4 Months Z11.59 - Encounter for screening for other viral diseases Complete Blood Count Auto Diff 4 Months M05.9 - Rheumatoid arthritis with rheumatoid factor, unspecified Medications: Changed From sulfasalazine 1,000 mg (2 x 500 mg) PO BID 360 tabs 0RF To sulfasalazine 0.5 grams PO TID 270 tabs 1RF Coding Level of Care Code Est Pt Level 4 (98128) Diagnoses Seropositive rheumatoid arthritis M05.9 High risk medication use Z79.899
[2024-02-14 15:41] VITALS: BP 120/82; PULSE 77; O2SAT 97
== END 2024-02-14 15:55 | disposition home or self-care (01) ==
PROVIDERS: PCP Family Medicine; Visit Provider Student in an Organized Health Care Education/Training Program
DX: M05.79 Rheumatoid arthritis with rheumatoid factor of multiple sites without organ or systems involvement (principal); Z79.899 Other long term (current) drug therapy
CPT/HCPCS: 99214

== ENCOUNTER 2024-05-17 17:43 | Outpatient (REF) | payer MEDICAID, SELFPAY ==
--- OUTSIDE RECORDS SUMMARY | 2024-05-17 17:45 | XMS_ITS | Encounter Summary ---
Author Organization [employer] Address [address] [place] [address] Care Team Providers Care Web Master Name Role Phone Ainsley Patel MD Primary Care Provider [phone] Encounter Details Date Type Department Care Team ([facility] st Contact Info) Description 01/13/2022 Orders Only [facility] [address] [place] [address] Amberly Montero, ROMEO [address] [place] [address] Social History Tobacco Use Types Packs/Day Years Used Date Smoking Tobacco: Never Assessed Comments No Sex and Gender Information Value Date Recorded Sex Assigned at Female 12/06/2021 10:14 AM EDT Legal Sex Female 10:14 AM EDT Gender Identity Female 12/06/2021 10:14 AM EDT Sexual Orientation Choose not to disclose 2021 10:14 AM EDT COVID-19 Exposure Response Date Recorded In the last 10 days, have yo u been in contact with someone who was confirmed or suspected to have Coronavirus/COVID-19? No / Unsure 01/13/2022 10:03 AM EST documented as of this encounter Plan of Treatment Not on file documented as of this encounter Procedures Procedure Name Priority Date/Time Associated Diagnosis Comments PAP SMEAR Routine 07/15/2021 12:00 AM EDT documented in this encounter Results * Pap Smear (07/15/2021 12:00 AM EDT) Swab us Historical Provider LAB CYTOLOGY ORDERABLES F inal Result [facility] [address] [place] [address] documented in this encounter Visit Diagnoses Not on filedocumented in this encounter Care Teams Web Master Relationship Specialty Start Date End Date Ainsley Patel MD [address] [place] [address] PCP - General Family Medicine 02/16/22 documented as of this encounter
--- OUTSIDE RECORDS SUMMARY | 2024-05-17 17:45 | XMS_ITS | Encounter Summary ---
Author Organization [employer] Address [address] [facility] [address] [place] [address] Care Team Providers Care Account Management Specialist Name Role Phone Ainsley Patel MD Primary Care Provider Encounter Details Date Type Department Care Team (Late st Contact Info) Description 04/01/2022 Orders Only [facility] [address] [place], [place] [phone] Ainsley Patel MD [address] [place], [place] [phone] Neck pain (Primary Dx); Chronic bilateral thoracic back pain; Rheumatoid arthritis, involving unspecified site, unspecified whether rheumatoid factor present (CMS/[facility]) Social History Tobacco Use Types Packs/Day Years Used Date Smoking Tobacco: Never Passive Smoke Exposure: Never Smokeless Tobacco: Never Depression Answer Date Recorded Patient Health Questionnaire-9 Score 0 03/15/2022 Depression Answer Date Recorded Patient Health Questionnaire-2 Score 0 03/15/2022 Comments No Sex and Gender Information Value [...] suspected to have Coronavirus/COVID-19? No / Unsure 03/15/2022 9:57 AM EST documented as of this encounter Plan of Treatment Not on file documented as of this encounter Visit Diagnoses Diagnosis Neck pain- Primary Cervicalgia Chronic bilateral thoracic back pain Rheumatoid arthritis, involving unspecified site, unspecified whether rheumatoid factor present (CMS/[facility]) documented in this encounter Additional Health Concerns Assessment Noted Time PHQ-9 Depression Total Score: 0 03/15/19 10:09 AM EST documented as of this encounter Care Teams Account Management Specialist Relationship Specialty Start Date End Date Ainsley Patel MD [address] [place] [address] PCP - General Family Medicine 02/16/22 documented as of this encounter
--- OUTSIDE RECORDS SUMMARY | 2024-05-17 17:46 | XMS_ITS | Clinical Summary ---
Author Organization [facility] Address [address] [place] [address] Phone Care Team Providers Care National Flatbed Truck Driver Name Role Phone Ainsley Patel MD Primary Care Provider [phone] Allergies No known active allergies Encounters Date Type Department Care Team Description 05/14/2024 4:59 PM EDT - 05/14/2024 8:43 PM EDT Emergency [facility] Emergency [address] [place] [address] Jeffrey Rodriguez MD Acute right-sided thoracic back pain (Primary Dx) Discharge Disposition: Home or Self Care from Last 3 Months Social History Tobacco Use Types Packs/Day Years Used Date Smoking Tobacco: Never Assessed Comments Unknown Sex and Gender Information Value Date Recorded Sex Assigned at Female 05/14/2024 5:20 PM EDT Legal Sex Female 12:52 PM EST Gender Identity Female 05/14/2024 5:20 PM EDT Sexual Orientation Straight 05/14/2024 5: 20 PM EDT Obstetrics History Last Filed Vital Signs Vital Sign Reading Time Taken Comments Blood Pressure 125/83 05/14/2024 6:01 PM EDT Pulse 72 05/14/2024 6:01 PM EDT Temperature 37.3 ??C (99.1 ??F) 05/14/2024 6:01 PM ED T Respiratory Rate 16 05/14/2024 6:01 PM EDT Oxygen Saturation 95% 05/14/2024 6:01 PM EDT Inhaled Oxygen Concentration - - Weight 68.9 kg (152 lb) 05/14/2024 1:02 PM EDT Height 152.4 cm (5') 05/14/2024 1:02 PM EDT Body Mass Index 29.69 05/14/2024 1:02 PM EDT Plan of Treatment Health Maintenance Due Date Last Done Comments Hepatitis B Vaccines (3 of 3 - 3-dose series) 03/31/1995 02/03/1995, 03/15/1994 Cervical Cancer Screening: Pap Smear 2014 COVID-19 Vaccine (3 - Pfizer risk series) 12/07/2020 11/09/2020, 10/19/2020 Depression Screening 05/14/2024 03/15/2022 HIV Screening 05/14/2024 Hepatitis C Screening 05/14/2024 Social Influencers of Health Screening 05/14/2024 Influenza Vaccine (Season Ended) 2024 10/23/2019, 03/07/2018, 11/20/2008 DTaP,Tdap,and Td Vaccines (11 - Td or Tdap) 10/04/2028 10/04/2018, 08/13/2018, 09/27/2014, Additional history exists HIB Vaccines Completed 03/04/1996, 01/07, 05/12/1994, Additional history exists IPV Vaccines Completed 11/18/1998, 01/07, 05/12/1994, Additional history exists MMR Vaccines Completed 11/18/1998, 02/03/1995 Meningococcal ACWY Vaccine Aged Out 12/26/2006 N o longer eligible based on patient's age to complete this topic HPV Vaccines Completed 07/28/2010, 12/07, 11/18/2008 Hepatitis A Vaccines Completed 07/28/2010, 12/18/19 10 Varicella Vaccines Aged Out 11/11/2019 No longer eligible based on patient's age to complete this topic Meningococcal B Vaccine Aged Out No l onger eligible based on patient's age to complete this topic Pneumococcal Vaccine: Pediatrics (0 to 5 Years) and At-Risk Patients (6 to 64 Years) Aged Out No longer eligible based on patient's age to complete this topic RSV Immunization Patients Under 20 months Aged Out No longer eligible based on patient's age to complete this topic Procedures Procedure Name Priority Date/Time Associated Diagnosis Comments D-DIMER STAT 05/14/2024 7:[address] ABDOMEN PELVIS WO CONTRAST STAT 05/14/2024 5:46 PM EDT POC , URINE DIAGNOSTIC STAT 05/14/2024 1:28 PM EDT CBC WITH AUTO DIFFERENTIAL STAT 05/14/2024 1:16 PM EDT COMPREHENSIVE METABOLIC PANEL STAT 05/14/2024 1:16 PM EDT CBC AND DIFFERENTIAL STAT 05/14/2024 1:16 PM EDT GROVER URINE CULTURE TUBE STAT 05/14/2024 1:11 PM EDT URINALYSIS WITH REFLEX MICROSCOPIC AND CULTURE STAT 05/14/2024 1:11 PM EDT URINALYSIS WITH REFLEX MICROSCOPIC AND CULTURE STAT 05/14/2024 1:11 PM EDT from Last 3 Months Results * D-dimer, quantitative (05/14/2024 7:14 PM EDT) D-Dimer, Quant (D-DU) <150 <=230 ng/mL DDU LAB COAGULATION METHOD 05/14/2024 8:[address] [facility] Blood Venous blood specimen / Unknown Venipuncture / Unknown 05/14/2024 7:14 PM EDT 05/14/2024 7:[address] [facility] - 05/14/2024 8:07 PM EDT D-Dimer <230 ng/mL (D-Dimer units) is the threshold for exclusion of DVT/PE. D-Dimer may be elevated in: Critically ill, severely infected, trauma patients, DIC, acute CVA, acute OH, unstable angina, AF, old age, , and smoking. D-Dimer may be decreased with: Initiation of heparin therapy and oral anticoagulants. us Jeffrey Rodriguez MD LAB BLOOD ORDERABLES Final Result [facility] [address] [place] [address], [place] [phone] * CT Abdomen Pelvis wo Contrast (05/14/2024 5:46 PM EDT) Anatomical Region Laterality Modality Body Computed Tomogra phy 05/14/2024 6:13 PM EDT Impressions 05/14/2024 6:13 PM EDT 1. No acute intraabdominal or pelvic pathology. This document has been electronically signed by: Lonny Monge MD on 05/14/2024 18:13:59 Narrative 05/14/2024 6:13 PM EDT INDICATION: Flank pain, kidney stone suspected CT abdomen and pelvis without contrast Comparison: None Findings: No consolidation or effusion. Liver, gallbladder, pancreas, spleen, and adrenal glands are within normal limits. No hydronephrosis. Punctate nonobstructing calculi in the lower poles of both kidneys. No bowel obstruction, pneumoperitoneum, or pneumatosis. Pelvic contents unremarkable. Normal appendix. Trace free fluid in the pelvis, favored to be physiologic. No acute fracture. Procedure Note Lonny Monge MD - 05/14/2024 INDICATION: Flank pain, kidney stone suspected CT abdomen and pelvis without contrast Comparison: None Findings: No consolidation or effusion. Liver, gallbladder, pancreas, spleen, and adrenal glands are withinnormal limits. No hydronephrosis. Punctate nonobstructing calculi in the lower poles of both kidneys. No bowel obstruction, pneumoperitoneum, or pneumatosis. Pelvic contents unremarkable. Normal appendix. Trace free fluid in the pelvis, favored to be physiologic. No acute fracture. IMPRESSION: 1. No acute intraabdominal or pelvic pathology. This document has been electronically signed by: Lonny Monge MD on 05/14/2024 18:13:59 Jeffrey Rodriguez MD IM CT PROCEDURES Final Res ult * POC , urine manually resulted (05/14/2024 1:28 PM EDT) HCG, Ur POC Negative Negative POC hCG Int QC Pass? Yes Yes Urine Urine specimen obtained by clean catch procedure / Unknown 05/14/2024 1:28 PM EDT Jorge Arias Chema DO POINT OF CARE TEST ENTER/ED IT ORDERABLES Final Result * CBC auto differential (05/14/2024 1:16 PM EDT) [facility] WBC 8.2 4.8 - 10.8 K/mcL LAB HEMETOLOGY METHOD 05/14/2024 1:[address] [facility] RBC 4.20 3.80 - 4.80 M/mcL LAB HEMETOLOGY [facility] Hemoglobin 12.7 11.5 - 16.0 g/dL LAB HEMETOLOGY METHOD 05/14/2024 1:35 PM [facility] Hematocrit 39.7 35.0 - 47.0 % LAB HEMETOLOGY METHOD 05/14/2024 1:35 PM [facility] MCV 94.1 79.0 - 98.0 FL LAB HEMETOLOGY METHOD 05/14/2024 [facility] MCH 30.1 27.0 - 32.0 pcg LAB HEMETOLOGY METHOD 05/14/2024 1:35 PM [facility] MCHC 32.0 32.0 - 37.0 g/dL LAB HEMETOLOGY METHOD 05/14/2024 1:35 PM [facility] RDW 13.2 11.0 - 15.0 % LAB HEMETOLOGY METHOD 05/14/2024 1:35 PM [facility] Platelets 369 130 - 400 K/mcL LAB HEMETOLOGY METHOD 05/14/2024 1:35 PM [facility] MPV 9.1 7.0 - 11.0 FL LAB HEMETOLOGY METHOD 05/14/2024 [facility] NRBC 0.0 <1.0 % LAB HEMETOLOGY METHOD 05/14/2024 1:[address] [facility] NRBC Absolute 0.00 <0.10 K/mcL LAB HEMETOLOGY METHOD 05/14/2024 1:[facility] PM [facility] Neutrophils Relative 67.2 % LAB HEMETOLOGY METHOD 05/14/2024 1:35 PM [facility] Lymphocytes Relative 24.6 % LAB HEMETOLOGY METHOD 05/14/2024 1:35 PM [facility] Monocytes Relative 6.5 % LAB HEMETOLOGY METHOD 05/14/2024 1:35 PM [facility] Eosinophils Relative 0.7 % LAB HEMETOLOGY METHOD 05/14/2024 1:[facility] Basophils Relative 0.6 % LAB HEMETOLOGY METHOD 05/14/2024 1:35 PM [facility] Immature Granulocytes Relative 0.4 % LAB HEMETOLOGY METHOD 05/14/2024 1:35 PM [facility] Neutrophils Absolute 5.48 1.50 - 7.00 K/mcL LAB HEMETOLOGY METHOD 05/14/2024 1:35 PM [facility] Lymphocytes Absolute 2.01 1.00 - 5.00 K/mcL LAB HEMETOLOGY METHOD 05/14/2024 1:35 PM [facility] Monocytes Absolute 0.53 0.20 - 1.00 K/mcL LAB HEMETOLOGY METHOD 05/14/2024 1:35 PM [facility] Eosinophils Absolute 0.06 0.00 - 0.50 K/mcL LAB HEMETOLOGY METHOD 05/14/2024 1:35 PM [facility] Basophils Absolute 0.05 0.00 - 0.20 K/mcL LAB HEMETOLOGY METHOD 05/14/2024 1:35 PM [facility] Immature Granulocytes Absolute 0.03 0.00 - 0.03 K/mcL LAB HEMETOLOGY METHOD 05/14/2024 1:[address] [facility] Blood Venous blood specimen / Unknown Venipuncture / Unknown 05/14/2024 1:16 PM EDT 05/14/2024 1:22 PM EDT Jorge Bear DO LAB BLOOD ORDERABLES Final Result [facility] [address] [place] [address], [place] [phone] * (ABNORMAL) Comprehensive metabolic panel (05/14/2024 1:16 PM EDT) Sodium 138 133 - 145 mmol/L LAB CHEMISTRY METHOD 05/14/2024 1:59 PM [facility] Potassium 3.9 3.5 - 5.5 mmol/L LAB CHEMISTRY METHOD 05/14/2024 1:59 PM [facility] Chloride 107 96 - 110 mmol/L LAB CHEMISTRY METHOD 05/14/2024 1:59 PM [facility] CO2 27 21 - 32 mmol/L LAB CHEMISTRY METHOD 05/14/2024 1:59 PM [facility] Anion Gap 4 3 - 11 LAB CHEMISTRY METHOD 05/14/2024 1:59 PM [facility] Glucose 109(H) 70 - 100 mg/dL LAB CHEMISTRY METHOD 05/14/2024 1:59 PM [facility] BUN 7 5 - 25 mg/dL LAB CHEMISTRY METHOD 05/14/2024 1:59 PM [facility] Creatinine 0.69 0.50 - 1.10 mg/dL LAB CHEMISTRY METHOD 05/14/2024 1:59 PM [facility] eGFR 120 >=60 mL/min/1. 73m2 LAB CHEMISTRY METHOD 05/14/2024 1:[address] [facility] Comment:Calculation based on the??Chronic Kidney Disease Epidemiology Collaboration (CKD-EPI) equation refit??without adjustment for race. BUN/Creatinine Ratio 10.1 LAB CHEMISTRY METHOD 05/14/2024 1:[address] [facility] Calcium 9.0 8.5 - 10.5 mg/dL LAB CHEMISTRY METHOD 05/14/2024 1:[address] [facility] AST (SGOT) 12 10 - 42 unit/L LAB CHEMISTRY METHOD 05/14/2024 1:59 PM [facility] ALT (SGPT) 21 10 - 60 unit/L LAB CHEMISTRY METHOD 05/14/2024 1:59 PM [facility] Alkaline Phosphatase 68 42 - 121 unit/L LAB CHEMISTRY METHOD 05/14/2024 1:59 PM [facility] Total Protein 6.8 6.0 - 8.0 g/dL LAB CHEMISTRY METHOD 05/14/2024 1:[facility] Albumin 3.8 3.2 - 5.0 g/dL LAB CHEMISTRY METHOD 05/14/2024 1:59 PM [facility] Total Bilirubin 0.5 0.0 - 1.4 mg/dL LAB CHEMISTRY METHOD 05/14/2024 1:59 PM [facility] Blood Venous blood specimen / Unknown Venipuncture / Unknown 05/14/2024 1:16 PM EDT 05/14/2024 1:22 PM EDT us Jorge Bear DO LAB BLOOD ORDERABLES Final Result [facility] [address] [place] [address], [place] [phone] * (ABNORMAL) Urinalysis with reflex microscopic and culture (05/14/2024 1:11 PM EDT) Specific [place] Urine 1.021 1.003 - 1.030 LAB URINALYSIS - AUTOMATED METHOD 05/14/2024 1:25 PM [facility] pH, Urine 6.5 5.0 - 8.0 pH LAB URINALYSIS - AUTOMATED METHOD 05/14/2024 1:25 PM [facility] Leukocytes, Urine Negative Negative LAB URINALYSIS - AUTOMATED METHOD 05/14/2024 1:25 PM [facility] Nitrite, Urine Negative Negative LAB URINALYSIS - AUTOMATED METHOD 05/14/2024 1:25 PM [facility] Protein, Urine Trace <=Trace mg/dL LAB URINALYSIS - AUTOMATED METHOD 05/14/2024 1:25 PM [facility] Glucose, Urine Negative Negative mg/dL LAB URINALYSIS - AUTOMATED METHOD 05/14/2024 1:25 PM [facility] Ketones, Urine Trace(A) Negative mg/dL LAB URINALYSIS - AUTOMATED METHOD 05/14/2024 1:25 PM [facility] Urobilinogen, Urine 0.2 0.2 - 1.0 mg/dL LAB URINALYSIS - AUTOMATED METHOD 05/14/2024 1:25 PM [facility] Bilirubin, Urine Negative Negative LAB URINALYSIS - AUTOMATED METHOD 05/14/2024 1:25 PM [facility] Blood, Urine Trace(A) Negative LAB URINALYSIS - AUTOMATED METHOD 05/14/2024 1:25 PM [facility] RBC, Urine 10.8(H) 0 - 4 /HPF LAB URINALYSIS - AUTOMATED METHOD 05/14/2024 1:25 PM [facility] WBC, Urine 3.6 0 - 4 /HPF LAB URINALYSIS - AUTOMATED METHOD 05/14/2024 1:25 PM [facility] Squamous Epithelial, Urine >100(H) 0 - 60 /LPF LAB URINALYSIS - AUTOMATED METHOD 05/14/2024 1:[address] [facility] Bacteria, Urine Few(A) Negative /HPF LAB URINALYSIS - AUTOMATED METHOD 05/14/2024 1:[address] [facility] Hyaline Casts, Urine 1.2 0 - 3 /LPF LAB URINALYSIS - AUTOMATED METHOD 05/14/2024 1:[address] [facility] Urine Urine specimen obtained by clean catch procedure / Unknown Non-blood Collection / Unknown 05/14/2024 1:11 PM EDT 05/14/2024 1:17 PM EDT Jorge Bear DO LAB URINE ORDERABLES Final Result Performing Organization Address [facility]/ZIP Co de Phone Number [facility] [address] [place] [address], [place] [phone] * Grover urine culture tube (05/14/2024 1:11 PM EDT) Extra Tube Hold for add-ons. 05/14/2024 3:[address] [facility] Comment:Auto resulted. Urine Urine specimen obtained by clean catch procedure / Unknown Non-blood Collection / Unknown 05/14/2024 1:11 PM EDT 05/14/2024 1:18 PM EDT Jorge Bear DO LAB URINE ORDERABLES Final Result Performing Organization Address City/[facility]/ZIP Co de Phone Number [facility] [address] [place] [address], [place] [phone] from Last 3 Months Insurance MEDICAID - [place] Care Teams National Flatbed Truck Driver Relationship Specialty Start Date End Date Ainsley Patel MD [address] [place] [phone] PCP - General Family Medicine 05/14/24
--- OUTSIDE RECORDS SUMMARY | 2024-05-17 17:46 | XMS_ITS | Encounter Summary ---
Author Organization [facility] Address [address] [place] [address] [address] [place] [address] Care Team Providers Care Bodywork Therapist Name Role Phone Ainsley Patel MD Primary Care Provider [phone] Encounter Details Date Type Department Care Team (Late st Contact Info) Description 01/11/2022 Abstract [facility]INE [address] [place], [place] [phone] ProviderWaqar MD Social History Tobacco Use Types Packs/Day Years [...] documented as of this encounter Visit Diagnoses Not on filedocumented in this encounter Care Teams Bodywork Therapist Relationship Specialty Start Date End Date Ainsley Patel MD [address] [place], [place] [phone] PCP - General Family Medicine 02/16/22 documented as of this encounter
--- OUTSIDE RECORDS SUMMARY | 2024-05-17 17:46 | XMS_ITS | Encounter Summary ---
Author Organization [employer] Address [address] [facility] [address] [place] [address] Care Team Providers Care Ham Marker Name Role Phone Ainsley Patel MD Primary Care Provider [phone] Encounter Details Date Type Department Care Team (Late st Contact Info) Description 05/16/2024 Orders Only [facility] [address] [place] [address] ProviderWaqar MD Social History Tobacco Use Types Packs/Day Years Used Date Smoking Tobacco: Never Passive Smoke Exposure: Never Smokeless Tobacco: Never Alcohol Use Standard Drinks/Week Comments Not Currently 0 (1 standard drink = 0.6 oz pur e alcohol) Depression Answer Date Recorded Patient Health Questionnaire-9 Score 0 03/15/2022 Housing Stability Answer Date Recorded What is your housing situation today? I have alanna evans 10/25/[address] you li ve. Do you have problems with any of the following? None of the above 10/25/2023 Food Insecurity Answer Date Recorded Within the past 12 months, y ou worried that your food would run out before you got money to buy more: Never True 10/25/2023 Within the past 12 months,th e food you bought just didn't last and you didn't have enough money to get more: Never True Transportation Answer Date Recorded In the past 12 months, has l ack of transportation kept you from medical appts, meetings, work or from getting things needed for daily living? No 10/25/2023 Utilities Answer Date Recorded In the past 12 months, has t he electric, gas, oil or water company threatened to shut off services in your home? No 10/25/2023 Depression Answer Date Recorded Patient Health Questionnaire-2 Score 0 03/15/2022 Internet Access Answer Date Recorded Internet Access Q1 Yes 10/25/2023 Internet Access Q2 Not on file 10/25/2023 Comments No Sex and Gender Information Value Date Recorded Sex Assigned at Female 12/06/2021 10:14 AM EDT Legal Sex Female 10:14 AM EDT Gender Identity Female 12/06/2021 10:14 AM EDT Sexual Orientation Choose not to disclose 2021 10:14 AM EDT documented as of this encounter Plan of Treatment Not on file documented as of this encounter Procedures Procedure Name Priority Date/Time Associated Diagnosis Comments CT ABDOMEN PELVIS WO CONTRAST Routine 05/14/2024 7:58 AM EDT documented in this encounter Results * CT Abdomen Pelvis w/o Contrast (05/14/2024 7:58 AM EDT) Anatomical Region Laterality Modality Body, Pelvis, Abdomen Computed T omography us Historical Provider MD SAUNDERS CT PROCEDURES Final R esult documented in this encounter Visit Diagnoses Not on filedocumented in this encounter Additional Health Concerns Assessment Noted Time PHQ-9 Depression Total Score: 0 03/15/19 23 10:09 AM EST documented as of this encounter Care Teams Ham Marker Relationship Specialty Start Date End Date Ainsley Patel MD [address] [place] [address] PCP - General Family Medicine 02/16/22 documented as of this encounter
--- OUTSIDE RECORDS SUMMARY | 2024-05-17 17:46 | XMS_ITS ---
Author Organization [employer] Address [address] [place] [address] [address] [place] [address] Care Team Providers Care Observation Nurse Name Role Phone Ainsley Patel MD Primary Care Provider [phone] CM Complex Status:Outreach In Progress (Enrolling) Start date:05/14/2024 Enrollment reason:ADT Feed Overview ED- Pt went to [facility] on 05/13/24. . Case Team Name Relationship Phone Maximo Castillo RN Registered Nurse(Responsible S taff) Continued Care and Services Coordination
--- OUTSIDE RECORDS SUMMARY | 2024-05-17 17:46 | XMS_ITS | Encounter Summary ---
Author Organization [employer] Address [address] [place] [address] [address] [place] [address] Care Team Providers Care Bus Inspector Name Role Phone Ainsley Patel MD Primary Care Provider Reason for Visit * Reason Comments Transition Of Care (Tcm) Encounter Details Date Type Department Care Team ([facility] st Contact Info) Description 05/15/2024 Patient Outreach [facility] MEDICINE [address] [place], [place] [phone] Ainsley Patel MD [address] [place], [place] [phone] Transition Of Care (Tcm) Social History Tobacco Use Types Packs/Day Years [...] AM EDT documented as of this encounter Progress Notes * Priti Eric RN - 05/15/2024 11:27 AM EDT Transition of Care Note Brianna Frazier is going through a recent transition of care. * Yessenia Dasilva RN - 05/15/2024 11:27 AM EDT Hospital Discharges and Admission for [facility] Type of Visit: Emergency Department Date of Admission/Visit: 05/14/24 Facility: [facility] Diagnosis: Flank Pain , Pain in thoracic spine (M54.6) Disposition: Discharged Home Patient Contacted: Yes Patient Status: Unchanged Pt left before being seen at [facility] due to long wait times. Pt then went to [facility] where they noted the pt thought she had a kidney stone and was seen at where blood was noted in the urine. CT scan showed no consolidation or effusion. Pt has made an appt for 05/17/2024 for a sick onsite with Deloris Guerra for continued right flank pain. The full discharge summary is Is available under encounters/interface Review Flowsheet [facility] Transition of Care Documentation Type of Visit Date of Admission/Visit Facility Diagnosis Disposition 05/15/2024 11:27 AM Emergency Department 05/14/2024 [facility] Flank Pain , Pain in thoracic spine (M54.6) Discharged Home Recent Visits Date Type Provider Dept 10/16/23 Office Visit Amberly Montero CNM [facility] Medicine Showing recent visits within past 365 days with a meds authorizing provider and meeting all other requirements Future Appointments Date Type Provider Dept 05/17/24 Appointment Deloris Guerra NP [facility] Medicine Showing future appointments within next 150 days with a meds authorizing provider and meeting all other requirements Patient was educated on hours of operation. documented in this encounter Plan of Treatment Not on file documented as of this encounter Visit Diagnoses Not on filedocumented in this encounter Additional Health Concerns Assessment Noted Time PHQ-9 Depression Total Score: 0 03/15/19 10:09 AM EST documented as of this encounter Care Teams Bus Inspector Relationship Specialty Start Date End Date Ainsley Patel MD [address] [place] [address] PCP - General Family Medicine 02/16/22 documented as of this encounter
--- OUTSIDE RECORDS SUMMARY | 2024-05-17 17:46 | XMS_ITS ---
Author Organization [employer] Address [address] [place] [address] [address] [place] [address] Care Team Providers Care Music Department Chair Name Role Phone Ainsley Patel MD Primary Care Provider [phone] CHW Complex Status:Outreach In Progress (Enrolling) Start date:05/14/2024 Overview ED- Pt went to [facility] ED on 05/13/24. . Please outreach for enrollment. Case Team Name Relationship Phone Kerry Moyer (Responsible Staff) Continued Care and Services Coordination
--- OUTSIDE RECORDS SUMMARY | 2024-05-17 17:46 | XMS_ITS | Encounter Summary ---
Author Organization [employer] Address [address] [facility] [address] [place] [address] Care Team Providers Care Sueding Machine Tender Name Role Phone Ainsley Patel MD Primary Care Provider [phone] Reason for Visit * Reason Comments Care Coordination CM/CHW outreach Encounter Details Date Type Department Care Team (Latest Contact Info) Description 05/16/2024 Patient Outreach [facility] MEDICINE [address] [place], [place] [phone] Ainsley Patel MD [address] [place], [place] [phone] Care Coordination (CM/CHW outreach) Social History Tobacco Use Types Packs/Day Years [...] as of this encounter Progress Notes * Kerry Moyer - 05/16/2024 2:17 PM EDT CHW Kerry Moyer, placed outbound call to patient introducing herself from [facility] CM Department, in regards to offering services. Patient's name and was confirmed. Patient agreesto participate in program. Appt. for initial assessment scheduled for 06/07/24 @ 1PM tele with CM Maximo Castillo RN. CHW reinforced direct contact information or for any additional questions or concerns and extended clinic hours on Mondays and Wednesdays, and Walk-In Urgent Care Located in [facility]. Patient provided with after-hours line for [facility], ,which offer night time triage service and option to transfer to injection molding machine tender provider if needed. Patient verbalizes understanding, and able to repeat back to property underwriter. documented in this encounter Plan of Treatment Not on file documented as of this encounter Visit Diagnoses Not on filedocumented in this encounter Additional Health Concerns Assessment Noted Time PHQ-9 Depression Total Score: 0 03/15/19 23 10:09 AM EST documented as of this encounter Care Teams Sueding Machine Tender Relationship Specialty Start Date End Date Ainsley Patel MD [address] [place] [phone] PCP - General Family Medicine 02/16/22 documented as of this encounter
--- OUTSIDE RECORDS SUMMARY | 2024-05-17 17:46 | XMS_ITS | Encounter Summary ---
Author Organization [employer] Address [address] [facility] 7t [place] [address] Care Team Providers Care Floor Trader Name Role Phone Ainsley Patel MD Primary Care Provider Encounter Details Date Type Department Care Team (Late st Contact Info) Description 05/15/2024 Patient Outreach [facility] MEDICINE [address] [place] [address] [phone] Ainsley Patel MD [address] [place], [place] [phone] Social History Tobacco Use Types Packs/Day Years Used Date Smoking Tobacco: Never Passive Smoke Exposure: Never Smokeless Tobacco: Never Alcohol Use Standard Drinks/Week Comments Not Currently 0 (1 standard drink = 0.6 oz pur e alcohol) Depression Answer Date Recorded Patient Health Questionnaire-9 Score 0 03/15/2022 Housing Stability Answer Date Recorded What is your housing situation today? I have alannadarryl evans 10/25/[address] you [...] documented as of this encounter Care Teams Floor Trader Relationship Specialty Start Date End Date Ainsley Patel MD [address] [place] [phone] PCP - General Family Medicine 02/16/22 documented as of this encounter
--- OUTSIDE RECORDS SUMMARY | 2024-05-17 17:46 | XMS_ITS | Encounter Summary ---
Author Organization [employer] Address [address] [facility] 7t [place] [address] Care Team Providers Care Semiconductor Wafers Marker Name Role Phone Ainsley Patel MD Primary Care Provider [phone] Reason for Visit * Reason Comments Flank Pain Encounter Details Date Type Department Care Team ([facility] st Contact Info) Description 05/17/2024 3:30 PM EDT Office Visit [facility] MEDICINE [address] [place], [place] [phone] Deloris Guerra NP [address] [place], [place] [phone] Right flank pain (Primary Dx); Microscopic hematuria Social History Tobacco Use Types Packs/Day Years [...] AM EDT documented as of this encounter Last Filed Vital Signs Vital Sign Reading Time Taken Comments Blood Pressure 128/86 05/17/2024 3:53 PM EDT Pulse 82 05/17/2024 3:53 PM EDT Temperature 36.3 ??C (97.3 ??F) 05/17/2024 3:53 PM ED T Respiratory Rate 18 05/17/2024 3:53 PM EDT Oxygen Saturation 98% 05/17/2024 3:53 PM EDT Inhaled Oxygen Concentration - - Weight 71.2 kg (157 lb) 05/17/2024 3:53 PM EDT Height - - Body Mass Index 30.66 10/16/2023 2:05 PM EDT documented in this encounter Plan of Treatment Scheduled Orders Name Type Priority Associated Diagnoses Orde r Schedule Culture, Urine, Routine Microbiology Routine Right flank pain Expected: 05/17/2024 (Approximate), Expires: 05/17/2025 Urinalysis Complete Lab Routine Right flank pain Microscopic hematuria Expected: 05/17/2024 (Approximate), Expires: 05/17/2025 documented as of this encounter Procedures Procedure Name Priority Date/Time Associated Diagnosis Comments POCT URINALYSIS DIPSTICK Routine 05/17/2024 4:45 PM EDT Right flank pain documented in this encounter Results * (ABNORMAL) POCT urinalysis dipstick manually resulted (05/17/2024 4:45 PM EDT) Color, UA Light Yellow Clarity, UA Clear Glucose, UA Negative Bilirubin, UA Negative Ketones, UA Negative Spec Grav, UA 1.015 Blood, UA Positive(A) Negative, None Detected Comment:Small pH, UA 5.5 Protein, UA Negative Urobilinogen, UA 0.2 Leukocytes, UA Negative Negative, Rare, Trace Nitrite, UA Negative Negative, None Detected Appearance, UA Clear QC Media Lot # [id number] Lot# Expiration Date [id number] Urine 05/17/2024 4:45 PM EDT [facility] [employer] POINT OF CARE TEST ENTER/EDIT O RDERABLES Final Result documented in this encounter Visit Diagnoses Diagnosis Right flank pain- Primary Abdominal pain, unspecified site Microscopic hematuria documented in this encounter Additional Health Concerns Assessment Noted Time PHQ-9 Depression Total Score: 0 03/15/19 10:09 AM EST documented as of this encounter Care Teams Semiconductor Wafers Marker Relationship Specialty Start Date End Date Ainsley Patel MD [address] [place] [phone] PCP - General Family Medicine 02/16/22 documented as of this encounter
--- OUTSIDE RECORDS SUMMARY | 2024-05-17 17:46 | XMS_ITS | Encounter Summary ---
Author Organization [employer] Address [address] [place] [address] 7t [place] [address] Care Team Providers Care Boil Off Worker Name Role Phone Ainsley Patel MD Primary Care Provider [phone] Reason for Visit * Reason Comments Care Management C3- chart review Encounter Details Date Type Department Care Team ([facility] st Contact Info) Description 05/14/2024 Patient Outreach [facility] MEDICINE 230 [place], [place] [phone] Ainsley Patel MD 230 [place], [place] [phone] Care Management (C3CM- chart review) Social History Tobacco Use Types Packs/Day Years [...] as of this encounter Progress Notes * Maximo Castillo RN - 05/14/2024 9:05 AM EDT Maximo Castillo RN, performed chart review, in anticipation of initial assessment with patient, as patient has stratified for Adult Complex Care through the ADT feed. History significant for foot pain, knee pain, rheumatoid arthritis, vitamin D deficiency, class 1 obesity, impaired glucose tolerance during , cervical dysplasia, acute URI, and macromastia. Specialists include [facility] Optometry, [facility] Rheumatology, [facility] Ortho, and [facility] Plastic Surgery. ED visits within the last 12 months include [facility]24 and [facility] 03/[facility]. Per [facility] note from 05/13/24, patient arrived from to rule of kidney stone. Patient left without being seen. Last appointment in PCPoffice on 10/16/23. Seen by Optometry on 05/01/24. No future appointments scheduled at this time. documented in this encounter Plan of Treatment Not on file documented as of this encounter Visit Diagnoses Not on filedocumented in this encounter Additional Health Concerns Assessment Noted Time PHQ-9 Depression Total Score: 0 03/15/19 23 10:09 AM EST documented as of this encounter Care Teams Boil Off Worker Relationship Specialty Start Date End Date Ainsley Patel MD [address] [place] [id number] PCP - General Family Medicine 02/16/22 documented as of this encounter
--- OUTSIDE RECORDS SUMMARY | 2024-05-17 17:46 | XMS_ITS | Encounter Summary ---
Author Organization [employer] Address [address] [place] [address] 7 [place] [address] Care Team Providers Care Real Estate Agent Name Role Phone Ainsley Patel MD Primary Care Provider [phone] Reason for Visit * Reason Comments Care Coordination CHW Chart review Encounter Details Date Type Department Care Team (Latest Contact Info) Description 05/14/2024 Patient Outreach [facility] MEDICINE [address] [place], [place] [phone] Ainsley Patel MD 230 [place], [place] [phone] Care Coordination (CHW Chart review) Social History Tobacco Use Types Packs/Day [...] encounter Progress Notes * Kerry Moyer - 05/14/2024 11:04 AM EDT CM/C3 CHW Kerry Moyer Chart Review CHW Kerry Moyer reviewed chart review completed by WOJCIECH Castillo RN WOJCIECH Castillo RN, performed chart review, in anticipation of initial assessment with patient, as patient has stratified for C3 Adult Complex Care through the ADT feed. History significant for foot pain, knee pain, rheumatoid arthritis, vitamin D deficiency, class 1 obesity, impaired glucose tolerance during , cervical dysplasia, acute URI, and macromastia. Specialists include [facility] Optometry, [facility], [facility], and [facility] Plastic Surgery. ED visits within the last 12 months include [facility] 05/13/24 and [facility] 03/09/24. Per [facility] note from 05/13/24, patient arrived from [...] documented as of this encounter Care Teams Real Estate Agent Relationship Specialty Start Date End Date Ainsley Patel MD [address] [place] [phone] PCP - General Family Medicine 02/16/22 documented as of this encounter
--- OUTSIDE RECORDS SUMMARY | 2024-05-17 17:46 | XMS_ITS | Encounter Summary ---
Author Organization [employer] Address [address] [facility] [address] 7t [place] [address] Care Team Providers Care Senior Media Buyer Name Role Phone Ainsley Patel MD Primary Care Provider [phone] Encounter Details Date Type Department Care Team (Latest Contact Info) Description 05/17/2024 Travel Social History Tobacco Use Types Packs/Day Years [...] documented as of this encounter Care Teams Senior Media Buyer Relationship Specialty Start Date End Date Ainsley Patel MD [address] [place] [phone] PCP - General Family Medicine 02/16/22 documented as of this encounter
--- OUTSIDE RECORDS SUMMARY | 2024-05-17 17:46 | XMS_ITS | Encounter Summary ---
Author Organization [employer] Address [address] [facility] 7t [place] [address] Care Team Providers Care Seed Analyst Name Role Phone Ainsley Patel MD Primary Care Provider Encounter Details Date Type Department Care Team (Late st Contact Info) Description 05/14/2024 Patient Outreach [facility] MEDICINE [address] [place] [address] [phone] Ainsley Patel MD 230 [place], [place] [phone] Social History Tobacco Use Types Packs/Day Years [...] documented as of this encounter Care Teams Seed Analyst Relationship Specialty Start Date End Date Ainsley Patel MD [address] [place] [phone] PCP - General Family Medicine 02/16/22 documented as of this encounter
--- OUTSIDE RECORDS SUMMARY | 2024-05-17 17:46 | XMS_ITS | Encounter Summary ---
Author Organization [employer] Address [address] [place] [address] 7 [place] [address] Care Team Providers Care Ball Winder Name Role Phone Ainsley Patel MD Primary Care Provider [phone] Reason for Visit * Reason Onset Date Comments Nurse Triage 05/15/2024 Encounter Details Date Type Department Care Team ([facility] st Contact Info) Description 05/15/2024 Telephone [facility] MEDICINE [address] [place], [place] [phone] Ainsley Patel MD [address] [employer], [place] [phone] Nurse Triage Social History Tobacco Use Types Packs/Day Years [...] AM EDT documented as of this encounter Miscellaneous Notes * Telephone Encounter - Shonda Morrow LPN - 05/15/2024 1:20 PM EDT Triage call returned to patient. No answer at this time. Will attempt call again in several minutes. Triage call again to patient who reports she was seen at [facility] ED and was cleared to return home had CT and study to rule out a blood clot per patient patient with no fever but continued discomfort of right flank area. Worse with movement and deep breath. Is drinking good volumes of water no blood or pus noted in urine but had been told at [facility] on [address] that she had blood in her urine. Due for Menses next week with LMP 04/23/24. Has been taking ibuprofen that seems to make her feel more bladder pressure. Advised to try Tylenol continue good volume of fluids. Reviewed with patient home care recommendations, reasons to call back and symptoms that require immediate evaluation in UC or ER. Pt verbalized understanding and agrees. Disposition reviewed and patient provided ASK/MShelley NPappt on Monday05/17/24 330pm. Protocol Used: Flank Pain (Adult) Protocol-Based Disposition: See in Office or Video Visit Today or Tomorrow Override (Final) Disposition: See in Office or Video Visit within 3 Days Override Reason: No appointments available Video visit not offered Positive Triage Question: * Patient wants to be seen * All higher-acuity triage questions were negative Care Advice Discussed: * Use Heat After 48 Hours for Pain * Continue Activity * Pain Medicines * Reasons To Call Back - Fever over 100.4 F (38.0 C) - Burning with urination or blood in urine - Pain lasts over 3 days - You become worse * Telephone Encounter - Ivan Michele - 05/15/2024 12:30 PM EDT Symptom: Urine Symptoms Outcome: Schedule a same-day appointment or talk to a nurse or provider today Reason: Caller denied all higher acuity questions The caller accepted this outcome. Pt went to [facility] due to pain on left side pelvic pain . They suggested possible UTI . Pt was recommended to take tylenol by [facility] Provider. documented in this encounter Plan of Treatment Not on file documented as of this encounter Visit Diagnoses Not on filedocumented in this encounter Additional Health Concerns Assessment Noted Time PHQ-9 Depression Total Score: 0 03/15/19 10:09 AM EST documented as of this encounter Care Teams Ball Winder Relationship Specialty Start Date End Date Ainsley Patel MD [address] [place] [id number] PCP - General Family Medicine 02/16/22 documented as of this encounter
--- OUTSIDE RECORDS SUMMARY | 2024-05-17 17:46 | XMS_ITS | Clinical Summary ---
Author Organization [employer] Address [address] [facility] [address] [facility] [address] [place] [address] Care Team Providers Care Can Vacuum Tester Name Role Phone Ainsley Patel MD Primary Care Provider [phone] Allergies No known active allergies Medications ergocalciferol (Vitamin D-2) 1.25 MG (59283 UT) capsule Take 1 capsule by mouth 1 (one) time per week. 0 Active fluocinolone (Milpitas-Smoothe) 0.01 % external oil Apply topically. 2 Active ketoconazole (NIZOral) 2 % shampoo apply by topical route 2-3 times weekly to the affected area(s), lather, leave in place for 5 minutes, and then rinse off with water 2 Active naproxen (Naprosyn) 500 MG tablet Take 1 tablet by mouth in the morning and 1 tablet in the evening. 2 Active fluticasone (Flonase) 50 MCG/ACT nasal sprayIndication s:Cough, unspecified type,URI, acute SPRAY 1 SPRAY INTO EACH NOSTRIL IN THE MORNING 48 mL 3 Active ulipristal (Sharon) 30 mg tablet Take one tablet by mouth up to five days after sex. Do not use more than once per menstrual cycle 1 tablet 11 3 Active famotidine (Pepcid) 20 MG tabletIndicatio ns:Globus sensation Take 1 tablet twice daily as needed for acid reflux 40 tablet 3 Active Vit-Fe Fumarate-FA ( Plus) 27-1 MG tablet One tablet by mouth daily 30 tablet 11 4 Active sulfaSALAzine (Azulfidine) 500 MG tablet Take 1 tablet by mouth every 6 (six) hours during the day. 5 Active baclofen (Lioresal) 10 MG tabletIndicatio ns:Right flank pain Take one tablet TID PRN 30 tablet 5 Active ibuprofen 600 MG tabletIndicatio ns:Right flank pain Take 1 tablet (600 mg) by mouth every 6 (six) hours if needed for mild pain for up to 14 days. 56 tablet 5 06/01/19 25 Active upadacitinib ER (Rinvoq) 15 MG tablet sustained-relea se 24 hour Take 15 mg by mouth Once per day. Do not crush, chew or split. Swallow whole. Active Abatacept (Orencia ClickJect) 125 MG/ML solution auto-injector Inject 1 mL under the skin once a week. 05/18/19 Discontinu ed(Alterna te therapy) ibuprofen 800 MG tablet Take 1 tablet by mouth every 8 (eight) hours. 1 05/18/19 Discontinu ed(Dose adjustment ) methotrexate 2.5 MG tablet TAKE 8 TABLETS BY MOUTH ONCE PER WEEK 3 05/18/19 Discontinu ed(Alterna te therapy) Hospital, Clinic, or Other Facility Administered Medication Ordered Dose Route Frequency Start Date End Date Status Levonorgestrel intrauterine device 20.1 mcg/dayIndications:Visit for insertion of intrauterine device 20.1 mcg/day IU Once 01/19/2022 Active Active Problems Problem Noted Date Diagnosed Date Macromastia 10/18/2022 Assessment & Plan (11/09/2022 4:58 AM EDT): - pt is having neck pain and back pain, occasional skin irritation under the breast - she has already tried physical therapy with marginal relief - refer to plastic surgeon again DEBORAHI, acute 06/06/2022 Assessment & Plan (06/06/2022 8:51 PM EDT): Rest (sleep at least 8 hours a night). Hydrate with plenty of water (avoid caffeine and alcohol). Use saline nose drops + Flonase nasal spray Take Acetaminophen (Tylenol??)/Ibuprofen as needed for fever, headache, body aches or discomfort Gargle with salt water and use throat sprays/lozenges for throat pain. Use heated, humidified air. If you do not have a humidifier, take hot showers. Cover coughs and sneezes using the crook of your elbow. If you have a fever, stay home and away from others (self isolation) until fever-free for 72 hours (temperature should be less than 100??F without medication). Out of work x 2d, back on 06/08. 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 cytologic smear 03/25/2022 Assessment & Plan (03/25/2022 6:41 PM EST): -Following with [facility] CONFIDENTIAL INVESTIGATOR -Feb 2018 PAP LSIL -April 2018 Colposcopy normal -07/15/21 PAP Normal History of cervical dysplasia 03/25/2022 Overview (03/25/2022): 02/2018 LSIL/HSIL Assessment & Plan (11/09/2022 4:57 AM EDT): - Feb 2018 PAP LSIL - April 2018 Colposcopy normal - 07/15/21 PAP Normal - most recent PAP on 10/04/22 NILM with negative high-risk HPV Vitamin D deficiency 03/15/2022 Assessment & Plan (03/15/2022 10:42 AM EST): -Continue on supplement as prescribed by [employer] Professor -[facility]: Vit D = 27.2 on 11/10/21 Foot pain 01/07/2022 Assessment & Plan (03/15/2022 10:37 AM EST): ordered xray to r/o bony pathology felicity bandage applied. alternate warm and cold compress physical exam most likely Grade 1-2 lateral ankle sprain will advice of results naproxen prn for pain advised brc's of medication advised physical rest and non weight bearing for 1-2 days and may start weightbearing thereafter if tolerable. followup in office if worsening in 2-3 days Knee pain 01/07/2022 Rheumatoid arthritis 05/06/2020 Assessment & Plan (11/09/2022 5:01 AM EDT): Seropositive RA -Current medications: Upadacitinib, JK-inhibitor -Treatment Hx: Pt developed side effects from several different medications; Pt reported ineffectiveness of several DMARDs. Pt has tried Enbrel. Prednisone / methylprednisolone were tapered off and pt reported that it was not effective. Discontinued methotrexate due to concern for hair loss in June 2022. Started on upadacitinib -Continue judicious use of ibuprofen for pain -Pt no longer has IUD Assessment & Plan (03/25/2022 6:34 PM EST): Seropositive RA -Current medications: methotrexate 25 mg daily with folic acid; plan for methylprednisolone taper -Treatment Hx: Pt developed side effects from several different medications; Pt reported ineffectiveness of several DMARDs. Pt has tried Enbrel. Prednisone taper was not effective. -Continue judicious use of ibuprofen for pain -Pt has IUD Resolved Problems Problem Noted Date Diagnosed Date Resolved Date Cough 06/06/2022 11/09/2022 Encounter for insertion of i ntrauterine contraceptive device (IUD) 01/13/2022 11/09/2022 Encounters Date Type Department Care Team Description 05/17/2024 3:30 PM EDT Office Visit [facility] [address] [place] [phone] Deloris Guerra NP Right flank pain (Primary Dx); Microscopic hematuria 05/17/2024 Travel 05/16/2024 Patient Outreach [facility] [address] [place] [address] Ainsley Patel MD Care Coordination (CM/CHW outreach) 05/16/2024 Orders Only [facility] [address] [place] [id number] Provider, MD Waqar 05/15/[address] [address] Ainsley Patel MD Nurse Triage 05/15/2024 Patient Outreach [address] [phone] Ainsley Patel MD Transition Of Care (Tcm) 05/15/2024 Patient Outreach [address] [phone] Ainsley Patel MD 05/14/2024 Patient Outreach [address] [address] Ainsley Patel MD Care Coordination (W Chart review) 05/14/2024 Patient Outreach [address] [phone] Ainsley Patel MD Care Management ([facility]- chart review) 05/14/2024 Patient Outreach [address] [phone] Ainsley Patel MD 05/01/2024 1:45 PM EDT Office Visit [facility] OPTOMETRY [address] [place] [address] Luciana German, OD Myopia of right eye (Primary Dx) 05/01/2024 Travel 04/19/2024 Population Health Risk Score [facility] () [address] [phone] Provider, Population Health Generic 03/01/2024 11:00 AM EST Office Visit 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); Chorioretinal scar of left eye; Myopia of right eye 03/01/2024 Travel from Last 3 Months Immunizations Name Administration Dates Next Due DTaP 11/18/1998, 7,02/03/1995,05/12,03/15/1994 HPV, Quadrivalent 07/28/2010,12/17/2009,11/19/19 09 Hep A, ped/adol, 2 dose 07/28/2010,12/17/2009 Hep B, Adolescent or Pediatric 02/03/1995,1994 Hib (HbOC) 03/04/1996, 5,05/12/1994,03/15 IPV 11/18/1998, 5,05/12/1994,03/15 Influenza Injectable Quadriv alant Preservative Free IIV4 MDCK 10/23/2019 Influenza, IIV3, injectable 03/07/2018, 9 MMR 11/18/1998,02/03/1995 Meningococcal MCV4P ACYW-135 12/26/2006 Pfizer Covid-19 Vaccine 12+ 11/09/2020, 1 Td (adult), 5 Lf tetanus tox oid, preservative free, adsorbed 09/27/2014,03/23/2013 Tdap 10/04/2018,08/13/2018,12/26/2006 Varicella 11/11/2019 Family History Medical History Relation Name Comments Breast cancer Father's Sister Diabetes type II Paternal Grandfather cancer nose Paternal Grandmother Relation Name Status Comments Father's Sister Paternal Grandfather Paternal Grandmother Social History Tobacco Use Types Packs/Day Years Used Date Smoking Tobacco: Never Passive Smoke Exposure: Never Smokeless Tobacco: Never Tobacco Cessation:Counseling Given: Not Answered Alcohol Use Standard Drinks/Week Comments Not Currently [...] not to disclose 2021 10:14 AM EDT Last Filed Vital Signs Vital Sign Reading Time Taken Comments Blood Pressure 128/86 05/17/2024 3:53 PM EDT Pulse 82 05/17/2024 3:53 PM EDT Temperature 36.3 ??C (97.3 ??F) 05/17/2024 3:53 PM ED T Respiratory Rate 18 05/17/2024 3:53 PM EDT Oxygen Saturation 98% 05/17/2024 3:53 PM EDT Inhaled Oxygen Concentration - - Weight 71.2 kg (157 lb) 05/17/2024 3:53 PM EDT Height 152.4 cm (5') 10/16/2023 2:05 PM EDT Body Mass Index 30.66 10/16/2023 2:05 PM EDT Plan of Treatment Health Maintenance Due Date Last Done Comments HIV Screening 1993 Hepatitis B Vaccines (3 of 3 - 3-dose series) 03/31/1995 02/03/1995, 03/15/1994, 1993 Alcohol/Substance Use Screening 2005 Depression Screening 03/15/2023 03/15/2022, 03/15/19 23 HPV/Cotest 10/05/2023 10/04/2022 COVID-19 Vaccine ( season) 2023 11/09/2020, 10/19/2020 Influenza Vaccine (#1) 2023 , 03/07/2018, 11/20/2008 Cervical Cancer Screening 10/15/2024 Family Planning (PISQ) 10/15/2024 10/16/2023 Pap Smear 10/15/2024 10/16/2023, 09/07, 07/15/2021 SDOH Screening 10/24/2024 10/25/2023 Tobacco Screening 03/21/2025 03/21/2024 DTaP/Tdap/Td Vaccines (11 - Td or Tdap) 10/04/2028 10/04/2018, 08/13/2018, 09/27/2014, Additional history exists Zoster Vaccines (1 of 2) 12/21/2043 RSV Patients and Patients Aged 60 years or older (1 - 1-dose 75+ series) 2068 HIB Vaccines Completed 03/04/1996, 01/07, 05/12/1994, Additional history exists IPV Vaccines Completed 11/18/1998, 01/07, 05/12/1994, Additional history exists Meningococcal Vaccine Aged Out 12/26/2006 No roberto nikhil eligible based on patient's age to complete this topic HPV Vaccines Completed 07/28/2010, 12/07, 11/18/2008 Hepatitis A Vaccines Completed 07/28/2010, 12/18/19 10 Hepatitis C Screening Completed 07/16/2019 Pneumococcal Vaccine: Pediatrics (0 to 5 Years) and At-Risk Patients (6 to 49) Years) Aged Out No longer eligible based on patient's age to complete this topic RSV under 20 months Aged Out No longe r eligible based on patient's age to complete this topic Rotavirus Vaccines Aged Out No longer eligible based on patient's age to complete this topic Procedures Procedure Name Priority Date/Time Associated Diagnosis Comments POCT URINALYSIS DIPSTICK Routine 05/17/2024 4:45 PM EDT Right flank pain CT ABDOMEN PELVIS WO CONTRAST Routine 05/14/2024 7:58 AM EDT THINPREP IMAGING SYSTEM PAP Routine 10/16/2023 2:15 PM EDT Routine cervical smear HPV DNA PROBE, AMPLIFIED Routine 10/04/2022 12:00 AM EDT ZZZ HISTORICAL HEPATITIS A,B,C PROFILE Routine 07/16/2019 10:40 AM EDT from Last 3 Months or Most Recently Relevant to Health Maintenance Results * (ABNORMAL) POCT urinalysis dipstick manually [...] Media Lot # [id number] Lot# Expiration Date [id number] Urine 05/17/2024 4:4 5 PM EDT Deloris Guerra APPLE SORTER POINT OF CARE TEST ENTER/EDIT O RDERABLES Final Result * CT Abdomen Pelvis w/o Contrast (05/14/2024 7:58 AM EDT) Anatomical Region Laterality Modality Body, Pelvis, Abdomen Computed T omography Historical Provider MD SAUNDERS CT PROCEDURES Final R esult * Pap Smear (10/16/2023 2:15 PM EDT) SOURCE: SEE NOTE [facility] Comment:None given Report Status: [facility] Clinical Information: SEE NOTE [facility] Comment:None given LMP: SEE NOTE [facility] Comment:NONE GIVEN Prev. PAP: SEE NOTE [facility] Comment:NONE GIVEN Prev. BX: SEE NOTE [facility] Comment:NONE GIVEN Statement Of Adequacy: SEE NOTE [facility] Comment:Satisfactory for josé luis luation.Endocervical/transformation zone componentpresent. General Categorization: [facility] Interpretation/Result: SEE NOTE [facility] Comment:Cytology Results: Ne gative for intraepitheliallesion or malignancy. Cytology Comment SEE NOTE [facility] Comment:This Pap test has be en evaluated with computerassisted technology. Software Applications Designer: SEE NOTE [facility] Comment:MRC, CT(ASCP) CT scr eening location: [address] [address] Review Software Applications Designer: [facility] Pathologist [facility] PAP Infection [facility] See Note SEE NOTE [facility] Comment:EXPLANATORY NOTE:The Pap is a screening test for cervical cancer. It isnot a diagnostic test and is subject to false negativeand false positive results. It is most reliable when asatisfactory sample, regularly obtained, is submittedwith relevant clinical findings and history, and whenthe Pap result is evaluated along with historic andcurrent clinical information.THIS TEST WAS PERFORMED AT:[facility] [address] [id number] ROJAS MD Pap Vial Vaginal structure / Unknown 10/16/2023 2:15 PM EDT 10/16/2023 5:57 PM EDT Narrative [facility] - 10/19/2023 11:52 AM EDT SEE SCANNED RESULTS IN EMR Amberly BERRY [facility] PATHOLOGY ORDERABLES Final Result [facility] [address] [place] [phone] [phone] * HPV DNA probe, amplified (10/04/2022 12:00 AM EDT) HPV mRNA E6/E7 Not Detected Not Detected [facility] Comment:Methodology: Transcr iption-Mediated AmplificationThis assay detects E6/E7 viral messenger RNA (mRNA) from 14high-risk HPV types (16,18,31,33,35,39,45,51,52,56,58,59,66,68).Cervical sources are required for HPV testing.If a vaginal source from a patient who has had atotal hysterectomy with removal of cervix wassubmitted, please contact the testing laboratoryfor alternative testing options.For additional information, please refer [email or web address](This link if provided for information/educational purposes only.)THIS TEST WAS PERFORMED AT:[employer] [place] [id number] ROJAS MD 10/04/2022 10/05/2022 10: 30 AM EDT Amberly Montero [facility] MICROBIOLOGY - GENERA L ORDERABLES Final Result [facility] [address] [place] [address] [phone] * HEPATITIS A,B,C PROFILE (07/16/2019 10:40 AM EDT) HEPATITIS B CORE ANTIBODY NONREACTIVE NONREACTIVE [facility] HEPATITIS B INTERPRETATION SEE NOTE [facility] Comment: Consistent with Hepatitis B immunization or recovery and immunity from Hepatitis B infection. HEPATITIS B SURFACE ANTIBODY REACTIVE NONREACTIVE [facility] Comment: ?? REACTIVE: ??> 11.99 mIU/mL HEPATITIS B SURFACE ANTIGEN NEGATIVE NEGATIVE [facility] HEPATITIS C ANTIBODY NONREACTIVE NONREACTIVE [facility] Comment: Antibodies to HCV not detected; does not exclude early acute HCV infection. 07/16/2019 10:4 0 AM EDT Historical Provider HISTORICAL/NON ORDERABLE LABS Final Result Performing Organization Address City/[facility]/ZIP Co de Phone Number [facility] [address] from Last 3 Months or Most Recently Relevant to Health Maintenance Insurance [employer] C3 Care Teams Can Vacuum Tester Relationship Specialty Start Date End Date Ainsley Patel MD [address] [place] [place] [phone] PCP - General Family Medicine 02/16/22
--- OUTSIDE RECORDS SUMMARY | 2024-05-17 17:46 | XMS_ITS | Encounter Summary ---
Author Organization [employer] Address [address] [place] [address] Care Team Providers Care Marine Reporter Name Role Phone Ainsley Patel MD Primary Care Provider [phone] Reason for Visit * Reason Comments Flank Pain Encounter Details Date Type Department Care Team (Late st Contact Info) Description 05/14/2024 4:59 PM EDT - 05/14/2024 8:43 PM EDT Emergency [facility] Emergency [address] [place] [address] Jeffrey Rodriguez MD [address] [address] Acute right-sided thoracic back pain (Primary Dx) Discharge Disposition: Home or Self Care Social History Tobacco Use Types Packs/Day Years Used Date Smoking Tobacco: Never Assessed Comments Unknown Sex and Gender Information Value Date Recorded Sex Assigned at Female 05/14/2024 5:20 PM EDT Legal Sex Female 12:52 PM EST Gender Identity Female 05/14/2024 5:20 PM EDT Sexual Orientation Straight 05/14/2024 5: 20 PM EDT documented as of this encounter Last [...] Mass Index 29.69 05/14/2024 1:02 PM EDT documented in this encounter Discharge Instructions * Discharge Instructions* Jeffrey Rodriguez MD - 05/14/2024 8:28 PM EDT Take tylenol or motrin over the counter, if pain persists followup with your primary physician. Recheck your urine, does not appear to have an infection at this time. * Attachments The following attachments cannot be sent through Care Everywhere. * Flank Pain (Tristanian) documented in this encounter Discharge Disposition Disposition Code Departure Means Destination Comment s Home or Self Care documented in this encounter Progress Notes * Den Hanks RN - 05/14/2024 12:56 PM EDT Patient thinks she has a kidney stone, was seen at urgent care with blood in urne. Came in for further treatment documented in this encounter Plan of Treatment Not on file documented as of this encounter Procedures Procedure Name Priority Date/Time Associated Diagnosis Comments D-DIMER STAT 05/14/2024 7:[address] ABDOMEN PELVIS WO CONTRAST STAT 05/14/2024 5:46 PM EDT POC , URINE DIAGNOSTIC STAT 05/14/2024 1:28 PM EDT CBC WITH AUTO DIFFERENTIAL STAT 05/14/2024 1:16 PM EDT CBC AND DIFFERENTIAL STAT 05/14/2024 1:16 PM EDT COMPREHENSIVE METABOLIC PANEL STAT 05/14/2024 1:16 PM EDT URINALYSIS WITH REFLEX MICROSCOPIC AND CULTURE STAT 05/14/2024 1:11 PM EDT GROVER URINE CULTURE TUBE STAT 05/14/2024 1:11 PM EDT URINALYSIS WITH REFLEX MICROSCOPIC AND CULTURE STAT 05/14/2024 1:11 PM EDT documented in this encounter Results * D-dimer, quantitative (05/14/2024 7:14 PM EDT) D-Dimer, Quant (D-DU) <150 <=230 ng/mL DDU LAB COAGULATION METHOD 05/14/2024 8:07 PM EDT [facility] Blood Venous blood specimen / Unknown Venipuncture / Unknown 05/14/2024 7:14 PM EDT 05/14/2024 7:39 PM EDT Narrative [facility] - 05/14/2024 8:07 PM EDT D-Dimer <230 ng/mL (D-Dimer units) is the threshold for exclusion of DVT/PE. D-Dimer may be elevated in: Critically ill, severely infected, trauma patients, DIC, acute CVA, acute OR, unstable angina, AF, old age, , and smoking. D-Dimer may be decreased with: Initiation of heparin therapy and oral anticoagulants. us Jeffrey Rodriguez MD LAB BLOOD ORDERABLES Final Result [facility] [address] [place] [address], * CT Abdomen Pelvis wo Contrast (05/14/2024 [...] MD on 05/14/2024 18:13:59 Jeffrey Rodriguez MD IMG CT PROCEDURES Final Res ult * POC , urine manually resulted (05/14/2024 1:28 PM EDT) Pathologist [facility] HCG, Ur POC Negative Negative POC hCG Int QC Pass? Yes Yes Urine Urine specimen obtained by clean catch procedure / Unknown 05/14/2024 1:28 PM EDT Jorge Bear DO POINT OF CARE TEST ENTER/ED IT ORDERABLES Final Result * CBC auto differential (05/14/2024 1:16 PM EDT) WBC 8.2 4.8 - 10.8 K/mcL LAB HEMETOLOGY METHOD 05/14/2024 1:35 PM EDT [facility] RBC 4.20 3.80 - 4.80 M/mcL LAB HEMETOLOGY METHOD 05/14/2024 1:35 PM EDT [facility] Hemoglobin 12.7 11.5 - 16.0 g/dL LAB HEMETOLOGY METHOD 05/14/2024 1:35 PM EDT [facility] Hematocrit 39.7 35.0 - 47.0 % LAB HEMETOLOGY METHOD 05/14/2024 1:35 PM EDT [facility] MCV 94.1 79.0 - 98.0 FL LAB HEMETOLOGY METHOD 05/14/2024 1:35 PM EDT [facility] MCH 30.1 27.0 - 32.0 pcg LAB HEMETOLOGY METHOD 05/14/2024 1:35 PM EDT [facility] MCHC 32.0 32.0 - 37.0 g/dL LAB H[facility]ETOLOGY [facility] RDW 13.2 11.0 - 15.0 % LAB HEMETOLOGY METHOD 05/14/2024 1:35 PM EDT [facility] Platelets 369 130 - 400 K/mcL LAB [facility]OLOGY [facility] MPV 9.1 7.0 - 11.0 FL LAB HEMETOLOGY METHOD [facility]/14[facility]2024 [facility] NRBC 0.0 <1.0 % LAB HEMETOLOGY METHOD 05/14/2024 1:35 PM EDT [facility] NRBC Absolute 0.00 <0.10 K/mcL LAB HEMETOLOGY METHOD 05/14/2024 1:35 PM EDT [facility] Neutrophils Relative 67.2 % LAB HEMETOLOGY METHOD [facility]/14[facility]2024 [facility] Lymphocytes Relative 24.6 % LAB HEMETOLOGY METHOD 05/14/2024 1:35 PM EDT [facility] Monocytes Relative 6.5 % LAB HEMETOLOGY METHOD 05/14/2024 1:35 PM EDT [facility] Eosinophils Relative 0.7 % LAB HEMETOLOGY METHOD 05/14/2024 1:35 PM EDT [facility] Basophils Relative 0.6 % LAB HEMETOLOGY METHOD 05/14/2024 1:35 PM EDT [facility] Immature Granulocytes Relative 0.4 % LAB HEMETOLOGY METHOD 05/14/2024 1:35 PM EDT [facility] Neutrophils Absolute 5.48 1.50 - 7.00 K/mcL LAB HEMETOLOGY METHOD 05/14/2024 1:35 PM EDT [facility] Lymphocytes Absolute 2.01 1.00 - 5.00 K/mcL LAB HEMETOLOGY METHOD 05/14/2024 1:35 PM EDT [facility] Monocytes Absolute 0.53 0.20 - 1.00 K/mcL LAB HEMETOLOGY METHOD 05/14/2024 1:35 PM EDT [facility] Eosinophils Absolute 0.06 0.00 - 0.50 K/mcL LAB HEMETOLOGY METHOD 05/14/2024 1:35 PM EDT [facility] Basophils Absolute 0.05 0.00 - 0.20 K/mcL LAB HEMETOLOGY METHOD 05/14/2024 1:35 PM EDT [facility] Immature Granulocytes Absolute 0.03 0.00 - 0.03 K/mcL LAB HEMETOLOGY METHOD 05/14/2024 1:35 PM EDT [facility] Blood Venous blood specimen / Unknown Venipuncture / Unknown 05/14/2024 1:16 PM EDT 05/14/2024 1:22 PM EDT us Jorge Bear DO LAB BLOOD ORDERABLES Final Result [facility] [address] [place] [address], * (ABNORMAL) Comprehensive metabolic panel (05/14/2024 1:16 PM EDT) [facility] Signature Sodium 138 133 - 145 mmol/L LAB CHEMISTRY METHOD 05/14/2024 1:[address] [facility] Potassium 3.9 3.5 - 5.5 mmol/L LAB CHEMISTRY METHOD 05/14/2024 1:[address] [facility] Chloride 107 96 - 110 mmol/L LAB CHEMISTRY METHOD 05/14/2024 1:[address] [facility] CO2 27 21 - 32 mmol/L LAB CHEMISTRY METHOD 05/14/2024 1:[address] [facility] Anion Gap 4 3 - 11 LAB CHEMISTRY METHOD 05/14/2024 1:[address] [facility] Glucose 109(H) 70 - 100 mg/dL LAB CHEMISTRY METHOD 05/14/2024 1:[address] [facility] BUN 7 5 - 25 mg/dL LAB CHEMISTRY METHOD 05/14/2024 1:[address] [facility] Creatinine 0.69 0.50 - 1.10 mg/dL LAB CHEMISTRY METHOD 05/14/2024 1:[address] [facility] eGFR 120 >=60 mL/min/1. 73m2 LAB CHEMISTRY METHOD 05/14/2024 1:[address] [facility] Comment:Calculation based on the??Chronic Kidney Disease Epidemiology Collaboration (CKD-EPI) equation refit??without adjustment for race. BUN/Creatinine Ratio 10.1 LAB CHEMISTRY METHOD 05/14/2024 1:[address] [facility] Calcium 9.0 8.5 - 10.5 mg/dL LAB CHEMISTRY METHOD 05/14/2024 1:[address] [facility] AST (SGOT) 12 10 - 42 unit/L LAB CHEMISTRY METHOD 05/14/2024 1:[address] [facility] ALT (SGPT) 21 10 - 60 unit/L LAB CHEMISTRY METHOD 05/14/2024 1:59 PM EDT [facility] Alkaline Phosphatase 68 42 - 121 unit/L LAB CHEMISTRY METHOD 05/14/2024 1:59 PM EDT [facility] Total Protein 6.8 6.0 - 8.0 g/dL LAB CHEMISTRY METHOD 05/14/2024 1:59 PM EDT [facility] Albumin 3.8 3.2 - 5.0 g/dL LAB CHEMISTRY METHOD 05/14/2024 1:59 PM EDT [facility] Total Bilirubin 0.5 0.0 - 1.4 mg/dL LAB CHEMISTRY METHOD 05/14/2024 1:59 PM EDT [facility] Blood Venous blood specimen / Unknown Venipuncture / Unknown 05/14/2024 1:16 PM EDT 05/14/2024 1:22 PM EDT Jorge Bear DO LAB BLOOD ORDERABLES Final Result Performing Organization Address City/[facility]/ZIP Co de Phone Number [facility] [address] [place] [address], [place] [phone] * Grover urine culture tube (05/14/2024 1:11 PM EDT) Extra Tube Hold for add-ons. 05/14/2024 3:02 PM EDT [facility] Comment:Auto resulted. Urine Urine specimen obtained by clean catch procedure / Unknown Non-blood Collection / Unknown 05/14/2024 1:11 PM EDT 05/14/2024 1:18 PM EDT Jorge Bear DO LAB URINE ORDERABLES Final Result Performing Organization Address City/[facility]/ZIP Co de Phone Number [facility] [address] [place] [address], [place] [phone] * (ABNORMAL) Urinalysis with reflex microscopic and culture (05/14/2024 1:11 PM EDT) Specific Amity Urine 1.021 1.003 - 1.030 LAB URINALYSIS - AUTOMATED METHOD 05/14/2024 1:[address] [facility] pH, Urine 6.5 5.0 - 8.0 pH LAB URINALYSIS - AUTOMATED METHOD 05/14/2024 1:[address] [facility] Leukocytes, Urine Negative Negative LAB URINALYSIS - AUTOMATED METHOD 05/14/2024 1:[address] [facility] Nitrite, Urine Negative Negative LAB URINALYSIS - AUTOMATED METHOD 05/14/2024 1:[address] [facility] Protein, Urine Trace <=Trace mg/dL LAB URINALYSIS - AUTOMATED METHOD 05/14/2024 1:[address] [facility] Glucose, Urine Negative Negative mg/dL LAB URINALYSIS - AUTOMATED METHOD 05/14/2024 1:[address] [facility] Ketones, Urine Trace(A) Negative mg/dL LAB URINALYSIS - AUTOMATED METHOD 05/14/2024 1:[address] [facility] Urobilinogen, Urine 0.2 0.2 - 1.0 mg/dL LAB URINALYSIS - AUTOMATED METHOD 05/14/2024 1:[address] [facility] Bilirubin, Urine Negative Negative LAB URINALYSIS - AUTOMATED METHOD 05/14/2024 1:[address] [facility] Blood, Urine Trace(A) Negative LAB URINALYSIS - AUTOMATED METHOD 05/14/2024 1:[address] [facility] RBC, Urine 10.8(H) 0 - 4 /HPF LAB URINALYSIS - AUTOMATED METHOD 05/14/2024 1:[address] [facility] WBC, Urine 3.6 0 - 4 /HPF LAB URINALYSIS - AUTOMATED METHOD 05/14/2024 1:25 PM EDT [facility] Squamous Epithelial, Urine >100(H) 0 - 60 /LPF LAB URINALYSIS - AUTOMATED METHOD 05/14/2024 1:25 PM EDT [facility] Bacteria, Urine Few(A) Negative /HPF LAB URINALYSIS - AUTOMATED METHOD 05/14/2024 1:25 PM EDT [facility] Hyaline Casts, Urine 1.2 0 - 3 /LPF LAB URINALYSIS - AUTOMATED METHOD 05/14/2024 1:25 PM EDT [facility] Urine Urine specimen obtained by clean catch procedure / Unknown Non-blood Collection / Unknown 05/14/2024 1:11 PM EDT 05/14/2024 1:17 PM EDT us Jorge Bear DO LAB URINE ORDERABLES Final Result [facility] [address] [place] [address], [place] [phone] documented in this encounter Visit Diagnoses Diagnosis Acute right-sided thoracic back pain- Primary documented in this encounter Administered Medications Inactive Administered Medications - up to 3 most recent administrations Medication Order MAR Action Action Date Dose Rate Site acetaminophen (TYLENOL) tablet 1,000 mg 1,000 mg, oral, Once, On Mon05/14/24 at 1803, For 1 dose Given 05/14/2024 6:15 PM EDT 1,000 mg ketorolac (TORADOL) injection 15 mg 15 mg, intravenous, Once, On Mon05/14/24 at 1803, For 1 dose Given 05/14/2024 6:15 PM EDT 15 mg sodium chloride 0.9 % bolus 1,000 mL 1,000 mL, intravenous, at 1,000 mL/hr, Administer over 1 Hours, Once, On Mon05/14/24 at 1803, For 1 dose New Bag 05/14/2024 6:15 PM EDT 1,000 mL 1000 mL/hr documented in this encounter Active and Recently Administered Medications Times are shown in EDT. Scheduled Medication Order 05/12/2024 05/13/2024 05/14/2024 acetaminophen (TYLENOL) tablet 1,000 mg (COMPLETED) 1,000 mg, oral, Once, On Mon05/14/24 at 1803, For 1 dose 1814 (Given - Provid er: Sheryl Logan, SHANNON) ketorolac (TORADOL) injection 15 mg (COMPLETED) 15 mg, intravenous, Once, On Mon05/14/24 at 1803, For 1 dose 1814 (Given - Provid er: Sheryl Logan RN) sodium chloride 0.9 % bolus 1,000 mL (COMPLETED) 1,000 mL, intravenous, at 1,000 mL/hr, Administer over 1 Hours, Once, On Mon05/14/24 at 1803, For 1 dose 1814 (New Bag - Prov ider: Sheryl Logan RN)2010 (Stopped - Provider: Cintia Wagner RN) documented in this encounter Care Teams Marine Reporter Relationship Specialty Start Date End Date Ainsley Patel MD [address] [place] [id number] PCP - General Family Medicine 05/14/24 documented as of this encounter
[2024-05-17 17:54] LABS: Appearance Urine Clear; Color Urine Yellow; Glucose Urine UA Negative (Negative); Leukocyte Esterase Urine Negative (Negative); Nitrite Urine Negative (Negative); PH 5.5 (5.0-9.0); UMIC TRIGGER UA YES; Urine Blood Small (1+) (Negative); Urine Ketones Negative (Negative); Urine Protein Negative (Neg-Trace)
[2024-05-17 18:06] LABS: Bacteria Urine None Seen (None Seen); Hyaline Casts Urine 0-2 /LPF (0-2); RBC Urine 0-2 /HPF (0-2); Squamous Epithelial Cell Urine 0-2 /HPF (0-2); WBC Urine 0-5 /HPF (0-5)
== END 2024-05-17 17:44 | disposition home or self-care (01) ==
LOC: HO.HHCLNP 17:43
PROVIDERS: Visit Provider Nurse Practitioner
DX: R10.9 Unspecified abdominal pain (principal); R31.29 Other microscopic hematuria
CPT/HCPCS: 81001; 87086

== ENCOUNTER 2024-11-11 15:00 | Outpatient (REF) | payer OTHER, SELFPAY ==
[2024-11-11 15:13] LABS: MANUAL DIFF FLAG NO
[2024-11-11 15:33] LABS: Hematocrit 39.3 % (37.0-47.0); Hemoglobin 13.5 g/dl (12.0-16.0); Imm Gran Abs Auto 0.04 X10*3/uL (0.00-0.03); Imm Gran Pct Auto 0.5 % (0.0-0.4); Lymphocytes Absolute Auto 1.5 X10*3/uL (1.2-4.9); Mean Corpuscular HGB Conc 34.4 g/dl (31.0-35.0); Mean Corpuscular Hemoglobin 30.4 pg (27.0-33.0); Mean Corpuscular Volume 88.5 fL (80.0-98.0); NRBC Abs Auto 0.000 X10*3/uL (0.0-0.012); NRBC Pct Auto 0.0 /100WBC (0.0-0.2); Platelet Count 352 X10*3/uL (160-400); Red Blood Count 4.44 X10*6/uL (4.20-5.50); White Blood Count 7.6 X10*3/uL (4.8-10.8)
[2024-11-11 16:02] LABS: Alanine Aminotransferase 16 U/L (0-31); Albumin Level 4.5 g/dL (3.5-5.0); Alkaline Phosphatase 61 U/L (39-117); Anion Gap 10 (12-20); Aspartate Amino Transferase 22 U/L (5-31); Blood Urea Nitrogen 9 mg/dL (9-16); Calcium 9.2 mg/dL (8.4-10.2); Carbon Dioxide 24 mmol/L (22-29); Chloride 109 mmol/L (96-108); Estimated Glomerular Filt Rate > 60; Potassium 4.0 mmol/L (3.3-5.1); Sodium 139 mmol/L (135-145); Total Protein 7.4 g/dL (6.5-8.0)
--- OUTSIDE RECORDS SUMMARY | 2024-11-11 17:23 | XMS_ITS | Encounter Summary ---
Author Organization [employer] Address [address] [place] [address] [address] [place] [address] Care Team Providers Care Graduate School Dean Name Role Phone Ainsley Patel MD Primary Care Provider [phone] Encounter Details Date Type Department Care Team (Late st Contact Info) Description 04/01/2022 Orders Only [facility] [address] [place], [place] [phone] Ainsley Patel MD [address] [place] [address] Neck pain (Primary Dx); Chronic bilateral thoracic back pain; Rheumatoid arthritis, involving unspecified site, unspecified whether rheumatoid factor present (CMS/[facility]) Social History Tobacco Use Types Packs/Day Years [...] as of this encounter Plan of Treatment Upcoming Encounters Date Type Department Care Team (Late st Contact Info) Description 12/04/2024 10:45 AM EDT Procedure Visit [facility] [address] [place] [address] Amberly Montero CNM [address] [place] [address] 12/12/2024 10:30 AM EST Office Visit [facility] [address] [place] [phone] Ainsley Patel MD [address] [place] [address] documented as of this encounter Visit Diagnoses Diagnosis Neck pain- Primary Cervicalgia Chronic bilateral thoracic back pain Rheumatoid arthritis, involving unspecified site, unspecified whether rheumatoid factor present (CMS/HCC) ([facility]) documented in this encounter Additional Health Concerns Assessment Noted Time PHQ-9 Depression Total Score: 0 03/15/19 23 10:09 AM EST documented as of this encounter Care Teams Graduate School Dean Relationship Specialty Start Date End Date Ainsley Patel MD [address] [place] [phone] PCP - General Family Medicine 02/16/22 documented as of this encounter
--- OUTSIDE RECORDS SUMMARY | 2024-11-11 17:24 | XMS_ITS | Encounter Summary ---
Author Organization [facility] Address [address] [facility] [facility] [address] [place] [address] Phone Care Team Providers Care Smoke Jumper Name Role Phone Ainsley Patel MD Primary Care Provider [phone] Encounter Details Date Type Department Care Team (Late st Contact Info) Description 04/20/2023 Procedure Pass OR Admitting Dept - Virtual Department [address] [place] [address] Social History Tobacco Use Types Packs/Day Years Used Date Smoking Tobacco: Never Smokeless Tobacco: Never Alcohol Use Standard Drinks/Week Comments Yes 1 (1 standard drink = 0.6 oz pur e alcohol) Education Answer Date Recorded Are you interested in more education? Not on simran e 11/16/2022 Are you concerned about learning? Not on file 11/16/2022 No 11/16/2022 No 11/16/2022 Digital Access Answer Date Recorded No 11/16/2022 No 11/16/2022 Reliable internet access at home? Not on file 11/16/2022 Device with a working camera? Not on file Comments No Sex and Gender Information Value Date Recorded Sex Assigned at Not on file Legal Sex Female 11:18 AM EDT Gender Identity Not on file Sexual Orientation Not on file documented as of this encounter Functional Status * Calculated C-SSRS Risk Score (Lifetime/Recent) Answer Date of Assessment Author No Risk Indicated 04/20/2023 9:24 AM EDT Annika Johnson, RN * [place] Suicide Severity Rating Scale (Screener/Recent Self-Report) Question Answer Date of Assessment Author 2. Non-Specific Active Suici fabi Thoughts (Past 1 Month) No 04/20/2023 9:24 AM EDT Charlotte Fulton RN documented as of this encounter Plan of Treatment Not on file documented as of this encounter Visit Diagnoses Not on filedocumented in this encounter Care Teams Smoke Jumper Relationship Specialty Start Date End Date Ainsley Patel MD [address] [place] [phone] PCP - General Family Medicine 11/16/22 documented as of this encounter Additional Source Comments The information contained in this document represents components of the legal health record. It is not the complete legal health record.[facility]
--- OUTSIDE RECORDS SUMMARY | 2024-11-11 17:24 | XMS_ITS | Encounter Summary ---
Author Organization [employer] Address [address] [place] [address] [address] [place] [address] Care Team Providers Care Manager Gyn Name Role Phone Ainsley Patel MD Primary Care Provider [phone] Encounter Details Date Type Department Care Team (Late st Contact Info) Description 01/13/2022 Orders Only [facility] [address] [place] [address] Amberly Montero CNM [address] [place], [place] [phone] Social History Tobacco Use Types Packs/Day Years [...] Description 12/04/2024 10:45 AM EDT Procedure Visit [facility] [address] [place] [address] Amberly Montero CNM [address] [place] [address] 12/12/2024 10:30 AM EST Office Visit [facility] [address] [place] [address] Ainsley Patel MD [address] [place] [address] documented as of this encounter Procedures Procedure Name Priority Date/Time Associated Diagnosis Comments PAP SMEAR Routine 07/15/2021 12:00 AM EDT documented in this encounter Results * Pap Smear (07/15/2021 12:00 AM EDT) Swab us Historical Provider LAB CYTOLOGY ORDERABLES F inal Result [facility] [address] [place] [address] documented in this encounter Visit Diagnoses Not on filedocumented in this encounter Care Teams Manager Gyn Relationship Specialty Start Date End Date Ainsley Patel MD [address] [place] [id number] PCP - General Family Medicine 02/16/22 documented as of this encounter
--- OUTSIDE RECORDS SUMMARY | 2024-11-11 17:24 | XMS_ITS | Clinical Summary ---
Author Organization [employer] Address [address] [place] [address] 7t [place] [address] Care Team Providers Care Balance Weigher Name Role Phone Ainsley Patel MD Primary Care Provider [phone] Allergies No known active allergies Medications ergocalciferol (Vitamin D-2) 1.25 MG (04869 UT) capsule Take 1 capsule by mouth 1 (one) time per week. 0 Active fluocinolone (Ruch-Smoothe) 0.01 % external oil Apply topically. 2 [...] 2 Active fluticasone (Flonase) 50 MCG/ACT nasal sprayIndications :Cough, unspecified type,URI, acute SPRAY 1 SPRAY INTO EACH NOSTRIL IN THE MORNING 48 mL 3 Active ulipristal (Sharon) 30 mg tablet Take one tablet by mouth up to five days after sex. Do not use more than once per menstrual cycle 1 tablet 11 3 Active famotidine (Pepcid) 20 MG tabletIndication s:Globus sensation Take 1 tablet twice daily as needed for acid reflux 40 tablet 3 Active Vit-Fe Fumarate-FA ( Plus) 27-1 MG tablet One tablet by mouth daily 30 tablet 11 4 Active sulfaSALAzine (Azulfidine) 500 MG tablet Take 1 tablet by mouth every 6 (six) hours during the day. 5 Active baclofen (Lioresal) 10 MG tabletIndication s:Right flank pain Take one tablet TID PRN 30 tablet 5 Active upadacitinib ER (Rinvoq) 15 MG tablet sustained-releas e 24 hour Take 15 mg by mouth Once per day. Do not crush, chew or split. Swallow whole. Active Hospital, Clinic, or Other Facility Administered Medication [...] relief - refer to plastic surgeon again URI, acute 06/06/2022 Assessment & Plan (06/06/2022 8:51 PM EDT): Rest (sleep at least 8 hours a night). Hydrate with plenty of water (avoid caffeine and alcohol). Use saline nose drops + Flonase nasal spray Take Acetaminophen (Tylenol )/Ibuprofen as needed for fever, headache, body aches [...] 72 hours (temperature should be less than 100 F without medication). 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 COLLECTOR -Feb 2018 PAP LSIL -April 2018 Colposcopy [...] EST): -Continue on supplement as prescribed by [employer] [facility]: Vit D = 27.2 on 11/10/21 [...] 2-3 days Knee pain 01/07/2022 Rheumatoid arthritis (CMS/HCC) 05/06/2020 Assessment & Plan (11/09/2022 5:01 AM [...] Encounters Date Type Department Care Team Description 11/11/2024 Orders Only GENERIC EXTERNAL DATA DEPARTMENT Provider, Generic External Data 10/31/2024 Patient Outreach [facility] [address] [place] [phone] Ainsley Patel MD Care Coordination (CM/CHW outreach) 09/02/2024 Telephone [facility] [address] [place] [phone] Amberly Montero CNM October recall from Last 3 Months Immunizations Immunization Administration Dates Next Due DTaP 11/18/1998, 7,02/03/1995,05/12,03/15/1994 HPV, Quadrivalent 07/28/2010,12/17/2009,11/19/19 09 Hep A, ped/adol, 2 dose 07/28/2010,12/17/2009 Hep B, Adolescent or Pediatric 02/03/1995,1994 Hib ([facility]) 03/04/1996, 5,05/12/1994,03/15 IPV 11/18/1998, 5,05/12/1994,03/15 Influenza Injectable [...] 82 05/17/2024 3:53 PM EDT Temperature 36.3 C (97.3 F) 05/17/2024 3:53 PM EDT Respiratory Rate 18 05/17/2024 3:53 PM EDT Oxygen Saturation 98% 05/17/2024 3:53 PM EDT Inhaled Oxygen Concentration - - Weight 71.2 kg (157 lb) 05/17/2024 3:53 PM EDT Height 152.4 cm (5') 10/16/2023 2:05 PM EDT Body Mass Index 30.66 10/16/2023 2:05 PM EDT Plan of Treatment Upcoming Encounters Date Type Department Care Team (Late st Contact Info) Description 12/04/2024 10:45 AM EDT Procedure Visit [facility] [address] [place] [phone] Amberly Montero CNM [address] [place] [address] 12/12/2024 10:30 AM EST Office Visit [address] [phone] Ainsley Patel MD [address] [place] [address] Health Maintenance Due Date Last Done Comments HIV Screening 1993 Disability Screening 1993 Hepatitis B Vaccines (3 of 3 - 3-dose series) 03/31/1995 02/03/1995, 03/15/1994, 1993 Alcohol/Substance Use Screening 2005 Family Planning (PISQ) 2008 Depression Screening 03/15/2023 03/15/2022, 03/15/19 HPV/Cotest 10/05/2023 10/04/2022 COVID-19 Vaccine ( season) 2024 11/09/2020, 10/19/2020 Influenza Vaccine (#1) 2024 , 03/07/2018, 11/20/2008 Cervical Cancer Screening 10/15/2024 Pap Smear 10/15/2024 10/16/2023, 09/07, 07/15/2021 SDOH [...] 12/18/19 10 Hepatitis C Screening Completed 07/16/2019 Meningococcal B Vaccine Aged Out No l onger eligible based on patient's age to complete this topic Pneumococcal Vaccine: Pediatrics (0 to 5 Years) and At-Risk Patients (6 to 49) Years Aged Out No longer eligible based on patient's age to complete this topic RSV under 20 months Aged Out No longe r eligible based on patient's age to complete this topic Rotavirus Vaccines Aged Out No longer eligible based on patient's age to complete this topic Procedures Procedure Name Priority Date/Time Associated Diagnosis Comments SED RATE BY MODIFIED KAMLESHERGREN Routine 11/11/2024 3:12 PM EDT C-REACTIVE PROTEIN Routine 11/11/2024 3: 12 PM EDT COMPREHENSIVE METABOLIC PANEL Routine 11/11/2024 3:12 PM EDT CBC WITH AUTO DIFFERENTIAL Routine 11/11/2024 3:12 PM EDT THINPREP IMAGING SYSTEM PAP Routine 10/16/2023 2:15 PM EDT Routine cervical smear HPV DNA PROBE, AMPLIFIED Routine 10/04/2022 12:00 AM EDT ZZZ HISTORICAL HEPATITIS A,B,C PROFILE Routine 07/16/2019 10:40 AM EDT from Last 3 Months or Most Recently Relevant to Health Maintenance Results * (ABNORMAL) CBC auto differential (11/11/2024 3:12 PM EDT) White Blood Count 7.6 4.8 - 10.8 X10*3/uL [facility] Red Blood Count 4.44 4.20 - 5.50 X10*6/uL [facility] Hemoglobin 13.5 12.0 - 16.0 g/dl [facility] Hematocrit 39.3 37.0 - 47.0 % [facility] Mean Corpuscular Volume 88.5 80.0 - 98.0 fL [facility] Mean Corpuscular Hemoglobin 30.4 27.0 - 33.0 pg [facility] Mean Corpuscular HGB Conc 34.4 31.0 - 35.0 g/dl [facility] Red Cell Distribution Width 13.0 11.0 - 16.0 % [facility] Platelet Count 352 160 - 400 X10*3/uL [facility] Mean Platelet Volume 9.2(L) 9.4 - 12.3 fL [facility] Neutrophils Percent Auto 69.4 45 - 73 % [facility] Imm Gran Pct Auto 0.5(H) 0.0 - 0.4 % [facility] Lymphocytes Percent Auto 19.6(L) 20 - 40 % [facility] Monocytes Percent Auto 8.5 2 - 11 % [facility] Eosinophils Percent Auto 1.5 0 - 4 % [facility] Basophils Percent Auto 0.5 0 - 2 % [facility] NRBC Pct Auto 0.0 0.0 - 0.2 /100WBC [facility] Neutrophils Absolute Auto 5.3 2.0 - 8.3 x10*3/uL [facility] Imm Gran Abs Auto 0.04(H) 0.00 - 0.03 X10*3/uL [facility] Lymphocytes Absolute Auto 1.5 1.2 - 4.9 X10*3/uL [facility] Monocytes Absolute Auto 0.6 0.1 - 1.2 X10*3/uL [facility] Eosinophils Absolute Auto 0.1 0.0 - 0.4 X10*3/uL [facility] Basophils Absolute Auto 0.0 0.0 - 0.2 X10*3/uL [facility] NRBC Abs Auto 0.000 0.0 - 0.012 X10*3/uL [facility] 11/11/2024 3:12 PM EDT 11/11/2024 3:12 PM EDT us Generic External Data Provider LAB BLOOD ORDERAB LES Final Result Performing Organization Address [facility]/ZIP Co de Phone Number [facility] [address] [place] [phone] * Sed Rate by Modified Eva (11/11/2024 3:12 PM EDT) Erythrocyte Sedimentation Rate 7 0 - 20 MM/HR [facility] Comment:Patients with polycy themia and many hemoglobin abnormalitiesmay have depressed sed rates whereas patients with anemiamay have elevated sed rates. 11/11/2024 3:12 PM EDT 11/11/2024 3:12 PM EDT us Generic External Data Provider LAB BLOOD ORDERAB LES Final Result Performing Organization Address [facility]/ZIP Co de Phone Number [facility] [address] [place] [phone] * C-reactive Protein (11/11/2024 3:12 PM EDT) C Reactive Protein 0.20 < or = 0.50 mg/dL [facility] 11/11/2024 3:12 PM EDT 11/11/2024 3:12 PM EDT us Generic External Data Provider LAB BLOOD ORDERAB LES Final Result [facility] [address] [place] [address] [phone] * (ABNORMAL) Comprehensive Metabolic Panel (11/11/2024 3:12 PM EDT) Sodium 139 135 - 145 mmol/L [facility] Potassium 4.0 3.3 - 5.1 mmol/L [facility] Chloride 109(H) 96 - 108 mmol/L [facility] Carbon Dioxide 24 22 - 29 mmol/L [facility] Anion Gap 10(L) 12 - 20 [facility] Urea Nitrogen (BUN) 9 9 - 16 mg/dL [facility] Creatinine, Serum 0.59 0.5 - 1.4 mg/dL [facility] Estimated Glomerular Filt Rate >60 [facility] Comment:Chronic Kidney Disea se: Estimated GFR < 60 mL/min/1.06b5Fbjltg Kidney Disease: Estimated GFR < 15 mL/min/1.73m2 Glucose 81 60 - 115 mg/dL [facility] Calcium 9.2 8.4 - 10.2 mg/dL [facility] Bilirubin, Total 0.3 0.0 - 1.0 mg/dL [facility] Aspartate Amino Transferase 22 5 - 31 U/L [facility] Alanine Aminotransferase 16 0 - 31 U/L [facility] Total Protein 7.4 6.5 - 8.0 g/dL [facility] Albumin Level 4.5 3.5 - 5.0 g/dL [facility] Alkaline Phosphatase 61 39 - 117 U/L [facility] 11/11/2024 3:12 PM EDT 11/11/2024 3:12 PM EDT us Generic External Data Provider LAB BLOOD ORDERAB LES Final Result [facility] [address] [place] [address] [phone] * Pap Smear (10/16/2023 2:15 PM EDT) SOURCE: SEE NOTE [facility] Comment:None given Report Status: [facility] Clinical Information: SEE NOTE [facility] Comment:None given LMP: SEE NOTE [facility] Comment:NONE GIVEN Prev. PAP: SEE NOTE [facility] Comment:NONE GIVEN Prev. BX: SEE NOTE [facility] Comment:NONE GIVEN Statement Of Adequacy: SEE NOTE [facility] Comment:Satisfactory for josé luis luation.Endocervical/transformation zone componentpresent. General Categorization: [facility] Interpretation/Result: SEE NOTE [facility] Comment:Cytology Results: Ne gative for intraepitheliallesion or malignancy. Cytology Comment SEE NOTE [facility] Comment:This Pap test has be en evaluated with computerassisted technology. Clinical Phlebotomist: SEE NOTE [facility] Comment:MRC, CT(ASCP) CT scr eening location: [address] [address] Review Clinical Phlebotomist: [facility] Pathologist [facility] PAP Infection [facility] See Note SEE [facility] Comment:EXPLANATORY NOTE:The Pap is a screening test for cervical cancer. It isnot a diagnostic test and is subject to false negativeand false positive results. It is most reliable when asatisfactory sample, regularly obtained, is submittedwith relevant clinical findings and history, and whenthe Pap result is evaluated along with historic andcurrent clinical information.THIS TEST WAS PERFORMED AT:[facility] [address] [phone] ROJAS MD Pap Vial Vaginal structure / Unknown 10/16/2023 2:15 PM EDT 10/16/2023 5:57 PM EDT Narrative [facility] - 10/19/2023 11:52 AM EDT SEE SCANNED RESULTS IN EMR Amberly Montero CNM LAB PATHOLOGY ORDERABLES Final Result Performing Organization Address City/[facility]/ZIP Co de Phone Number [facility] [address] [place] [phone] * HPV DNA probe, amplified (10/04/2022 12:00 AM EDT) Pathologist [facility] HPV mRNA E6/E7 Not Detected Not Detected [facility] Comment:Methodology: Transcr iption-Mediated AmplificationThis assay detects E6/E7 viral messenger RNA (mRNA) from 14high-risk HPV types (16,18,31,33,35,39,45,51,52,56,58,59,66,68).Cervical sources are required for HPV testing.If a vaginal source from a patient who has had atotal hysterectomy with removal of cervix wassubmitted, please contact the testing laboratoryfor alternative testing options.For additional information, please refer [email or web address](This link if provided for information/educational purposes only.)THIS TEST WAS PERFORMED AT:[facility] [place] [phone] ROJAS MD 10/04/2022 10/05/2022 10: 30 AM EDT Amberly Montero CNM LAB MICROBIOLOGY - GENERA L ORDERABLES Final Result Performing Organization Address City/[facility]/ZIP Co de Phone Number [facility] [address] [place] [phone] * HEPATITIS A,B,C PROFILE (07/16/2019 10:40 AM EDT) HEPATITIS B CORE ANTIBODY NONREACTIVE NONREACTIVE [facility] HEPATITIS B INTERPRETATION SEE NOTE [facility] Comment: Consistent with Hepatitis B immunization or recovery and immunity from Hepatitis B infection. HEPATITIS B SURFACE ANTIBODY REACTIVE NONREACTIVE [facility] Comment: REACTIVE: > 11.99 mIU/mL HEPATITIS B SURFACE ANTIGEN NEGATIVE NEGATIVE [facility] HEPATITIS C ANTIBODY NONREACTIVE NONREACTIVE [facility] Comment: Antibodies to HCV not detected; does not exclude early acute HCV infection. 07/16/2019 10:4 0 AM EDT us Historical Provider HISTORICAL/NON ORDERABLE LABS Final Result [facility] [address] from Last 3 Months or Most Recently Relevant to Health Maintenance Insurance [employer] C3 Care Teams Balance Weigher Relationship Specialty Start Date End Date Ainsley Patel MD [address] [place] [phone] PCP - General Family Medicine 02/16/22
--- OUTSIDE RECORDS SUMMARY | 2024-11-11 17:24 | XMS_ITS | Encounter Summary ---
Author Organization [employer] Address [address] [facility] 7t [place] [address] Care Team Providers Care Lacquer Dipping Machine Operator Name Role Phone Ainsley Patel MD Primary Care Provider [phone] Encounter Details Date Type Department Care Team (Late st Contact Info) Description 11/11/2024 Orders Only GENERIC EXTERNAL DATA DEPARTMENT Provider, Generic External Data Social History Tobacco Use Types Packs/Day Years [...] Description 12/04/2024 10:45 AM EDT Procedure Visit [facility] [address] [place], [place] [phone] Amberly Montero CNM [address] [place] [address] 12/12/2024 10:30 AM EST Office Visit [facility] [address] [place], [place] [phone] Ainsley Patel MD [address] [place], [place] [phone] documented as of this encounter Procedures Procedure Name Priority Date/Time Associated Diagnosis Comments CBC WITH AUTO DIFFERENTIAL Routine 11/11/2024 3:12 PM EDT SED RATE BY MODIFIED WESTERGREN Routine 11/11/2024 3:12 PM EDT C-REACTIVE PROTEIN Routine 11/11/2024 3: 12 PM EDT COMPREHENSIVE METABOLIC PANEL Routine 11/11/2024 3:12 PM EDT documented in this encounter Results * Sed Rate by Modified Westergren (11/11/2024 3:12 PM EDT) Erythrocyte Sedimentation Rate 7 0 - 20 MM/HR [facility] Comment:Patients with polycy themia and many hemoglobin abnormalitiesmay have depressed sed rates whereas patients with anemiamay have elevated sed rates. 11/11/2024 3:12 PM EDT 11/11/2024 3:12 PM EDT us Generic External Data Provider LAB BLOOD ORDERAB LES Final Result Performing Organization Address City/[facility]/ZIP Co de Phone Number [facility] [address] [place] [phone] * C-reactive Protein (11/11/2024 3:12 PM EDT) Pathologist [facility] C Reactive Protein 0.20 < or = 0.50 mg/dL [facility] 11/11/2024 3:12 PM EDT 11/11/2024 3:12 PM EDT Generic External Data Provider LAB BLOOD ORDERAB LES Final Result Performing Organization Address [facility] de Phone Number [facility] [address] [place] [phone] * (ABNORMAL) Comprehensive Metabolic Panel (11/11/2024 3:12 PM EDT) Pathologist [facility] Sodium 139 135 - 145 mmol/L [facility] Potassium 4.0 3.3 - 5.1 mmol/L [facility] Chloride 109(H) 96 - 108 mmol/L [facility] Carbon Dioxide 24 22 - 29 mmol/L [facility] Anion Gap 10(L) 12 - 20 [facility] Urea Nitrogen (BUN) 9 9 - 16 mg/dL [facility] Creatinine, Serum 0.59 0.5 - 1.4 mg/dL [facility] Estimated Glomerular Filt Rate >60 [facility] Comment:Chronic Kidney Disea se: Estimated GFR < 60 mL/min/1.09f5Crpqpi Kidney Disease: Estimated GFR < 15 mL/min/1.73m2 Glucose 81 60 - 115 mg/dL [facility] Calcium 9.2 8.4 - 10.2 mg/dL [facility] Bilirubin, Total 0.3 0.0 - 1.0 mg/dL [facility] Aspartate Amino Transferase 22 5 - 31 U/L [facility] Alanine Aminotransferase 16 0 - 31 U/L [facility] Total Protein 7.4 6.5 - 8.0 g/dL [facility] Albumin Level 4.5 3.5 - 5.0 g/dL [facility] Alkaline Phosphatase 61 39 - 117 U/L [facility] 11/11/2024 3:12 PM EDT 11/11/2024 3:12 PM EDT us Generic External Data Provider LAB BLOOD ORDERAB LES Final Result [facility] [address] [place] [phone] * (ABNORMAL) CBC auto differential (11/11/2024 3:12 PM EDT) White Blood Count 7.6 4.8 - 10.8 X10*3/uL [facility] Red Blood Count 4.44 4.20 - 5.50 X10*6/uL [facility] Hemoglobin 13.5 12.0 - 16.0 g/dl [facility] Hematocrit 39.3 37.0 - 47.0 % [facility] Mean Corpuscular Volume 88.5 80.0 - 98.0 fL [facility] Mean Corpuscular Hemoglobin 30.4 27.0 - 33.0 pg [facility] Mean Corpuscular HGB Conc 34.4 31.0 - 35.0 g/dl [facility] Red Cell Distribution Width 13.0 11.0 - 16.0 % [facility] Platelet Count 352 160 - 400 X10*3/uL [facility] Mean Platelet Volume 9.2(L) 9.4 - 12.3 fL [facility] Neutrophils Percent Auto 69.4 45 - 73 % [facility] Imm Gran Pct Auto 0.5(H) 0.0 - 0.4 % [facility] Lymphocytes Percent Auto 19.6(L) 20 - 40 % [facility] Monocytes Percent Auto 8.5 2 - 11 % [facility] Eosinophils Percent Auto 1.5 0 - 4 % [facility] Basophils Percent Auto 0.5 0 - 2 % [facility] NRBC Pct Auto 0.0 0.0 - 0.2 /100WBC [facility] Neutrophils Absolute Auto 5.3 2.0 - 8.3 x10*3/uL [facility] Imm Gran Abs Auto 0.04(H) 0.00 - 0.03 X10*3/uL [facility] Lymphocytes Absolute Auto 1.5 1.2 - 4.9 X10*3/uL [facility] Monocytes Absolute Auto 0.6 0.1 - 1.2 X10*3/uL [facility] Eosinophils Absolute Auto 0.1 0.0 - 0.4 X10*3/uL [facility] Basophils Absolute Auto 0.0 0.0 - 0.2 X10*3/uL [facility] NRBC Abs Auto 0.000 0.0 - 0.012 X10*3/uL [facility] 11/11/2024 3:12 PM EDT 11/11/2024 3:12 PM EDT us Generic External Data Provider LAB BLOOD ORDERAB LES Final Result Performing Organization Address City/State/[facility] Co de Phone Number [facility] [address] [place] [address] [phone] documented in this encounter Visit Diagnoses Not on filedocumented in this encounter Additional Health Concerns Assessment Noted Time PHQ-9 Depression Total Score: 0 03/15/19 23 10:09 AM EST documented as of this encounter Care Teams Lacquer Dipping Machine Operator Relationship Specialty Start Date End Date Ainsley Patel MD [address] [place] [address] PCP - General Family Medicine 02/16/22 documented as of this encounter
--- OUTSIDE RECORDS SUMMARY | 2024-11-11 17:24 | XMS_ITS | Encounter Summary ---
Author Organization [employer] [facility] Address [address] [place] [address] 7t [place] [address] Care Team Providers Care Mattress Packer Name Role Phone Ainsley Patel MD Primary Care Provider [phone] Encounter Details Date Type Department Care Team ([facility] Contact Info) Description 01/11/2022 Abstract [facility] [address] [place] [address] [phone] ProviderWaqar MD Social History Tobacco Use Types [...] Encounters Date Type Department Care Team (Late Contact Info) Description 12/04/2024 10:45 AM EDT Procedure Visit [facility] [address] [place] [address] [phone] Amberly Montero CNM [address] [place], [place] [phone] 12/12/2024 10:30 AM EST Office Visit [facility] [address] [place] [address] [phone] Ainsley Patel MD [address] [place] [address] documented as of this encounter Visit Diagnoses Not on filedocumented in this encounter Care Teams Mattress Packer Relationship Specialty Start Date End Date Ainsley Patel MD [address] [place] [phone] PCP - General Family Medicine 02/16/22 documented as of this encounter
--- OUTSIDE RECORDS SUMMARY | 2024-11-11 17:24 | XMS_ITS | Clinical Summary ---
Author Organization [facility] Address [address] [place] [address] Phone Care Team Providers Care Glove Examiner Name Role Phone Ainsley Patel MD Primary Care Provider [phone] Allergies No known active allergies Social History Tobacco Use Types Packs/Day Years [...] 72 05/14/2024 6:01 PM EDT Temperature 37.3 C (99.1 F) 05/14/2024 6:01 PM EDT Respiratory Rate 16 05/14/2024 6:01 PM EDT [...] 03/15/1994 Cervical Cancer Screening: Pap Smear 2014 Depression Screening 02/07/2024 HIV Screening 05/14/2024 Hepatitis C Screening 05/14/2024 Social Influencers of Health Screening 05/14/2024 COVID-19 Vaccine ( season) 2024 11/09/2020, 10/19/2020 Influenza Vaccine (#1) 2024 , 03/07/2018, 11/20/2008 DTaP,Tdap,and Td Vaccines (11 - Td or Tdap) 10/04/2028 10/04/2018, 08/13/2018, 09/27/2014, Additional history exists RSV Immunization Adult Patients (1 - 1-dose 75+ series) 2068 HIB [...] 5 Years) and At-Risk Patients (6 to 49 Years) Aged Out No longer eligible based on patient's age to complete this topic RSV Immunization Patients Under 20 months Aged Out No longer eligible based on patient's age to complete this topic Insurance [place] Care Teams Glove Examiner Relationship Specialty Start Date End Date Ainsley Patel MD [address] [place] [phone] PCP - General Family Medicine 05/14/24
--- OUTSIDE RECORDS SUMMARY | 2024-11-11 17:24 | XMS_ITS | Clinical Summary ---
Author Organization [facility] Address [id number] [place] [address] Phone Care Team Providers Care Electric Utility Lineworker Name Role Phone Ainsley Patel MD Primary Care Provider [phone] Allergies No known active allergies Medications ondansetron (ZOFRAN) 4 MG tablet Take 1 tablet (4 mg total) by mouth every 8 (eight) hours as needed for nausea. 30 tablet 2 04/05/2023 Active docusate sodium (COLACE) 100 MG capsule Take 1 capsule (100 mg total) by mouth 2 (two) times a day. 30 capsule 04/05/2023 Active oxyCODONE-aceta minophen (PERCOCET) 5-325 mg per tablet Take 1 tablet by mouth every 4 (four) hours as needed for pain (specific location in comments). Partial fill ok 30 tablet 04/05/2023 Active upadacitinib (RINVOQ ORAL) Take by mouth. Active Active Problems Problem Noted Date Diagnosed Date Macromastia 03/14/2023 Neck pain 03/14/2023 Upper back pain 03/14/2023 Family History Relation Status Comments Father Alive Mother Alive Social History Tobacco Use Types Packs/Day Years Used Date Smoking Tobacco: Never Smokeless Tobacco: Never Tobacco Cessation:Counseling Given: Not Answered Alcohol Use Standard Drinks/Week Comments Yes 1 (1 standard drink = 0.6 oz pur e alcohol) Education Answer Date Recorded Are you interested in more education? Not on ismran e 11/16/2022 Are you concerned about learning? [...] on file Sexual Orientation Not on file Last Filed Vital Signs Vital Sign Reading Time Taken Comments Blood Pressure 128/95 04/20/2023 3:00 PM EDT Pulse 90 04/20/2023 3:00 PM EDT Temperature 37.2 C (99 F) 04/20/2023 2:15 PM EDT Respiratory Rate 11 04/20/2023 3:00 PM EDT Oxygen Saturation 95% 04/20/2023 4:08 PM EDT Inhaled Oxygen Concentration - - Weight 75.8 kg (167 lb) 04/20/2023 9:35 AM EDT Height 154.9 cm (5' 1 ) 04/20/2023 9:35 AM EDT Body Mass Index 31.55 04/20/2023 9:35 AM EDT Plan of Treatment Health Maintenance Due Date Last Done Comments DEPRESSION SCREENING 2005 HEPATITIS C SCREENING 12/21/2011 HIV ONE-TIME SCREENING (18-65 YEARS) 12/21/2011 PNEUMOCOCCAL VACCINES (0-49 years) (1 of 2 - PCV) 2012 PAP SMEAR 2014 COVID-19 VACCINE (3 - Pfizer risk series) 12/07/2020 11/09/2020, 10/19/2020 INFLUENZA VACCINE (#1) 2024 10/23/2019, 2008 Adult Td,Tdap Booster 10/04/2028 10/04/2018 , 08/13/2018, 09/27/2014, Additional history exists HIB VACCINES Completed 03/04/1996, 01/07, 05/12/1994, Additional history exists MENINGOCOCCAL VACCINES (ACWY) Aged Out 12/26/2006 No longer eligible based on patient's age to complete this topic HEPATITIS A VACCINES Completed 07/28/2010, 12/18/19 SMOKING STATUS SCREENING (Once After 26 Yrs) Completed 04/20/2023 MENINGOCOCCAL VACCINES (B) Aged Out N o longer eligible based on patient's age to complete this topic Medical Devices [place] [phone] Advance Directives For more information, please contact: [phone] (9AM - 5PM [facility], Monday-Monday) Documents on File Type Date Recorded Patient Supervisor Tree Trimming Expl anation Healthcare Proxy 04/24/2023 3:24 PM * Full Code (Latest Code Status on File) Date Activated Date Inactivated Comments 04/20/2023 9:06 AM Question Answer Comments Code Status Confirmed With: Patient Care Teams Electric Utility Lineworker Relationship Specialty Start Date End Date Ainsley Patel MD [address] [place] [address] PCP - General Family Medicine 11/16/22 Additional Source Comments The information contained in this document represents components of the legal health record. It is not the complete legal health record.[facility]
--- OUTSIDE RECORDS SUMMARY | 2024-11-11 17:24 | XMS_ITS | Encounter Summary ---
Author Organization [employer] Address [address] [facility] [address] [place] [address] Care Team Providers Care Maternal Fetal Physician Name Role Phone Ainsley Patel MD Primary Care Provider [phone] Encounter Details Date Type Department Care Team (Late st Contact Info) Description 05/16/2024 Orders Only [facility] [address] [place] [address] Provider, MD Waqar Social History Tobacco Use Types Packs/Day Years [...] Description 12/04/2024 10:45 AM EDT Procedure Visit [facility] [address] [place] [address] [id number] Amberly Montero CNM [address] [place] [address] 12/12/2024 10:30 AM EST Office Visit [address] [address] Ainsley Patel MD [address] [place] [phone] documented as of this encounter Procedures Procedure [...] documented as of this encounter Care Teams Maternal Fetal Physician Relationship Specialty Start Date End Date Ainsley Patel MD [address] [place] [address] [phone] PCP - General Family Medicine 02/16/22 documented as of this encounter
[2024-11-12 08:17] LABS: HBS Num1 0.32 mIU/mL (0-7.99); HBc Num1 0.06 S/CO (0.00-0.79); HBsAGNum1 0.48 S/CO (0.00-0.99); Hepatitis A Antibody IgM 0.25 Index (0-0.79); Hepatitis B Surface Antigen Negative (Negative); ~HepC Num1 0.12 S/CO (0.00-0.79); ~Hepatitis A Antibody IgM Nonreactive (Nonreactive); ~Hepatitis B Surface Antibody NONREACTIVE (Nonreactive); ~Hepatitis C Antibody Nonreactive (Nonreactive)
== END 2024-11-11 15:01 | disposition home or self-care (01) ==
LOC: HO.LAB 15:00
PROVIDERS: PCP Family Medicine; Visit Provider Student in an Organized Health Care Education/Training Program
DX: Z11.59 Encounter for screening for other viral diseases (principal); M05.9 Rheumatoid arthritis with rheumatoid factor, unspecified; Z79.899 Other long term (current) drug therapy
CPT/HCPCS: 36415; 80053; 85025; 85652; 86140; 86704; 86706; 86709; 86803; 87340

== ENCOUNTER 2025-01-14 09:57 | Outpatient (REF) | payer MEDICAID, SELFPAY ==
--- NOTE | ~2025-01-14 | US_ITS ---
EXAMINATION: US DIAGNOSTIC ULTRASOUND BREAST, LEFT CLINICAL INFORMATION: History of the left breast lump for one year. Provided did not enter diagnostic mammogram order as the patient is currently . COMPARISON: None available. FINDINGS: Targeted ultrasound of the left breast was performed at the location of the palpable concern as indicated by the patient. The survey shows an oval hypoechoic parallel oriented solid mass measuring 0.7 x 0.5 x 0.4 cm at 12 o'clock position 3 cm from the nipple. Minimal peripheral vascularity demonstrated with color Doppler evaluation. US/US Breast LT Limited Mamm Only IMPRESSION: Left breast: Palpable concern correlates with the solid mass measuring 0.7 x 0.5 x 0.4 cm at 12 o'clock position 3 cm from the nipple. Probably benign. A 6-month follow-up ultrasound is recommended (which can be scheduled for after delivery of the current ). At that time, bilateral diagnostic mammogram is also suggested to be performed on the same day (if breast-feeding, the patient is advised to pump the breasts prior to the exam). Results are provided to the patient at time of visit by the technologist. ASSESSMENT: Category 3: Probably benign RECOMMENDATION: 6 Month F/U Electronically signed by: Aurelio Ann MD 01/14/2025 10:59 AM EST
== END 2025-01-14 09:58 | disposition home or self-care (01) ==
LOC: HO.MAMMO 09:57
PROVIDERS: PCP Family Medicine; Visit Provider Family Medicine
DX: O92.29 Other disorders of breast associated with pregnancy and the puerperium (principal); Z3A.00 Weeks of gestation of pregnancy not specified
CPT/HCPCS: 76642

== ENCOUNTER → 2025-01-14 10:00 | Outpatient (BNV) | payer MEDICAID, SELFPAY | PROVIDERS: PCP Family Medicine; Visit Provider Radiology Body Imaging | DX: N63.25 Unspecified lump in the left breast, overlapping quadrants (principal) | CPT/HCPCS: 76642 ==